=== PATIENT | male | born 1955 | race Caucasian/White ===

== ENCOUNTER 2019-03-14 00:37 | Inpatient (IN) ==
[2019-03-14] MEDS ORDERED: IOPAMIDOL 100 ML BOTTLE IV ONE (00:38)
[2019-03-14] MEDS ORDERED: HYDROmorphone 2 MG/ML VIAL IV SCH (01:00)
[2019-03-14] MEDS ORDERED: 0.9 % SODIUM CHLORIDE 1,000 ML IV ONE ×4 (01:00→09:17)
[2019-03-14] MEDS ORDERED: ONDANSETRON 4 MG/2 ML VIAL IV ONE (01:00)
--- NOTE | 2019-03-14 01:02 | Emergency Department Note ---
General Adult HPI - General Chief complaint: Chest Pain Stated complaint: chest pain Time Seen by Provider: 03/14/19 00:57 Source: patient Mode of arrival: ambulatory Limitations: no limitations - History of Present Illness HPI Narrative: This patient has been having significant left upper quadrant pain for the last several hours may be 2 to 3 hours. Does not really feel pain in his chest. He says that some mild discomfort coming on for 2 weeks. He says is often worse after eating. - Related Data Home Medications Medication Instructions Recorded Confirmed hydrocodone 5 mg-acetaminophen 325 See Rx Instructions PO Q6H PRN 06/08/18 03/14/19 mg tablet naproxen 250 mg tablet 250 mg PO .COMPLEX PRN tab 06/08/18 03/14/19 tiotropium bromide 18 mcg capsule 1 cap INHALATION QDAY 06/08/18 03/14/19 with inhalation device Previous Rx's Medication Instructions Recorded albuterol sulfate 90 mcg/actuation 2 puff INHALATION Q4H PRN #18 g 06/10/18 aerosol inhaler tiotropium bromide 18 mcg capsule 1 cap INHALATION QDAY #90 puff 06/30/18 with inhalation device albuterol sulfate 90 mcg/actuation 2 puff INHALATION Q4H PRN #54 g 12/14/18 aerosol inhaler fluticasone propionate-salmeterol 2 puff INHALATION BID #36 g 12/14/18 230 mcg-21 mcg/actuation HFA inhaler ipratropium-albuterol 0.5 mg-3 3 ml INHALATION Q6H PRN #360 ml 12/14/18 mg(2.5 mg base)/3 mL nebulization soln Allergies Allergy/AdvReac Type Severity Reaction Status Date / Time Varenicline Allergy Unknown "made him Verified 01/05/19 12:58 mean" Review of Systems All systems ED: reviewed and negative except as stated. Past Medical History - Past Medical History PMF Narrative: Medical History (Last Reviewed 01/05/19 @ 13:29 by Andre Bell MD) Tobacco dependence (Chronic) Dyspnea on exertion (Chronic) Asthmatic bronchitis , chronic (Chronic) Wrist fracture (Chronic) Shoulder dislocation (Chronic ~2009) Low vitamin B12 level (Chronic 02/05/14) Vitamin D deficiency (Chronic 02/05/14) Blood pressure elevated without history of HTN (Chronic 12/17/13) Sleep related hypoventilation in conditions classified elsewhere (Chronic 01/10/14) Heartburn (Chronic) Shortness of breath (Chronic) Cough (Chronic) Osteopenia (Chronic 12/07/13) Hyporeflexia (Chronic) Intention tremor (Chronic) Obesity (Chronic) Excessive drinking alcohol (Chronic) Daytime somnolence (Chronic) Fracture of thoracic vertebra, compression (Chronic 11/13/13) Constipation (Chronic) Low back pain (Chronic) Sleep paralysis (Chronic) Obstructive sleep apnea (Chronic 01/10/14) Snoring (Chronic) COPD (chronic obstructive pulmonary disease) (Chronic) Past Surgical History (Last Reviewed 01/05/19 @ 13:29 by Andre Bell MD) History of shoulder surgery (Chronic ~2010) S/P hernia repair (Chronic ~1996) Family History (Last Reviewed 01/05/19 @ 13:29 by Andre Bell MD) Father High blood pressure Snores Mother Snores - Social History smoking status: Current every day smoker Physical Exam Limitations: no limitations General appearance: alert Head: atraumatic Eye: Present: normal appearance ENT: Present: normal exam Neck: Present: normal inspection Chest: Present: normal inspection Respiratory: Present: normal lung sounds bilaterally Cardiovascular: Present: regular rate, normal rhythm, normal heart sounds Abdominal: Present: soft, distention, tenderness, guarding. Absent: rebound, rigidity Abdominal tenderness: Present: LUQ, moderate Neurological: Present: alert Psychiatric: Present: normal affect Skin: Present: warm, dry Course Vital Signs Temperature 98.2 F 03/14/19 00:41 Pulse Rate 90 03/14/19 00:41 Respiratory Rate 26 H 03/14/19 00:41 Blood Pressure 110/91 03/14/19 00:41 Pulse Oximetry (%) 96 03/14/19 00:41 Temperature 97.9 F 03/14/19 05:45 Pulse Rate 95 H 03/14/19 06:33 Respiratory Rate 23 H 03/14/19 06:33 Blood Pressure 85/58 03/14/19 06:33 Pulse Oximetry (%) 99 03/14/19 06:33 Medical Decision Making - [facility] Narrative Medical decision making narrative: CT scan showed a large left upper quadrant retroperitoneal hematoma near the spleen. It measured about 6 x 14 x 19 cm. His lipase was elevated in the 200 range. Alcohol was minimal. Patient does not take blood thinners and has no h istory of recent trauma to the left upper quadrant. I discussed this case with both Dr. Hendrix and Dr. Rubalcava. Dr. Hendrix said that this is a nonoperative type case but he would consult and requested Dr. Rubalcava to admit the patient. Dr. Rubalcava did accept the patient for admission at 3 AM. - Lab Data Lab results reviewed: Yes I reviewed the patient's lab results. Result diagrams: 03/14/19 01:05 03/14/19 01:05 Lab Results 03/14/19 03/14/19 03/14/19 Range/Units 01:05 01:05 01:05 WBC 14.3 H (4.5-11.0) K/mcL RBC 4.04 L (4.50-5.90) M/mcL Hgb 12.2 L (13.5-16.5) g/dL Hct 35.7 L (41.0-55.0) % POC Hct (41.0-55.0) % MCV 88.4 (80.0-100.0) fL MCH 30.2 (26.0-34.0) pg MCHC 34.2 (31.0-36.0) g/dL RDW 13.0 (11.5-14.5) % Plt Count 383 (140-440) K/mcL MPV 7.7 (7.4-10.4) fL Gran % 74.9 (38.0-78.0) % Lymph % (Auto) 15.6 (15.5-49.0) % Brule % (Auto) 6.9 (1.0-12.0) % Eos % (Auto) 2.3 (0.0-7.0) % Baso % (Auto) 0.3 (0.0-2.0) % Gran # 10.7 H (1.8-8.0) K/mcL Lymph # (Auto) 2.2 (1.5-4.8) K/mcL Brule # (Auto) 1.0 H (0.1-0.9) K/mcL Eos # (Auto) 0.3 (0.0-0.7) K/mcL Baso # (Auto) 0 (0.0-0.3) K/mcL PT (11.9-14.5) sec INR (0.9-1.1) POC Sodium (133-145) mmol/L Sodium 135 (133-145) mmol/L POC Potassium (3.3-5.1) mmol/L Potassium 3.9 (3.3-5.1) mmol/L POC Chloride (96-108) mmol/L Chloride 95 L (96-108) mmol/L Carbon Dioxide 25 (22-30) mmol/L POC Total CO2 (22-30) mmol/L Anion Gap 15.0 (8-16) POC BUN (8-23) mg/dl BUN 11 (8-23) mg/dl Creatinine 0.8 (0.7-1.2) mg/dl POC Creatinine (0.7-1.2) mg/dl GFR Calculation 96 Glucose 151 H (70-105) mg/dL POC Glucose (70-105) mg/dL Calcium 8.8 (8.6-10.4) mg/dl POC WB Ioniz Calcium (1.16-1.32) mmol/L Total Bilirubin 0.2 (0.0-1.0) mg/dL AST 17 (0-37) U/l ALT 18 (0-40) U/l Alkaline Phosphatase 53 (39-117) U/L Troponin T < 0.01 (0-0.03) ng/ml Total Protein 6.9 (5.9-8.4) gm/dL Albumin 3.8 (3.2-5.2) gm/dL Globulin 3.1 (2.2-3.7) gm/dL Albumin/Globulin Ratio 1.2 (1.0-2.3) Lipase 213 H (7-60) U/L Ethyl Alcohol (<0.010) gm/dl 03/14/19 03/14/19 03/14/19 Range/Units 01:05 01:05 01:30 WBC (4.5-11.0) K/mcL RBC (4.50-5.90) M/mcL Hgb (13.5-16.5) g/dL Hct (41.0-55.0) % POC Hct 30.0 L (41.0-55.0) % MCV (80.0-100.0) fL MCH (26.0-34.0) pg MCHC (31.0-36.0) g/dL RDW (11.5-14.5) % Plt Count (140-440) K/mcL MPV (7.4-10.4) fL Gran % (38.0-78.0) % Lymph % (Auto) (15.5-49.0) % Brule % (Auto) (1.0-12.0) % Eos % (Auto) (0.0-7.0) % Baso % (Auto) (0.0-2.0) % Gran # (1.8-8.0) K/mcL Lymph # (Auto) (1.5-4.8) K/mcL Brule # (Auto) (0.1-0.9) K/mcL Eos # (Auto) (0.0-0.7) K/mcL Baso # (Auto) (0.0-0.3) K/mcL PT 13.2 (11.9-14.5) sec INR 1.0 (0.9-1.1) POC Sodium 134 (133-145) mmol/L Sodium (133-145) mmol/L POC Potassium 3.6 (3.3-5.1) mmol/L Potassium (3.3-5.1) mmol/L POC Chloride 98 (96-108) mmol/L Chloride (96-108) mmol/L Carbon Dioxide (22-30) mmol/L POC Total CO2 27 (22-30) mmol/L Anion Gap (8-16) POC BUN 10 (8-23) mg/dl BUN (8-23) mg/dl Creatinine (0.7-1.2) mg/dl POC Creatinine 0.8 (0.7-1.2) mg/dl GFR Calculation Glucose (70-105) mg/dL POC Glucose 126 H (70-105) mg/dL Calcium (8.6-10.4) mg/dl POC WB Ioniz Calcium 1.07 L (1.16-1.32) mmol/L Total Bilirubin (0.0-1.0) mg/dL AST (0-37) U/l ALT (0-40) U/l Alkaline Phosphatase (39-117) U/L Troponin T (0-0.03) ng/ml Total Protein (5.9-8.4) gm/dL Albumin (3.2-5.2) gm/dL Globulin (2.2-3.7) gm/dL Albumin/Globulin Ratio (1.0-2.3) Lipase (7-60) U/L Ethyl Alcohol 0.013 H (<0.010) gm/dl - Radiology Data Radiology results reviewed: Yes I reviewed the patient's radiology results. Disposition Pt seen by ASSOCIATE DIRECTOR FINANCE/PA only: No Clinical Impression: Retroperitoneal hemorrhage, Pancreatitis Disposition: Xfer As Inpt ([facility]) Condition: Fair
[2019-03-14 01:34] LABS: Basophils # (Auto) 0 K/mcL (0.0-0.3); Basophils % (Auto) 0.3 % (0.0-2.0); Eosinophils # (Auto) 0.3 K/mcL (0.0-0.7); Eosinophils % (Auto) 2.3 % (0.0-7.0); Granulocytes % (Auto) 74.9 % (38.0-78.0); Hematocrit 35.7 % (41.0-55.0); Hemoglobin 12.2 g/dL (13.5-16.5); Lymphocytes # (Auto) 2.2 K/mcL (1.5-4.8); Lymphocytes % (Auto) 15.6 % (15.5-49.0); Mean Cell Volume 88.4 fL (80.0-100.0); Mean Corpuscular HGB Conc 34.2 g/dL (31.0-36.0); Mean Platelet Volume 7.7 fL (7.4-10.4); Monocytes % (Auto) 6.9 % (1.0-12.0); Platelet Count 383 K/mcL (140-440); RBC 4.04 M/mcL (4.50-5.90); WBC 14.3 K/mcL (4.5-11.0)
[2019-03-14 01:39] LABS: POC Blood Urea Nitrogen 10 mg/dl (8-23); POC CO2 27 mmol/L (22-30); POC Calcium, Ionized 1.07 mmol/L (1.16-1.32); POC Chloride 98 mmol/L (96-108); POC Creatinine 0.8 mg/dl (0.7-1.2); POC Glucose, Random 126 mg/dL (70-105); POC Potassium 3.6 mmol/L (3.3-5.1); POC Sodium 134 mmol/L (133-145)
[2019-03-14 01:57] LABS: Alcohol,Blood 0.013 gm/dl (<0.010)
[2019-03-14 02:03] LABS: ALT/SGPT 18 U/l (0-40); AST/SGOT 17 U/l (0-37); Albumin 3.8 gm/dL (3.2-5.2); Albumin/Globulin Ratio 1.2 (1.0-2.3); Alkaline Phosphatase 53 U/L (39-117); Bilirubin,Total 0.2 mg/dL (0.0-1.0); Blood Urea Nitrogen 11 mg/dl (8-23); Calcium 8.8 mg/dl (8.6-10.4); Carbon Dioxide 25 mmol/L (22-30); Chloride 95 mmol/L (96-108); Globulin 3.1 gm/dL (2.2-3.7); Glomerular Filtration Rate 96; Glucose 151 mg/dL (70-105)
[2019-03-14] MEDS ORDERED: HYDROmorphone 2 MG/ML VIAL IV ONE ×2 (03:07→04:05)
[2019-03-14 03:42] LABS: Prothrombin Time 13.2 sec (11.9-14.5)
--- NOTE | 2019-03-14 05:51 | XRay Report ---
INDICATION: Chest pain TECHNIQUE: AP chest x-ray,portable semiupright COMPARISON: Previous chest x-ray dated 08/26/2018 FINDINGS:Lungs are negative. No parenchymal infiltrate or mass. No focal pulmonary parenchymal abnormality. Heart size and vascularity are normal. Jaja and mediastinum are negative. No pleural fluid. IMPRESSION: 1. Negative AP chest x-ray 2. No interval change since 08/26/2018 Interpreted and Authenticated by: Ace Ferreira 03/14/19
[2019-03-14] MEDS ORDERED: NOREPINEPHRINE BITARTRATE 4 MG/4 ML VIAL IV ONE (06:06)
--- NOTE | 2019-03-14 06:16 | Internal Med History&Physical ---
Medical - H&P: [facility] Patient information: Note initiated : 03/14/19 at 6:16 am Service Date, if different from initiated Date: [] Patient: Armando Aoms a 63 y/o M admitted on 03/14/19 for chest pain. Chief Complaint: [] Chief complaint: Abdominal pain History of present illness: Mr. Amos is a 63 year old M with a known history of COPD managed by pulmonology Dr. Bell. Patient presents to the ER with progressive upper abdominal pain that started roughly 2 weeks prior to presentation that has gradually intensified. He denies abdominal trauma or nausea or emesis. He further denies hematemesis or bloody stool. He denies weight loss. He denies pain worsening with respiration however pain is made worse by eating. Initial work-up in the ER was consistent with retroperitoneal hemorrhage on CT. Surgery was consulted and recommended hospitalist service to admit for monitoring and observation. Patient initial hemoglobin was 12.4 with systolics around mid 90s.. Patient received crystalloids. Initial white count 14.3. INR 1 creatinine 0.8. Hospitalist service was subsequently consulted At the time of evaluation patient is slightly anxious. Systolics around low 90s. No tachycardia or diaphoresis. Patient able to answer most of the questions. He complains of abdominal discomfort with pain 6 out of 10 to 8 out of 10 epigastric area relating to the flank and back. He denies recent trauma, URI symptoms, prior history of similar episodes or hospitalization or peptic ulcer disease. He is mildly short of breath but consistent with his baseline COPD. Review of systems A 10 point review system was performed and is negative except was discussed above Medical - H&P: PMH Medical history: Tobacco dependence (Chronic) Dyspnea on exertion (Chronic) Asthmatic bronchitis , chronic (Chronic) Wrist fracture (Chronic) Shoulder dislocation (Chronic ~2009) with chip of bone Low vitamin B12 level (Chronic 02/05/14) Vitamin D deficiency (Chronic 02/05/14) Blood pressure elevated without history of HTN (Chronic 12/17/13) Sleep related hypoventilation in conditions classified elsewhere (Chronic 01/10/14) Heartburn (Chronic) Shortness of breath (Chronic) Cough (Chronic) Osteopenia (Chronic 12/07/13) Hyporeflexia (Chronic) Intention tremor (Chronic) Obesity (Chronic) Excessive drinking alcohol (Chronic) Daytime somnolence (Chronic) Fracture of thoracic vertebra, compression (Chronic 11/13/13) Constipation (Chronic) Low back pain (Chronic) Sleep paralysis (Chronic) Obstructive sleep apnea (Chronic 01/10/14) Snoring (Chronic) COPD (chronic obstructive pulmonary disease) (Chronic) Surgical History History of shoulder surgery (Chronic ~2010) S/P hernia repair (Chronic ~1996) Family History Father High blood pressure Snores Mother Snores Social History marital status: single occupational status: employed smoking status: Current every day smoker tobacco type: cigarettes per day: 15 pack-years: 40 alcohol intake frequency: 2+ drinks per day substance use type: does not use Medical - H&P: Meds Home Medications Medication Instructions Recorded Confirmed Type hydrocodone 5 mg-acetaminophen 325 See Rx Instructions PO Q6H PRN 06/08/18 03/14/19 History mg tablet naproxen 250 mg tablet 250 mg PO .COMPLEX PRN tab 06/08/18 03/14/19 History tiotropium bromide 18 mcg capsule 1 cap INHALATION QDAY 06/08/18 03/14/19 History with inhalation device albuterol sulfate 90 mcg/actuation 2 puff INHALATION Q4H PRN #18 g 06/10/18 03/14/19 Rx aerosol inhaler tiotropium bromide 18 mcg capsule 1 cap INHALATION QDAY #90 puff 06/30/18 03/14/19 Rx with inhalation device albuterol sulfate 90 mcg/actuation 2 puff INHALATION Q4H PRN #54 g 12/14/18 03/14/19 Rx aerosol inhaler fluticasone propionate-salmeterol 2 puff INHALATION BID #36 g 12/14/18 03/14/19 Rx 230 mcg-21 mcg/actuation HFA inhaler ipratropium-albuterol 0.5 mg-3 3 ml INHALATION Q6H PRN #360 ml 12/14/18 03/14/19 Rx mg(2.5 mg base)/3 mL nebulization soln Allergies Allergy/AdvReac Type Severity Reaction Status Date / Time Varenicline AdvReac Mild Agitated Verified 03/14/19 07:55 Medical - H&P: Exam - Constitutional Vitals: Temp Pulse Resp BP Pulse Ox 98.2 F 98 H 15 80/61 99 03/14/19 05:38 03/14/19 05:38 03/14/19 05:38 03/14/19 05:38 03/14/19 05:38 General appearance: moderate distress Exam: Alert oriented Head normocephalic Oral cavity dry Eye movement symmetrical No ear nose discharge Neck no lymphadenopathy S1-S2 regular rhythm Diminished breath sounds bases Abdomen distended, tender around the epigastric/left flank Lower extremity no cyanosis clubbing no joint swelling Skin no suspicious lesion Psych anxious but cooperative Neuro nonfocal Medical - H&P: Reslt - Labs CBC & Chem 7: 03/14/19 08:00 03/14/19 01:05 Labs: Short CBC 03/14/19 Range/Units 01:05 WBC 14.3 H (4.5-11.0) K/mcL Hgb 12.2 L (13.5-16.5) g/dL Hct 35.7 L (41.0-55.0) % Plt Count 383 (140-440) K/mcL BMP 03/14/19 01:05 Sodium 135 Potassium 3.9 Chloride 95 L Carbon Dioxide 25 BUN 11 Creatinine 0.8 Glucose 151 H Calcium 8.8 Cardiac Enzymes 03/14/19 Range/Units 01:05 Troponin T < 0.01 (0-0.03) ng/ml Liver Function 03/14/19 Range/Units 01:05 Total Bilirubin 0.2 (0.0-1.0) mg/dL AST 17 (0-37) U/l ALT 18 (0-40) U/l Alkaline Phosphatase 53 (39-117) U/L Albumin 3.8 (3.2-5.2) gm/dL Medical - H&P: A/P - Narrative A/P Narrative: * Acute retroperitoneal hemorrhage nontraumatic-surgery consulted. Continue close monitoring in ICU. Every 2 H&H and transfuse as indicated. Crystalloid support. Keep n.p.o. No evidence of colopathy. * History of COPD continue bronchodilators * abdominal pain continue Pain management as indicated. * History of JOHNNY * Tobacco dependence * Full code * Prophylaxis-hold in light of bleeding Plan * Inpatient ICU admit in light of intracranial hemorrhage * Surgery consult * crystalloid/pressors as indicated to keep map at goal * PRBC transfusion as indicated * 2 hourly hemoglobin check * Prior medical condition management on as above
[2019-03-14] MEDS ORDERED: LACTATED RINGERS 1,000 ML IV ONE (06:24)
[2019-03-14] MEDS ORDERED: LACTATED RINGERS 1,000 ML IV SCH ×2 (06:30)
--- NOTE | 2019-03-14 06:38 | Cat Scan Report ---
CLINICAL INFORMATION: Left upper quadrant pain TECHNIQUE: Axial postcontrast enhanced images through the abdomen and pelvis. Sagittal and coronal reformatted images COMPARISON: None. FINDINGS: Spleen and left upper quadrant are abnormal. There is a large retroperitoneal hematoma in the left upper quadrant as well as moderate hemoperitoneum. Spleen is abnormal with an appearance consistent with subcapsular hemorrhage. No focal intrasplenic, intraparenchymal hematoma. Patient does not have a history of trauma. Appearance is consistent with splenic rupture with a large subcapsular hematoma and retroperitoneal hematoma. There is no contrast extravasation. There is no pseudoaneurysm. Spleen appears otherwise negative without definite splenic enlargement. No focal intrasplenic mass. Spontaneous splenic rupture is an unusual occurrence but is described. Splenic and portal veins are opacified but appear small. Inferior vena cava is small. Hypotension is possible. Clinical correlation is necessary. Splenic artery is normal. There are no significant perisplenic or retroperitoneal varices. No evidence for cirrhosis. Lung bases are negative. No pleural fluid or pericardial fluid. Liver is negative. No focal intrahepatic abnormality. Liver contour is smooth. No evidence for cirrhosis. Gallbladder is present. No calcified gallstones. No dilated bile ducts. There is perihepatic fluid. LESTER values are approximately 35 consistent with hemorrhagic fluid. Negative pancreas. No pancreatic mass. No peripancreatic abnormality. No evidence for pancreatitis Negative adrenal glands. Kidneys are negative. No solid mass. No hydronephrosis. There is a benign right renal cyst. No hydroureter. No ureteral calculi. No bladder stones. Abdominal aorta is negative. This calcification but no abdominal aortic aneurysm. No acute lumbar compression fracture. No sacral or pelvic fracture. Examination was initially interpreted by [facility]. This report is discrepant as normal spleen was described. Patient's nurse in the intensive care unit, Dr. Verma, and Dr. Hendrix were all called with these results, 03/14/2019, 0630 IMPRESSION: 1. Acute retroperitoneal and subcapsular perisplenic hemorrhage. Associated hemoperitoneum 2. Findings are consistent with splenic rupture, possibly spontaneous. 3. Inferior vena cava, splenic vein, portal vein are small in caliber. Possible hypotension. 4. No intrasplenic abnormality. No splenomegaly. Interpreted and Authenticated by: Ace Ferreira 03/14/19
[2019-03-14 06:43] LABS: POC Blood Urea Nitrogen 15 mg/dl (8-23); POC CO2 26 mmol/L (22-30); POC Calcium, Ionized 1.08 mmol/L (1.16-1.32); POC Chloride 101 mmol/L (96-108); POC Creatinine 1.1 mg/dl (0.7-1.2); POC Glucose, Random 172 mg/dL (70-105); POC Potassium 5.9 mmol/L (3.3-5.1); POC Sodium 133 mmol/L (133-145)
[2019-03-14] MEDS ORDERED: 0.9 % SODIUM CHLORIDE 250 ML IV SCH ×4 (07:15→10:54)
[2019-03-14] MEDS ORDERED: PIPERACILLIN SODIUM/TAZOBACTAM 3.375 GM in DEXTROSE 5% IN WATER 50 ML IV ONE (07:43)
[2019-03-14] MEDS ORDERED: methylPREDNISolone SOD SUCC 40 MG/ML VIAL IV ONE (07:58)
[2019-03-14] MEDS ORDERED: methylPREDNISolone SOD SUCC 125 MG/2 ML VIAL IV ONE (08:01)
[2019-03-14 08:03] LABS: Basophils # (Auto) 0 K/mcL (0.0-0.3); Basophils % (Auto) 0.2 % (0.0-2.0); Eosinophils # (Auto) 0.1 K/mcL (0.0-0.7); Eosinophils % (Auto) 0.7 % (0.0-7.0); Granulocytes % (Auto) 82.4 % (38.0-78.0); Hematocrit 25.4 % (41.0-55.0); Hemoglobin 8.5 g/dL (13.5-16.5); Lymphocytes # (Auto) 1.9 K/mcL (1.5-4.8); Lymphocytes % (Auto) 12.9 % (15.5-49.0); Mean Cell Volume 89.9 fL (80.0-100.0); Mean Corpuscular HGB Conc 33.6 g/dL (31.0-36.0); Mean Platelet Volume 8.1 fL (7.4-10.4); Monocytes # (Auto) 0.5 K/mcL (0.1-0.9); Monocytes % (Auto) 3.8 % (1.0-12.0); Platelet Count 363 K/mcL (140-440); RBC 2.83 M/mcL (4.50-5.90); Red Cell Distribution Width 13.1 % (11.5-14.5); WBC 14.6 K/mcL (4.5-11.0)
[2019-03-14] MEDS ORDERED: methylPREDNISolone SOD SUCC 125 MG/2 ML VIAL ONE (08:03)
--- NOTE | 2019-03-14 08:08 | General Surg History&Physical ---
History of Present Illness Patient information: Note initiated : 03/14/19 at 8:05 am Service Date, if different from initiated Date: [] Patient: Armando Amos 63 y/o M admitted on 03/14/19 for chest pain. Chief Complaint: [] HPI: Mr. Amos is a 63 year old M admitted to ICU last evening for suspected retroperitoneal bleed according to reading on CT. The patient did started to deteriorate with drop in blood pressure. He was given IV fluids and blood and started on levo fed by Dr. Rubalcava. reread of the C3 by our radiologist shows a major perisplenic hematoma with some intraperitoneal blood down the right gutter into the pelvis and some over the liver compatible with splenic rupture. Patient has no history of infection or cancer minute type. He is not on any blood thinner medications. He is stable now and has received 3 units of blood. He is counseled for emergency laparotomy. Past History Past medical history: Chronic obstructive lung disease Obstructive sleep apnea Alcoholism with alcohol excess Past social history: Excessive daily alcohol use Daily tobacco use Medications and Allergies Home Medications Medication Instructions Recorded Confirmed Type hydrocodone 5 mg-acetaminophen 325 See Rx Instructions PO Q6H PRN 06/08/18 03/14/19 History mg tablet naproxen 250 mg tablet 250 mg PO .COMPLEX PRN tab 06/08/18 03/14/19 History tiotropium bromide 18 mcg capsule 1 cap INHALATION QDAY 06/08/18 03/14/19 History with inhalation device albuterol sulfate 90 mcg/actuation 2 puff INHALATION Q4H PRN #18 g 06/10/18 03/14/19 Rx aerosol inhaler tiotropium bromide 18 mcg capsule 1 cap INHALATION QDAY #90 puff 06/30/18 03/14/19 Rx with inhalation device albuterol sulfate 90 mcg/actuation 2 puff INHALATION Q4H PRN #54 g 12/14/18 03/14/19 Rx aerosol inhaler fluticasone propionate-salmeterol 2 puff INHALATION BID #36 g 12/14/18 03/14/19 Rx 230 mcg-21 mcg/actuation HFA inhaler ipratropium-albuterol 0.5 mg-3 3 ml INHALATION Q6H PRN #360 ml 12/14/18 03/14/19 Rx mg(2.5 mg base)/3 mL nebulization soln Allergies Allergy/AdvReac Type Severity Reaction Status Date / Time Varenicline AdvReac Mild Agitated Verified 03/14/19 07:55 Exam Temp Pulse Resp BP Pulse Ox 97.9 F 95 H 23 H 85/58 99 03/14/19 05:45 03/14/19 06:33 03/14/19 06:33 03/14/19 06:33 03/14/19 06:33 - General physical appearance well developed, well nourished, no distress, moderate distress, moderate pain, obese - Eyes PERRL, normal ocular movement - ENT normal pinna, normal nares, normal mucosa, no hearing loss, no congestion - Head Head exam IM: Present: atraumatic, normocephalic - Neck no masses, no bruits, trachea midline, no lymphadenopathy, no venous distension - Cardiovascular Cardiovascular exam IM: Present: normal rate and rhythm, RRR, +S1, +S2, tachycardia. Absent: JVD - Respiratory normal expansion, normal respiratory effort, clear to percussion, clear to auscultation - Abdomen Abdomen: Present: soft, tender (distended abdomen with tenderness in the entire right upper quadrant; active bowel sounds), bowel sounds Hernia: Present: none - Genitourinary Present: normal penis with no external lesions - Integumentary Present: no rash, no growths, no abnormal pigmentation - Neurologic Present: normal coordination, normal sensation - Musculoskeletal Present: normal gait, normal posture - Psychiatric Present: oriented to time, oriented to person, oriented to place, speech is normal, memory intact Assessment and Plan (1) Nontraumatic splenic rupture Patient is counseled for emergency laparotomy with splenectomy. He is clinically stable at this time after 3 units of packed red cells. Status: Acute (2) COPD (chronic obstructive pulmonary disease) Patient is informed that he may need to be ventilated postoperatively since I do not know the severity of his lung disease. Status: Chronic Qualifiers: COPD type: unspecified COPD Qualified Code(s): J44.9 - Chronic obstructive pulmonary disease, unspecified (3) Obstructive sleep apnea Status: Chronic
[2019-03-14] MEDS ORDERED: HEPARIN/NS 500 ML IV ONE (08:09)
[2019-03-14] MEDS ORDERED: HEPARIN/NS 500 ML IV SCH ×2 (08:15→10:54)
[2019-03-14] MEDS ORDERED: METOCLOPRAMIDE 10 MG/2 ML VIAL IV ONE (08:17)
[2019-03-14] MEDS ORDERED: METOCLOPRAMIDE 10 MG/2 ML VIAL ONE (08:19)
[2019-03-14] MEDS ORDERED: LIDOCAINE HCL/PF 100 MG/5 ML SYRINGE IV ONE (08:40)
[2019-03-14] MEDS ORDERED: KETAMINE 100 MG/ML ML IV ONE (08:40)
[2019-03-14] MEDS ORDERED: fentaNYL 250 MCG/5 ML VIAL IV ONE (08:40)
[2019-03-14] MEDS ORDERED: MAGNESIUM SULFATE 2 GM/50 ML BAG IV ONE (08:40)
[2019-03-14] MEDS ORDERED: ePHEDrine 50 MG/ML AMPUL IV ONE (08:40)
[2019-03-14] MEDS ORDERED: PROPOFOL 200 MG/20 ML VIAL IV ONE (08:40)
[2019-03-14] MEDS ORDERED: SODIUM CHLORIDE IV ONE (08:40)
[2019-03-14] MEDS ORDERED: MIDAZOLAM 5 MG/5 ML VIAL IV ONE (08:40)
[2019-03-14] MEDS ORDERED: DEXAMETHASONE 10 MG/ML VIAL IV ONE (08:40)
[2019-03-14] MEDS ORDERED: ROCURONIUM 10 MG/ML ML IV ONE (08:40)
[2019-03-14] MEDS ORDERED: CALCIUM CHLORIDE 1,000 MG/10 ML SYRINGE IV ONE (08:40)
[2019-03-14] MEDS ORDERED: PHENYLEPHRINE 10 MG/ML VIAL IV ONE (08:40)
[2019-03-14] MEDS ORDERED: KCL IV ONE (08:40)
[2019-03-14] MEDS ORDERED: NOREPINEPHRINE BITARTRATE 16 MG in 0.9 % SODIUM CHLORIDE 234 ML IV SCH ×2 (09:15→09:49)
[2019-03-14] MEDS ORDERED: 0.9 % SODIUM CHLORIDE 10 ML SYRINGE IV PRN ×2 (09:37→10:54)
[2019-03-14 09:58] LABS: POC Blood Urea Nitrogen 13 mg/dl (8-23); POC CO2 23 mmol/L (22-30); POC Calcium, Ionized 1.13 mmol/L (1.16-1.32); POC Chloride 106 mmol/L (96-108); POC Creatinine 0.7 mg/dl (0.7-1.2); POC Glucose, Random 151 mg/dL (70-105); POC Potassium 5.6 mmol/L (3.3-5.1); POC Sodium 135 mmol/L (133-145)
--- NOTE | 2019-03-14 10:08 | Brief Operative Note ---
Date of procedure: 03/14/19 Pre-op diagnosis: spontaneous splenic rupture Post-op diagnosis: other (spontaneous splenic rupture with hemoperitoneum) Procedure: EXPLORATORY LAPAROTOMY WITH SPLENECTOMY Grafts/Implants: No (#10 [place] DRAIN X 1) Anesthesia: GETA Findings: MAJOR RUPTURE WITH SEPARATION OF CAPSULE AND FREE MASSIVE HEMOPERITONEUM Complications: none Surgeon: Jessica Hendrix Specimens Removed/Pathology: other (SPLEEN) Condition: stable Disposition: ICU
[2019-03-14] MEDS ORDERED: PROMETHAZINE 25 MG/ML VIAL IV PRN ×2 (10:20→10:54)
[2019-03-14] MEDS ORDERED: LORazepam 2 MG/ML VIAL IV PRN (10:20)
[2019-03-14] MEDS ORDERED: HYDROmorphone 2 MG/ML VIAL IV PRN (10:20)
[2019-03-14] MEDS ORDERED: 0.9 % SODIUM CHLORIDE 1,000 ML IV SCH ×2 (10:30→10:54)
[2019-03-14] MEDS ORDERED: ACETAMINOPHEN 1,000 MG in PREMIX 1 BAG IV SCH (10:30)
[2019-03-14] MEDS ORDERED: PIPERACILLIN SODIUM/TAZOBACTAM 3.375 GM in DEXTROSE 5% IN WATER 50 ML IV SCH (11:00)
--- NOTE | 2019-03-14 11:00 | XRay Report ---
INDICATION: Central venous catheter placement TECHNIQUE: AP chest x-ray,portable supine COMPARISON: Previous, preoperative evaluation dated 03/14/2019 FINDINGS:Endotracheal tube tip 5 cm above the janeth. There is a right-sided central venous catheter with its tip in appropriate position for superior vena cava. No thorax identified on this AP, supine radiograph. There is an esophagogastric tube with its tip in the stomach. There are multiple skin conor in the upper abdomen. There is a surgical drain in the left upper quadrant Lungs are negative. No parenchymal infiltrate or mass. No focal abnormality. Heart size and vascularity are within normal limits. This report was called to the operating room. IMPRESSION: 1. Right central venous catheter in the superior vena cava. Esophagogastric tube and endotracheal tube as above 2. No focal pulmonary parenchymal infiltrate or mass. Heart size and vascularity are normal Interpreted and Authenticated by: Ace Ferreira 03/14/19
[2019-03-14] MEDS: PIPERACILLIN SODIUM/TAZOBACTAM 3.375 GM in DEXTROSE 5% IN WATER 50 ML IV SCH ×2 (11:15→19:15)
[2019-03-14] MEDS: 0.9 % SODIUM CHLORIDE 1,000 ML IV SCH (11:15)
--- NOTE | 2019-03-14 11:31 | Procedure Note ---
Procedures - Arterial Line Date of Procedure: 03/14/19 Time out performed: Yes Size (Gauge): 20 Technique used: guide wire technique Post-Procedure: dry sterile dressing placed, easily flushed, waveform correlation Patient tolerated procedure: well, no complications Complications: none Site: right, radial Additional comments: Right radial arterial catheter placed in ICU pre-operatively. - Central Line Placement Right IJ Consent obtained: verbal consent Date of Procedure: 03/14/19 Time out performed: Yes Patient placed on monitor/pulse ox: Yes MD prep: mask, sterile gown, sterile gloves, cap Central line prep: 2% Chlorhexidine scrub, large sterile drapes applied, proper hand hygiene Ultrasound used for placement: Yes Central line lumen inserted: quad, 16 cm Post procedure: sutured in place, good blood return, all ports aspirated, flushed, capped, sterile dressing applied Post procedure x-ray: tip of catheter in good position Patient tolerated procedure: well Complications: none Additional comments: Right IJ large bore multi-access catheter placed with typical sterile technique after induction of anesthesia and airway securement. After surgical procedure, quad lumen central venous catheter placed with guidewire technique and MAC catheter discontinued.
[2019-03-14] MEDS ORDERED: METOCLOPRAMIDE 10 MG/2 ML VIAL IV SCH (12:00)
[2019-03-14] MEDS: MIDAZOLAM PF 50 MG in 0.9 % SODIUM CHLORIDE 90 ML IV SCH (12:09)
[2019-03-14] MEDS: fentaNYL 2,500 MCG in 0.9 % SODIUM CHLORIDE 200 ML IV SCH (12:10)
[2019-03-14] MEDS: METOCLOPRAMIDE 10 MG/2 ML VIAL IV SCH ×2 (12:26→19:15)
[2019-03-14] MEDS: ACETAMINOPHEN 1,000 MG/100 ML BOTTLE IV SCH ×3 (12:26→22:33)
[2019-03-14 13:25] LABS: POC Blood Urea Nitrogen 15 mg/dl (8-23); POC CO2 27 mmol/L (22-30); POC Calcium, Ionized 1.05 mmol/L (1.16-1.32); POC Chloride 103 mmol/L (96-108); POC Creatinine 0.9 mg/dl (0.7-1.2); POC Glucose, Random 133 mg/dL (70-105); POC Sodium 135 mmol/L (133-145)
[2019-03-14] MEDS ORDERED: 0.9 % SODIUM CHLORIDE 500 ML IV ONE (13:38)
[2019-03-14] MEDS ORDERED: FUROSEMIDE 20 MG/2 ML VIAL IV ONE (13:38)
[2019-03-14] MEDS: NOREPINEPHRINE BITARTRATE 16 MG in 0.9 % SODIUM CHLORIDE 234 ML IV SCH (13:40)
--- NOTE | 2019-03-14 14:22 | Internal Med Progress Note ---
Medical - PN: Subj Patient information: Note initiated : 03/14/19 at 2:16 pm Service Date, if different from initiated Date: [] Patient: Armando Amos a 63 y/o M admitted on 03/14/19 for chest pain. Chief Complaint: [] Pertinent ROS: Mr. Amos is a 63 year old M with a known history of COPD managed by pulmonology Dr. Bell. Patient presents to the ER with progressive upper abdominal pain that started roughly 2 weeks prior to presentation that has gradually intensified. He denies abdominal trauma or nausea or emesis. He further denies hematemesis or bloody stool. He denies weight loss. He denies pain worsening with respiration however pain is made worse by eating. Initial work-up in the ER was consistent with retroperitoneal hemorrhage on CT. Surgery was consulted and recommended hospitalist service to admit for monitoring and observation. Patient initial hemoglobin was 12.4 with systolics around mid 90s.. Patient received crystalloids. Initial white count 14.3. INR 1 creatinine 0.8. Hospitalist service was subsequently consulted At the time of evaluation patient is slightly anxious. Systolics around low 90s. No tachycardia or diaphoresis. Patient able to answer most of the questions. He complains of abdominal discomfort with pain 6 out of 10 to 8 out of 10 epigastric area relating to the flank and back. He denies recent trauma, URI symptoms, prior history of similar episodes or hospitalization or peptic ulcer disease. He is mildly short of breath but consistent with his baseline COPD. 03/14 6.30- Responded to nurse call early this morning with dropping systolics. Hematocrit down to 24 from 35. Systolics down to mid 70s. Start aggressive crystalloid resuscitation/massive transfusion protocol with 4 units PRBC/vasopressors. Surgery consulted for emergent surgical intervention. 03/14-2 PM Patient now postop expiratory restart me. Status post 6 units PRBC transfusion. Currently on mechanical ventilation. On pressors to maintain map at goal. ICU sedation for mechanical ventilation on fentanyl/Versed. Potassium at 6. Initiate hyperkalemia protocol. Continue mechanical ventilation per protocol. Continue diuresis/crystalloids - Constitutional Vitals: Vital Signs Temp Pulse Resp BP Pulse Ox 96.1 F L 79 16 105/77 100 03/14/19 13:39 03/14/19 13:39 03/14/19 13:39 03/14/19 13:39 03/14/19 13:39 Period Temp Pulse Resp BP Sys/Best Pulse Ox Last 24 Hr 94.3 F-98.2 F 73-109 9-38 67-157/40-129 84-100 Intake and Output 03/14/19 03/14/19 03/14/19 05:59 13:59 21:59 Intake Total 1999 1868 Output Total 1080 Balance 1999 789 Weight 210 lb Intake & Output: Intake & Output 03/14/19 03/14/19 03/14/19 05:59 13:59 21:59 Intake Total 1999 1868 Output Total 1080 Balance 1999 789 Weight 210 lb Intake: IV 1999 1868 Sodium Chloride 0.9% 1,000 ml @ 1999 1000 Wide Open IV BOLUS ONE Rx#: [id number] Sodium Chloride 0.9% 250 ml @ 19 20 mls/hr IV .[id number] [facility] Rx#: [id number] Lactated Ringers 1,000 ml @ 150 800 mls/hr IV .[id number] [facility] Rx#: [id number] Zosyn 3.375 gm In Dextrose 5% 50 in Water 50 ml @ 100 mls/hr IV ONCE ONE Rx#:[id number] Output: Drainage 30 Left Lower MONIKA Drain 30 Urine Catheter Amount 300 Estimated Blood Loss 750 Other: Urine Appearance Clear Urine Color Dark Yellow Exam: On mechanical ventilation 40% FiO2 PEEP 5 Jessica is draining clear urine Postoperative dressing abdomen A-line in place Medical - PN: Obj Da - Labs CBC & Chem 7: 03/14/19 08:00 03/14/19 01:05 Labs: Abnormal Lab Results 03/14/19 03/14/19 03/14/19 13:06 09:53 08:00 WBC 14.6 H RBC 2.83 L Hgb 8.5 L Hct 25.4 L POC Hct 37.0 L 27.0 L Gran % 82.4 H Lymph % (Auto) 12.9 L Gran # 12.0 H [place] # (Auto) POC Potassium 6.0 H* 5.6 H Chloride Glucose POC Glucose 133 H 151 H POC WB Ioniz Calcium 1.05 L 1.13 L Lipase Ethyl Alcohol 03/14/19 03/14/19 03/14/19 06:25 01:30 01:05 WBC RBC Hgb Hct POC Hct 24.0 L 30.0 L Gran % Lymph % (Auto) Gran # [place] # (Auto) POC Potassium 5.9 H* Chloride Glucose POC Glucose 172 H 126 H POC WB Ioniz Calcium 1.08 L 1.07 L Lipase Ethyl Alcohol 0.013 H 03/14/19 03/14/19 01:05 01:05 WBC 14.3 H RBC 4.04 L Hgb 12.2 L Hct 35.7 L POC Hct Gran % Lymph % (Auto) Gran # 10.7 H [place] # (Auto) 1.0 H POC Potassium Chloride 95 L Glucose 151 H POC Glucose POC WB Ioniz Calcium Lipase 213 H Ethyl Alcohol Meds: Medications Hydromorphone HCl (Dilaudid) 1 mg IV Q2HP PRN PRN Reason: PAIN LEVEL > 6 Acetaminophen (Ofirmev) 1,000 mg in 100 mls @ 200 mls/hr IV Q6H [facility] Stop: 03/15/19 10:20 Last Admin: 03/14/19 12:26 Dose: 200 mls/hr Documented by: Heparin Sodium/Sodium Chloride (Heparin/Ns) 500 mls @ 0 mls/hr IV .Q0M JENNY; Protocol Norepinephrine Bitartrate 16 (mg/ Sodium Chloride) 250 mls @ 9.375 mls/hr IV Q24H JNENY; Protocol Sodium Chloride (Sodium Chloride 0.9%) 250 mls @ 20 mls/hr IV .[id number] [facility] Stop: 03/14/19 19:44 Last Admin: 03/14/19 12:13 Dose: Not Given Documented by: Piperacillin Sod/Tazobactam (Sod 3.375 gm/ Dextrose) 50 mls @ 100 mls/hr IV Q6H [facility]; Protocol Last Admin: 03/14/19 11:15 Dose: 100 mls/hr Documented by: Sodium Chloride (Sodium Chloride 0.9%) 1,000 mls @ 75 mls/hr IV .[id number] [facility] Last Admin: 03/14/19 11:15 Dose: 75 mls/hr Documented by: Midazolam HCl 50 mg/ Sodium (Chloride) 100 mls @ 3.81 mls/hr IV Q24H [facility]; Protocol Last Admin: 03/14/19 12:09 Dose: 0.02 mg/kg/hr, 3.81 mls/hr Documented by: Fentanyl 2,500 mcg/ Sodium (Chloride) 250 mls @ 2.5 mls/hr IV Q24H JENNY; Protocol Last Admin: 03/14/19 12:10 Dose: 25 mcg/hr, 2.5 mls/hr Documented by: Lorazepam (Ativan) 1 mg IV Q6HP PRN PRN Reason: ANXIETY/SEDATION Metoclopramide HCl (Reglan) 10 mg IV Q6 JENNY Last Admin: 03/14/19 12:26 Dose: 10 mg Documented by: Promethazine HCl (Phenergan) 12.5 mg IV Q4HP PRN PRN Reason: Nausea And Vomiting Sodium Chloride (Saline Flush) 10 ml IV UD PRN PRN Reason: Bleeding Sodium Chloride (Saline Flush) 10 ml IV Q12 JENNY Sodium Chloride (Saline Flush) 10 ml IV Q8 JENNY Medical - PN: A/P - Time Spent With Patient Total time spent is greater than 50% in coordination of care (as documented) at patient's floor/unit and/or counseling patient: Greater than 35 minutes (Critical care time) (1) Nontraumatic splenic rupture Status: Acute Assessment and plan: * Acute intra-abdominal/intraperitoneal hemorrhage secondary to splenic rupture. Status post expiratory laparotomy. patient now immediately postop * Hemorrhagic shock with acute blast loss anemia status post 6 unit blood transfusion/2-hour hemoglobin checks/crystalloids/vasopressor support to aria ntain map at goal * Mechanical ventilation for airway protection and for hypoxic respiratory failure-continue ICU sedation on fentanyl/Versed. Continue mechanical ventilation per protocol. * Hyperkalemia secondary to massive hemolysis- Continue crystalloid/diuretics nephrology consult. Avoid Kayexalate in light of abdominal surgery and postoperative ileus. * Hemorrhagic shock-initiate massive transfusion protocol with 4 units PRBC/crystalloids/vasopressors to keep map at goal * Full code * Prophylaxis SCDs Plan * Continue crystalloid/diuresis * Monitor renal function * Shock management per protocol on vasopressors/crystalloids * mechanical ventilation per protocol * Postop care per surgery * Nephrology consult * Remains critically ill Additional critical transplant in excess of 55 minutes Current Visit: Yes Procedures - Arterial Line Size (Gauge): 20
[2019-03-14] MEDS ORDERED: SODIUM POLYSTYRENE SULFONATE 15 GM/60 ML SUSPENSION PR ONE (14:34)
--- NOTE | 2019-03-14 14:44 | Nephrology Consult Note ---
History of Present Illness - Reason for Consult Patient information: Note initiated : 03/14/19 at 2:41 pm Patient: Armando Amos 63 y/o M admitted on 03/14/19 for chest pain. Consult date: 03/14/19 hyperkalemia Requesting physician: Domenic Verma - Chief Complaint Hyperkalemia - History of Present Illness Armando Amos is a 63-year-old male with chronic obstructive pulmonary disease presented to ED for progressive upper abdominal pain for about 2 weeks. Work-up was consistent with retroperitoneal hemorrhage on CT. Surgery was consulted. The patient was admitted. This morning, the patient had acute hypotension and anemia requiring 4 units PRBC and vasopressors. The patient had emergency exploratory laparotomy which showed major splenic rupture with separation of capsule and free massive hemoperitoneum and required with splenectomy. Postop labs were significant for hyperkalemia. He continues to have urine output. Review of Systems ROS unobtainable: due to endotracheal tube Past History Past medical history: Medical History (Last Reviewed 01/05/19 @ 13:29 by Andre Bell MD) Tobacco dependence (Chronic) Dyspnea on exertion (Chronic) Asthmatic bronchitis , chronic (Chronic) Wrist fracture (Chronic) Shoulder dislocation (Chronic ~2009) Low vitamin B12 level (Chronic 02/05/14) Vitamin D deficiency (Chronic 02/05/14) Blood pressure elevated without history of HTN (Chronic 12/17/13) Sleep related hypoventilation in conditions classified elsewhere (Chronic 01/10/14) Heartburn (Chronic) Shortness of breath (Chronic) Cough (Chronic) Osteopenia (Chronic 12/07/13) Hyporeflexia (Chronic) Intention tremor (Chronic) Obesity (Chronic) Excessive drinking alcohol (Chronic) Daytime somnolence (Chronic) Fracture of thoracic vertebra, compression (Chronic 11/13/13) Constipation (Chronic) Low back pain (Chronic) Sleep paralysis (Chronic) Obstructive sleep apnea (Chronic 01/10/14) Snoring (Chronic) COPD (chronic obstructive pulmonary disease) (Chronic) Past surgical history: Past Surgical History (Last Reviewed 01/05/19 @ 13:29 by Andre Bell MD) History of shoulder surgery (Chronic ~2010) S/P hernia repair (Chronic ~1996) Past family history: Family History (Last Reviewed 01/05/19 @ 13:29 by Andre Bell MD) Father High blood pressure Snores Mother Snores Past social history: Daily alcohol and tobacco use Medications and Allergies Home Medications Medication Instructions Recorded Confirmed Type hydrocodone 5 mg-acetaminophen 325 See Rx Instructions PO Q6H PRN 06/08/18 03/14/19 History mg tablet naproxen 250 mg tablet 250 mg PO .COMPLEX PRN tab 06/08/18 03/14/19 History tiotropium bromide 18 mcg capsule 1 cap INHALATION QDAY 06/08/18 03/14/19 History with inhalation device albuterol sulfate 90 mcg/actuation 2 puff INHALATION Q4H PRN #18 g 06/10/18 03/14/19 Rx aerosol inhaler tiotropium bromide 18 mcg capsule 1 cap INHALATION QDAY #90 puff 06/30/18 03/14/19 Rx with inhalation device albuterol sulfate 90 mcg/actuation 2 puff INHALATION Q4H PRN #54 g 12/14/18 03/14/19 Rx aerosol inhaler fluticasone propionate-salmeterol 2 puff INHALATION BID #36 g 12/14/18 03/14/19 Rx 230 mcg-21 mcg/actuation HFA inhaler ipratropium-albuterol 0.5 mg-3 3 ml INHALATION Q6H PRN #360 ml 12/14/18 03/14/19 Rx mg(2.5 mg base)/3 mL nebulization soln Allergies Allergy/AdvReac Type Severity Reaction Status Date / Time Varenicline AdvReac Mild Agitated Verified 03/14/19 07:55 Exam - Vital Signs Vital signs: Temp Pulse Resp BP Pulse Ox 96.8 F L 79 16 108/73 96 03/14/19 14:15 03/14/19 14:15 03/14/19 14:33 03/14/19 14:01 03/14/19 14:33 - General Appearance General appearance: sedated on ventilator EENT: mucous membranes moist Neck: no JVD Respiratory: clear Cardiology: no edema Integumentary: warm and dry Musculoskeletal: no deformities Results - Lab Results 03/14/19 08:00 03/14/19 01:05 Most recent lab results Calcium 8.8 mg/dl (8.6-10.4) 03/14/19 01:05 Assessment and Plan (1) Hyperkalemia Armando Amos is a 63-year-old male with chronic obstructive pulmonary disease presented to ED for progressive upper abdominal pain for about 2 weeks. Work-up was consistent with retroperitoneal hemorrhage on CT. Surgery was consulted. The patient was admitted. This morning, the patient had acute hypotension and anemia requiring 4 units PRBC and vasopressors. The patient had emergency exploratory laparotomy which showed major splenic rupture with separation of capsule and free massive hemoperitoneum and required with splenectomy. Postop labs were significant for hyperkalemia. He continues to have urine output. Acute postop hyperkalemia associated with intraabdominal hemorrhage and transfusions, suspected acute kidney injury, nonoliguric at this point. Recommendations: Medical management with IV fluids and Furosemide in progress. Agree with Kayexalate retention enema recommended by surgery. Acute hemodialysis if above measures fail. Status: Acute Priority: High
[2019-03-14] MEDS: LORazepam 2 MG/ML VIAL IV PRN (15:15)
[2019-03-14] MEDS: 0.9 % SODIUM CHLORIDE 10 ML SYRINGE IV SCH ×3 (15:37→21:30)
[2019-03-14 17:00] LABS: POC Blood Urea Nitrogen 14 mg/dl (8-23); POC CO2 24 mmol/L (22-30); POC Calcium, Ionized 1.04 mmol/L (1.16-1.32); POC Chloride 105 mmol/L (96-108); POC Creatinine 0.8 mg/dl (0.7-1.2); POC Glucose, Random 138 mg/dL (70-105); POC Potassium 5.2 mmol/L (3.3-5.1); POC Sodium 136 mmol/L (133-145)
[2019-03-14] MEDS: INSULIN LISPRO 1 UNIT/0.01 ML UNIT SQ SCH (19:21)
[2019-03-14] MEDS ORDERED: DEXTROSE 31 GM ORAL.SUSP PO PRN (19:47)
[2019-03-14] MEDS ORDERED: DEXTROSE 50% 50 ML VIAL IV PRN (19:47)
[2019-03-14] MEDS ORDERED: 0.9 % SODIUM CHLORIDE 10 ML SYRINGE IV SCH (21:00)
[2019-03-14 21:06] LABS: Appearance,Urine CLEAR; Bilirubin,Urine NEG (NEG); Color,Urine YELLOW; Culture Indicated,Urine NO; Glucose,Urine (UA) NEGATIVE (NEG); Ketones,Urine 5/TR mg/dL (NEG); Leukocyte Esterase,Urine NEG /uL (NEG); Nitrate,Urine NEG (NEG); Protein,Urine NEG (NEG); Specific Gravity,Urine 1.036 (1.000-1.035); Urine Blood NEG mg/dL (<0.03); Urobilinogen,Urine NEG (NEG)
[2019-03-14 21:48] LABS: Hematocrit 36.1 % (41.0-55.0); Hemoglobin 12.3 g/dL (13.5-16.5)
[2019-03-14] MEDS: CHLORHEXIDINE GLUCONATE 1 ML ORAL.SOL SWABMOUTH SCH (22:21)
[2019-03-14] MEDS: FAMOTIDINE/PF 20 MG/2 ML VIAL IV SCH (22:26)
[2019-03-14] MEDS ORDERED: FAMOTIDINE/PF 20 MG/2 ML VIAL IV ONE (22:27)
[2019-03-15] MEDS: METOCLOPRAMIDE 10 MG/2 ML VIAL IV SCH ×4 (00:54→17:35)
[2019-03-15] MEDS: INSULIN LISPRO 1 UNIT/0.01 ML UNIT SQ SCH ×4 (00:54→17:37)
[2019-03-15] MEDS: PIPERACILLIN SODIUM/TAZOBACTAM 3.375 GM in DEXTROSE 5% IN WATER 50 ML IV SCH ×4 (00:54→17:35)
[2019-03-15] MEDS: 0.9 % SODIUM CHLORIDE 1,000 ML IV SCH ×3 (01:30→20:20)
[2019-03-15 04:48] LABS: Basophils # (Auto) 0 K/mcL (0.0-0.3); Basophils % (Auto) 0.1 % (0.0-2.0); Eosinophils # (Auto) 0 K/mcL (0.0-0.7); Eosinophils % (Auto) 0 % (0.0-7.0); Granulocytes % (Auto) 79.4 % (38.0-78.0); Hematocrit 32.7 % (41.0-55.0); Hemoglobin 11.1 g/dL (13.5-16.5); Lymphocytes # (Auto) 1.4 K/mcL (1.5-4.8); Lymphocytes % (Auto) 9.8 % (15.5-49.0); Mean Cell Volume 89.1 fL (80.0-100.0); Mean Platelet Volume 8.1 fL (7.4-10.4); Monocytes # (Auto) 1.5 K/mcL (0.1-0.9); Monocytes % (Auto) 10.7 % (1.0-12.0); Platelet Count 245 K/mcL (140-440); RBC 3.67 M/mcL (4.50-5.90); Red Cell Distribution Width 14.8 % (11.5-14.5); WBC 14.2 K/mcL (4.5-11.0)
[2019-03-15] MEDS: ACETAMINOPHEN 1,000 MG/100 ML BOTTLE IV SCH (04:58)
[2019-03-15] MEDS: HYDROmorphone 2 MG/ML VIAL IV PRN ×2 (05:15→16:57)
[2019-03-15 05:21] LABS: ALT/SGPT 22 U/l (0-40); AST/SGOT 21 U/l (0-37); Albumin 2.7 gm/dL (3.2-5.2); Albumin/Globulin Ratio 1.2 (1.0-2.3); Alkaline Phosphatase 36 U/L (39-117); Bilirubin,Direct < 0.2 mg/dL (0.0-0.3); Bilirubin,Total 0.4 mg/dL (0.0-1.0); Blood Urea Nitrogen 15 mg/dl (8-23); Calcium 7.5 mg/dl (8.6-10.4); Carbon Dioxide 24 mmol/L (22-30); Chloride 106 mmol/L (96-108); Globulin 2.2 gm/dL (2.2-3.7); Glomerular Filtration Rate 96; Glucose 131 mg/dL (70-105); Lactate Dehydrogenase 153 U/L (94-250); Phosphorous 3.7 mg/dL (2.7-4.5); Triglycerides 118 mg/dl (<150); Uric Acid 4.6 mg/dL (2.5-8.0)
[2019-03-15] MEDS: 0.9 % SODIUM CHLORIDE 10 ML SYRINGE IV SCH ×6 (06:09→21:58)
--- NOTE | 2019-03-15 06:13 | Nephrology Progress Note ---
Subjective Patient information: Note initiated : 03/15/19 at 6:11 am Patient: Armando Amos 63 y/o M admitted on 03/14/19 for chest pain. Chief Complaint: Sedated on mechanical ventilator Pertinent ROS: Unavailable due to mechanical ventilator Objective - Vital Signs Vital signs: Vital Signs Temp Pulse Resp Resp Resp BP BP 03/15/19 03:01 99.0 F 80 17 117/81 03/15/19 03:00 99.0 F 81 18 20 03/15/19 02:01 99.1 F H 87 18 03/15/19 02:00 99.1 F H 89 18 123/83 03/15/19 01:01 99.2 F H 81 19 03/15/19 01:00 99.2 F H 82 15 19 117/78 03/15/19 00:34 03/15/19 00:02 99.4 F H 84 0 L 03/15/19 00:01 99.4 F H 87 18 111/83 03/15/19 00:00 99.4 F H 85 03/14/19 23:18 99.4 F H 03/14/19 23:10 18 03/14/19 23:02 99.4 F H 84 17 03/14/19 23:01 99.4 F H 87 18 122/75 03/14/19 23:00 99.4 F H 85 18 03/14/19 22:45 99.4 F H 88 19 03/14/19 22:33 99.3 F H 03/14/19 22:30 99.3 F H 91 H 19 03/14/19 22:15 99.3 F H 94 H 19 03/14/19 22:02 99.3 F H 88 19 03/14/19 22:01 99.3 F H 87 19 118/75 03/14/19 22:00 99.3 F H 86 19 03/14/19 21:45 99.2 F H 83 17 03/14/19 21:30 99.2 F H 85 18 03/14/19 21:15 99.1 F H 82 17 03/14/19 21:09 18 03/14/19 21:01 99.1 F H 86 18 118/80 03/14/19 21:00 99.1 F H 83 19 03/14/19 20:45 99.0 F 85 19 03/14/19 20:30 99.0 F 81 18 03/14/19 20:15 99.0 F 83 17 03/14/19 20:01 98.9 F 87 19 124/81 03/14/19 20:00 98.9 F 81 19 03/14/19 19:45 98.9 F 86 18 03/14/19 19:44 18 03/14/19 19:30 98.9 F 86 18 03/14/19 19:26 18 03/14/19 19:15 98.8 F 87 17 03/14/19 19:01 98.7 F 88 18 133/98 03/14/19 19:00 98.7 F 88 18 03/14/19 18:45 98.7 F 86 19 03/14/19 18:30 98.7 F 86 19 03/14/19 18:15 98.6 F 86 19 03/14/19 18:02 98.6 F 87 19 03/14/19 18:01 98.6 F 87 20 115/83 03/14/19 18:00 98.6 F 87 19 03/14/19 17:45 98.5 F 87 18 03/14/19 17:30 98.5 F 87 18 03/14/19 17:15 98.5 F 90 18 03/14/19 17:02 98.4 F 89 16 03/14/19 17:01 98.4 F 89 16 17 112/88 03/14/19 17:00 98.4 F 92 H 17 03/14/19 16:45 98.4 F 91 H 16 03/14/19 16:30 98.3 F 91 H 16 03/14/19 16:15 98.1 F 92 H 13 03/14/19 16:01 97.9 F 95 H 16 123/91 03/14/19 16:00 97.9 F 92 H 18 126/79 03/14/19 15:45 97.6 F 90 16 03/14/19 15:30 98.0 F 84 16 127/76 03/14/19 15:15 97.9 F 98 H 18 03/14/19 15:01 97.7 F 84 16 118/86 03/14/19 15:00 97.7 F 84 16 106/64 03/14/19 14:45 97.4 F 80 16 109/66 03/14/19 14:33 16 03/14/19 14:32 97.2 F 80 16 97/70 03/14/19 14:30 97.2 F 79 16 88/55 03/14/19 14:27 97.1 F 79 16 95/76 03/14/19 14:20 03/14/19 14:15 96.8 F L 79 16 99/58 03/14/19 14:01 96.4 F L 73 16 108/73 03/14/19 14:00 96.4 F L 73 16 100/57 03/14/19 13:55 96.3 F L 74 16 99/75 03/14/19 13:45 96.2 F L 77 16 91/57 03/14/19 13:40 96.1 F L 78 16 03/14/19 13:39 96.1 F L 79 16 105/77 03/14/19 13:30 96.0 F L 77 16 100/61 03/14/19 13:15 95.7 F L 77 16 108/66 03/14/19 13:00 95.3 F L 77 16 111/68 03/14/19 12:48 16 03/14/19 12:45 95.1 F L 78 15 122/72 03/14/19 12:30 94.8 F L 80 15 121/74 03/14/19 12:15 94.3 F L 80 15 120/74 03/14/19 12:00 77 15 119/72 03/14/19 11:45 119/65 03/14/19 11:30 114/67 03/14/19 11:15 109/65 03/14/19 11:00 74 14 15 111/60 03/14/19 10:59 73 12 03/14/19 08:31 96 H 17 154/129 03/14/19 08:16 97 H 15 157/84 03/14/19 08:11 90 10 L 122/80 03/14/19 08:10 03/14/19 08:04 91 H 15 03/14/19 08:03 97.3 F 95 H 18 128/100 03/14/19 08:00 94 H 19 03/14/19 07:47 101 H 22 85/74 03/14/19 07:41 97 H 18 120/83 03/14/19 07:30 101 H 17 87/62 03/14/19 07:26 109 H 17 89/69 03/14/19 07:18 103 H 23 H 67/40 03/14/19 07:01 106 H 13 93/68 03/14/19 07:00 108 H 16 03/14/19 06:46 97 H 22 94/82 03/14/19 06:34 95 H 23 H 03/14/19 06:33 95 H 23 H 85/58 03/14/19 06:17 103 H 38 H 103/71 03/14/19 06:15 105 H 28 H 83/73 Pulse Ox Pulse Ox Pulse Ox 03/15/19 03:01 96 03/15/19 03:00 95 95 03/15/19 02:01 95 03/15/19 02:00 95 03/15/19 01:01 95 03/15/19 01:00 95 95 03/15/19 00:34 95 03/15/19 00:02 96 03/15/19 00:01 96 03/15/19 00:00 96 03/14/19 23:18 03/14/19 23:10 96 03/14/19 23:02 96 03/14/19 23:01 96 03/14/19 23:00 95 03/14/19 22:45 95 03/14/19 22:33 03/14/19 22:30 93 03/14/19 22:15 93 03/14/19 22:02 94 03/14/19 22:01 95 03/14/19 22:00 95 03/14/19 21:45 96 03/14/19 21:30 96 03/14/19 21:15 95 03/14/19 21:09 98 03/14/19 21:01 96 03/14/19 21:00 96 03/14/19 20:45 95 03/14/19 20:30 95 03/14/19 20:15 95 03/14/19 20:01 95 03/14/19 20:00 95 03/14/19 19:45 95 03/14/19 19:44 95 95 03/14/19 19:30 95 03/14/19 19:26 95 03/14/19 19:15 96 03/14/19 19:01 97 03/14/19 19:00 97 03/14/19 18:45 97 03/14/19 18:30 97 03/14/19 18:15 97 03/14/19 18:02 97 03/14/19 18:01 98 03/14/19 18:00 98 03/14/19 17:45 97 03/14/19 17:30 96 03/14/19 17:15 95 03/14/19 17:02 96 03/14/19 17:01 95 95 03/14/19 17:00 95 03/14/19 16:45 95 03/14/19 16:30 95 03/14/19 16:15 95 03/14/19 16:01 95 03/14/19 16:00 95 03/14/19 15:45 94 03/14/19 15:30 100 03/14/19 15:15 90 03/14/19 15:01 95 03/14/19 15:00 95 03/14/19 14:45 96 03/14/19 14:33 96 03/14/19 14:32 100 03/14/19 14:30 100 03/14/19 14:27 99 03/14/19 14:20 100 03/14/19 14:15 100 03/14/19 14:01 100 03/14/19 14:00 100 03/14/19 13:55 100 03/14/19 13:45 100 03/14/19 13:40 100 03/14/19 13:39 100 03/14/19 13:30 100 03/14/19 13:15 100 03/14/19 13:00 100 03/14/19 12:48 100 03/14/19 12:45 100 03/14/19 12:30 100 03/14/19 12:15 100 03/14/19 12:00 100 03/14/19 11:45 03/14/19 11:30 03/14/19 11:15 03/14/19 11:00 100 100 03/14/19 10:59 100 03/14/19 08:31 99 03/14/19 08:16 96 03/14/19 08:11 100 03/14/19 08:10 97 03/14/19 08:04 99 03/14/19 08:03 96 03/14/19 08:00 93 03/14/19 07:47 100 03/14/19 07:41 97 03/14/19 07:30 97 03/14/19 07:26 89 L 03/14/19 07:18 100 03/14/19 07:01 97 03/14/19 07:00 96 03/14/19 06:46 91 03/14/19 06:34 99 03/14/19 06:33 99 03/14/19 06:17 91 03/14/19 06:15 90 Intake and Output 03/14/19 03/15/19 03/15/19 21:59 05:59 13:59 Intake Total 1863 1250 Output Total 1370 400 Balance 493 850 Intake: IV 1863 1250 Sodium Chloride 0.9% 1,000 ml @ 1000 1000 75 mls/hr IV .[id number] [facility] Rx#: [id number] Sodium Chloride 0.9% 500 ml @ 500 Wide Open IV BOLUS ONE Rx#: [id number] Levophed 16 mg In Sodium 52 Chloride 0.9% 234 ml @ 10 MCG/ MIN 9.375 mls/hr IV Q24H [facility] Rx #:[id number] Zosyn 3.375 gm In Dextrose 5% 100 50 in Water 50 ml @ 100 mls/hr IV Q6H [facility] Rx#:[id number] fentaNYL 2,500 MCG In Sodium 11 Chloride 0.9% 200 ml @ 25 MCG/ HR 2.5 mls/hr IV Q24H [facility] Rx#: [id number] Tube Feeding 0 Output: Gastric Drainage 30 Right Nare NG/OG 30 Drainage 180 Left Abdomen MONIKA Drain 90 Left Lower [place]IK[place] Drain 90 Urine Catheter Amount 1160 400 Other: Urine Appearance Clear Clear Uretheral (Jessica) Clear Clear Urine Color Dark Yellow Dark Yellow Uretheral (Jessica) Dark Yellow Dark Yellow Urine Odor Normal Normal Uretheral (Jessica) Normal Weight 217 lb 12.8 oz Intake & Output: Intake & Output 03/14/19 03/15/19 03/15/19 21:59 05:59 13:59 Intake Total 1863 1250 Output Total 1370 400 Balance 493 850 Weight 217 lb 12.8 oz Intake: IV 1863 1250 Sodium Chloride 0.9% 1,000 ml @ 1000 1000 75 mls/hr IV .[id number] [facility]EN[facility] Rx#: [id number] Sodium Chloride 0.9% 500 ml @ 500 Wide Open IV [facility] ONE Rx#: [id number] Levophed 16 mg In Sodium 52 Chloride 0.9% 234 ml @ 10 MCG/ MIN 9.375 mls/hr IV Q24H [facility] Rx #:[id number] Zosyn 3.375 gm In Dextrose 5% 100 50 in Water 50 ml @ 100 mls/hr IV Q6H [facility] Rx#:[id number] fentaNYL 2,500 MCG In Sodium 11 Chloride 0.9% 200 ml @ 25 MCG/ HR 2.5 mls/hr IV Q24H [facility] Rx#: [id number] Tube Feeding 0 Output: Gastric Drainage 30 Right Nare NG/OG 30 Drainage 180 Left Abdomen MONIKA Drain 90 Left Lower [place] Drain 90 Urine Catheter Amount 1160 400 Other: Urine Appearance Clear Clear Uretheral (Jessica) Clear Clear Urine Color Dark Yellow Dark Yellow Uretheral (Jessica) Dark Yellow Dark Yellow Urine Odor Normal Normal Uretheral (Jessica) Normal - General Appearance General appearance: sedated on ventilator EENT: mucous membranes moist Respiratory: clear Cardiology: no edema Integumentary: warm and dry - Lab 03/15/19 04:00 03/15/19 04:00 Most recent lab results Calcium 7.5 mg/dl (8.6-10.4) L 03/15/19 04:00 Phosphorus 3.7 mg/dL (2.7-4.5) 03/15/19 04:00 Magnesium 2.3 mg/dL (1.6-2.5) 03/15/19 04:00 Assessment and Plan (1) Hyperkalemia Armando Amos is a 63-year-old male with chronic obstructive pulmonary disease presented to ED for progressive upper abdominal pain for about 2 weeks. Work-up was consistent with retroperitoneal hemorrhage on CT. Surgery was consulted. The patient was admitted. This morning, the patient had acute hypotension and anemia requiring 4 units PRBC and vasopressors. The patient had emergency exploratory laparotomy which showed major splenic rupture with separation of capsule and free massive hemoperitoneum and required with splenectomy. Postop labs were significant for hyperkalemia. He continues to have urine output. Acute postop hyperkalemia associated with intraabdominal hemorrhage and transfusions, suspected acute kidney injury, resolved. Nephrology will sign off. Status: Resolved Priority: High
--- NOTE | 2019-03-15 06:47 | XRay Report ---
INDICATION: Postsurgical follow-up. Patient is on ventilator. TECHNIQUE: AP chest x-ray,portable semiupright COMPARISON: Previous examination dated 03/14/2019 FINDINGS:No change in position of right central venous catheter, endotracheal tube, esophagogastric tube. No acute or focal pulmonary parenchymal infiltrate. No parenchymal mass. Heart size and vascularity are within normal limits. No pulmonary edema or pulmonary congestion IMPRESSION: Negative AP chest x-ray. No acute abnormality Interpreted and Authenticated by: Ace Ferreira 03/15/19
[2019-03-15] MEDS ORDERED: FUROSEMIDE 20 MG/2 ML VIAL IV ONE ×3 (08:00→17:38)
[2019-03-15] MEDS ORDERED: 0.9 % SODIUM CHLORIDE 250 ML IV SCH (08:15)
[2019-03-15] MEDS: FAMOTIDINE/PF 20 MG/2 ML VIAL IV SCH ×2 (09:08→21:56)
[2019-03-15] MEDS: MIDAZOLAM PF 50 MG in 0.9 % SODIUM CHLORIDE 90 ML IV SCH ×2 (09:08→11:47)
[2019-03-15] MEDS: CHLORHEXIDINE GLUCONATE 1 ML ORAL.SOL SWABMOUTH SCH ×2 (09:08→21:56)
[2019-03-15] MEDS: IPRATROPIUM/ALBUTEROL 3 ML AMPUL.NEB NEB PRN ×2 (11:30→19:53)
--- NOTE | 2019-03-15 11:40 | Surgical Pathology Report ---
HISTOLOGY SPECIMEN MICROSCOPIC DIAGNOSIS SPLEEN, SPLENECTOMY: -- DISRUPTED SPLEEN WITH PERISPLENIC HEMORRHAGE AND BLOOD CLOT, CONSISTENT WITH RUPTURE. (DMT:faizan) PROCEDURAL IMPRESSION Ruptured spleen. GROSS DESCRIPTION Received in formalin labeled spleen, is a 102 gram, 10.7 x 7.8 x 2.1 cm spleen. It is purple-galeano with red-brown attached blood clot. At one edge there is a 1.8 cm possibly disrupted area. Cut surfaces show purple parenchyma. [employer] sections are submitted - two cassettes. (SCB:faizan) Electronically Signed by: Sukhi Acuna M.D.
[2019-03-15] MEDS: fentaNYL 2,500 MCG in 0.9 % SODIUM CHLORIDE 200 ML IV SCH (11:47)
[2019-03-15] MEDS: methylPREDNISolone SOD SUCC 125 MG/2 ML VIAL IV SCH ×2 (12:27→21:57)
--- NOTE | 2019-03-15 12:45 | General Surgery Progress Note ---
Subjective Patient reports: other (patient remains ventilated and sedated) Narrative: Note initiated : 03/15/19 at 12:42 pm Service Date, if different from initiated Date: [] Patient: Armando Amos 63 y/o M admitted on 03/14/19 for chest pain. Chief Complaint: [] Objective Temp Pulse Resp BP Pulse Ox 99.0 F 76 16 134/86 95 03/15/19 08:01 03/15/19 11:35 03/15/19 11:35 03/15/19 08:01 03/15/19 11:00 - Additional Data Intake & Output - Last 24 hours: Intake & Output 03/13/19 03/14/19 03/15/19 03/16/19 05:59 05:59 05:59 05:59 Intake Total 1999 6263 440 Output Total 3580 590 Balance 1984 2759 -150 Weight 210 lb 217 lb 12.8 oz - General physical appearance no distress, no pain, other (patient is ventilated and sedated) - Eyes PERRL, normal ocular movement - ENT normal pinna, normal nares, normal mucosa, no hearing loss, no congestion - Neck no masses, no bruits, trachea midline, no lymphadenopathy, no venous distension - Respiratory normal expansion, other (good clear breath sounds bilaterally) - Cardiovascular Cardiovascular exam: Present: normal rate and rhythm, RRR, +S1, +S2. Absent: JVD, tachycardia - Abdomen tender (incision looks good; good active bowel sounds; moderate amount of bloody drainage) - Integumentary no rash, no growths, no abnormal pigmentation - Labs 03/15/19 04:00 03/15/19 04:00 Diabetes panel 03/15/19 Range/Units 04:00 Sodium 139 (133-145) mmol/L Potassium 4.3 (3.3-5.1) mmol/L Chloride 106 (96-108) mmol/L Carbon Dioxide 24 (22-30) mmol/L BUN 15 (8-23) mg/dl Creatinine 0.8 (0.7-1.2) mg/dl Glucose 131 H (70-105) mg/dL Calcium 7.5 L (8.6-10.4) mg/dl AST 21 (0-37) U/l ALT 22 (0-40) U/l Alkaline Phosphatase 36 L (39-117) U/L Total Protein 4.9 L (5.9-8.4) gm/dL Albumin 2.7 L (3.2-5.2) gm/dL Triglycerides 118 (<150) mg/dl Calcium panel 03/15/19 Range/Units 04:00 Calcium 7.5 L (8.6-10.4) mg/dl Phosphorus 3.7 (2.7-4.5) mg/dL Albumin 2.7 L (3.2-5.2) gm/dL Pituitary panel 03/15/19 Range/Units 04:00 Sodium 139 (133-145) mmol/L Potassium 4.3 (3.3-5.1) mmol/L Chloride 106 (96-108) mmol/L Carbon Dioxide 24 (22-30) mmol/L BUN 15 (8-23) mg/dl Creatinine 0.8 (0.7-1.2) mg/dl Glucose 131 H (70-105) mg/dL Calcium 7.5 L (8.6-10.4) mg/dl Adrenal panel 03/15/19 Range/Units 04:00 Sodium 139 (133-145) mmol/L Potassium 4.3 (3.3-5.1) mmol/L Chloride 106 (96-108) mmol/L Carbon Dioxide 24 (22-30) mmol/L BUN 15 (8-23) mg/dl Creatinine 0.8 (0.7-1.2) mg/dl Glucose 131 H (70-105) mg/dL Calcium 7.5 L (8.6-10.4) mg/dl Total Bilirubin 0.4 (0.0-1.0) mg/dL AST 21 (0-37) U/l ALT 22 (0-40) U/l Alkaline Phosphatase 36 L (39-117) U/L Total Protein 4.9 L (5.9-8.4) gm/dL Albumin 2.7 L (3.2-5.2) gm/dL Assessment and Plan (1) Nontraumatic splenic rupture Status: Acute Assessment and plan: Patient remains clinically stable. Hemoglobin is stable No evidence of ongoing bleeding Current Visit: Yes (2) COPD (chronic obstructive pulmonary disease) Status: Chronic Current Visit: No (3) Obstructive sleep apnea Status: Chronic Current Visit: No - Time Spent With Patient Total time spent is greater than 50% in coordination of care (as documented) at patient's floor/unit and/or counseling patient:
--- NOTE | 2019-03-15 15:02 | Internal Med Progress Note ---
Medical - PN: Subj Patient information: Note initiated : 03/15/19 at 3:02 pm Service Date, if different from initiated Date: [] Patient: Armando Amos a 63 y/o M admitted on 03/14/19 for chest pain. Chief Complaint: [] Interval history: Mr. Amos is a 63 year old M with a known history of COPD managed by pulmonology Dr. Bell. Patient presents to the ER with progressive upper abdominal pain that started roughly 2 weeks prior to presentation that has gradually intensified. He denies abdominal trauma or nausea or emesis. He further denies hematemesis or bloody stool. He denies weight loss. He denies pain worsening with respiration however pain is made worse by eating. Initial work-up in the ER was consistent with retroperitoneal hemorrhage on CT. Surgery was consulted and recommended hospitalist service to admit for monitoring and observation. Patient initial hemoglobin was 12.4 with systolics around mid 90s.. Patient received crystalloids. Initial white count 14.3. INR 1 creatinine 0.8. Hospitalist service was subsequently consulted At the time of evaluation patient is slightly anxious. Systolics around low 90s. No tachycardia or diaphoresis. Patient able to answer most of the questio ns. He complains of abdominal discomfort with pain 6 out of 10 to 8 out of 10 epigastric area relating to the flank and back. He denies recent trauma, URI symptoms, prior history of similar episodes or hospitalization or peptic ulcer disease. He is mildly short of breath but consistent with his baseline COPD. 03/14 6.30 AM- Responded to nurse call early this morning with dropping systolics. Hematocrit down to 24 from 35. Systolics down to mid 70s. Start aggressive crystalloid resuscitation/massive transfusion protocol with 4 units PRBC/vasopressors. Surgery consulted for emergent surgical intervention. 03/14-2 PM Patient now postop expiratory restart me. Status post 6 units PRBC transfusion. Currently on mechanical ventilation. On pressors to maintain map at goal. ICU sedation for mechanical ventilation on fentanyl/Versed. Potassium at 6. Initiate hyperkalemia protocol. Continue mechanical ventilation per protocol. Continue diuresis/crystalloids 03/15-patient doing well. On mechanical ventilation with ICU sedation on Versed/fentanyl. MONIKA drain output 90 cc last shift. Urine output greater than 30 cc an hour. Map at goal. Off pressors. Anticipate extubation in 24 hours. No overnight events, fever. White count 14,000. Hemoglobin stable around 11.1. Potassium trended down from 6-4.3. Eyes no even. Will start diuresing later in the evening in anticipation of extubation. Remains in ileus. Family at bedside. Discussed plan of care with family and patient. - Constitutional Vitals: Vital Signs Temp Pulse Resp BP Pulse Ox 98.4 F 76 16 108/70 95 03/15/19 14:00 03/15/19 14:00 03/15/19 14:20 03/15/19 13:01 03/15/19 14:20 Period Temp Pulse Resp BP Sys/Best Pulse Ox Last 24 Hr 97.6 F-99.4 F 76-98 0-20 96-149/65-98 90-100 Intake and Output 03/15/19 03/15/19 03/15/19 05:59 13:59 21:59 Intake Total 1250 963 Output Total 480 590 Balance 770 373 Weight 217 lb 12.8 oz Patient Weight 03/16/19 05:59 Weight 217 lb 12.8 oz Intake & Output: Intake & Output 03/15/19 03/15/19 03/15/19 05:59 13:59 21:59 Intake Total 1250 963 Output Total 480 590 Balance 770 373 Weight 217 lb 12.8 oz Intake: IV 1250 963 Sodium Chloride 0.9% 1,000 ml @ 1000 473 75 mls/hr IV .[id number] JENNY Rx#: [id number] Sodium Chloride 0.9% 250 ml @ 231 20 mls/hr IV .[id number] JENNY Rx#: [id number] Versed 50 mg In Sodium Chloride 84 0.9% 90 ml @ 0.02 MG/KG/HR 3. 81 mls/hr IV Q24H JENNY Rx#: [id number] Zosyn 3.375 gm In Dextrose 5% 50 100 in Water 50 ml @ 100 mls/hr IV Q6H JENNY Rx#:[id number] fentaNYL 2,500 MCG In Sodium 75 Chloride 0.9% 200 ml @ 25 MCG/ HR 2.5 mls/hr IV Q24H JENNY Rx#: [id number] Tube Feeding 0 Output: Gastric Drainage 0 Right Nare NG/OG 0 Drainage 90 Left Abdomen MONIKA Drain 90 Urine Catheter Amount 480 500 Other: Urine Appearance Clear Clear Uretheral (Jessica) Clear Urine Color Dark Yellow Pale Uretheral (Jessica) Dark Yellow Urine Odor Normal Normal Stool Size Small Stool Color Brown Stool Consistency Loose # of times incontinent of 1 Bowels General appearance: no acute distress Exam: Critically ill on mechanical ventilation Jessica is draining clear urine A line in place No telemetry events Nondistended abdomen MONIKA drain 80 cc in 8 hours Medical - PN: Obj Da - Labs CBC & Chem 7: 03/15/19 04:00 03/15/19 04:00 Labs: Abnormal Lab Results 03/15/19 03/15/19 03/14/19 04:00 04:00 21:02 WBC 14.2 H RBC 3.67 L Hgb 11.1 L 12.3 L Hct 32.7 L 36.1 L POC Hct RDW 14.8 H Gran % 79.4 H Lymph % (Auto) 9.8 L Gran # 11.3 H Lymph # (Auto) 1.4 L [place] # (Auto) 1.5 H POC Potassium Chloride Glucose 131 H POC Glucose Calcium 7.5 L POC WB Ioniz Calcium Alkaline Phosphatase 36 L Total Protein 4.9 L Albumin 2.7 L Lipase Ur Specific [place] Urine Ketones Ethyl Alcohol 03/14/19 03/14/19 03/14/19 19:54 16:42 13:06 WBC RBC Hgb Hct POC Hct 38.0 L 37.0 L RDW Gran % Lymph % (Auto) Gran # Lymph # (Auto) [place] # (Auto) POC Potassium 5.2 H 6.0 H* Chloride Glucose POC Glucose 138 H 133 H Calcium POC WB Ioniz Calcium 1.04 L 1.05 L Alkaline Phosphatase Total Protein Albumin Lipase Ur Specific [place] 1.036 H Urine Ketones 5/tr A Ethyl Alcohol 03/14/19 03/14/19 03/14/19 09:53 08:00 06:25 WBC 14.6 H RBC 2.83 L Hgb 8.5 L Hct 25.4 L POC Hct 27.0 L 24.0 L RDW Gran % 82.4 H Lymph % (Auto) 12.9 L Gran # 12.0 H Lymph # (Auto) [place] # (Auto) POC Potassium 5.6 H 5.9 H* Chloride Glucose POC Glucose 151 H 172 H Calcium POC WB Ioniz Calcium 1.13 L 1.08 L Alkaline Phosphatase Total Protein Albumin Lipase Ur Specific [place] Urine Ketones Ethyl Alcohol 03/14/19 03/14/19 03/14/19 01:30 01:05 01:05 WBC RBC Hgb Hct POC Hct 30.0 L RDW Gran % Lymph % (Auto) Gran # Lymph # (Auto) [place] # (Auto) POC Potassium Chloride 95 L Glucose 151 H POC Glucose 126 H Calcium POC WB Ioniz Calcium 1.07 L Alkaline Phosphatase Total Protein Albumin Lipase 213 H Ur Specific [place] Urine Ketones Ethyl Alcohol 0.013 H 03/14/19 01:05 WBC 14.3 H RBC 4.04 L Hgb 12.2 L Hct 35.7 L POC Hct RDW Gran % Lymph % (Auto) Gran # 10.7 H Lymph # (Auto) [place] # (Auto) 1.0 H POC Potassium Chloride Glucose POC Glucose Calcium POC WB Ioniz Calcium Alkaline Phosphatase Total Protein Albumin Lipase Ur Specific [place] Urine Ketones Ethyl Alcohol Meds: Medications Albuterol/Ipratropium (Duoneb) 3 ml NEB Q4HP PRN PRN Reason: Shortness Of Breath Last Admin: 03/15/19 11:30 Dose: 3 ml Documented by: Budesonide (Pulmicort) 0.5 mg NEB Q12 [facility] Chlorhexidine Gluconate (Peridex) 15 ml SWABMOUTH BID [facility] Last Admin: 03/15/19 09:08 Dose: 15 ml Documented by: Dextrose (Dextrose 50%) 0 ml IV UD PRN PRN Reason: Hypoglycemia Diagnostic Test (Pha) (Accu-Chek) 1 each FS Q6 [facility] Last Admin: 03/15/19 12:23 Dose: 1 each Documented by: Famotidine (Pepcid) 20 mg IV Q12 [facility] Last Admin: 03/15/19 09:08 Dose: 20 mg Documented by: Glucose (Insta-Glucose) 15 gm PO PRN PRN PRN Reason: Hypoglycemia Hydromorphone HCl (Dilaudid) 1 mg IV Q2HP PRN PRN Reason: PAIN LEVEL > 6 Heparin Sodium/Sodium Chloride (Heparin/Ns) 500 mls @ 0 mls/hr IV .Q0M [facility]; Protocol Norepinephrine Bitartrate 16 (mg/ Sodium Chloride) 250 mls @ 9.375 mls/hr IV Q24H [facility]; Protocol Last Titration: 03/14/19 15:30 Dose: 5 mcg/min, 4.688 mls/hr Documented by: Piperacillin Sod/Tazobactam (Sod 3.375 gm/ Dextrose) 50 mls @ 100 mls/hr IV Q6H JENNY; Protocol Last Infusion: 03/15/19 13:27 Dose: Infused Documented by: Midazolam HCl 50 mg/ Sodium (Chloride) 100 mls @ 3.81 mls/hr IV Q24H JENNY; Protocol Last Admin: 03/15/19 11:47 Dose: Not Given Documented by: Fentanyl 2,500 mcg/ Sodium (Chloride) 250 mls @ 2.5 mls/hr IV Q24H JENNY; Protocol Last Admin: 03/15/19 11:47 Dose: Not Given Documented by: Sodium Chloride (Sodium Chloride 0.9%) 1,000 mls @ 20 mls/hr IV .Q24H JENNY Last Admin: 03/15/19 09:09 Dose: Not Given Documented by: Sodium Chloride (Sodium Chloride 0.9%) 250 mls @ 20 mls/hr IV .[id number] JENNY Last Admin: 03/15/19 09:09 Dose: 20 mls/hr Documented by: Insulin Human Lispro (Humalog) 0 unit SQ Q6 JENNY; Protocol Last Admin: 03/15/19 12:26 Dose: Not Given Documented by: Lorazepam (Ativan) 1 mg IV Q6HP PRN PRN Reason: ANXIETY/SEDATION Last Admin: 03/14/19 15:15 Dose: 1 mg Documented by: Methylprednisolone Sodium Succinate (Solu-Medrol) 62.5 mg IV Q12 JENNY Last Admin: 03/15/19 12:27 Dose: 62.5 mg Documented by: Metoclopramide HCl (Reglan) 10 mg IV Q6 JENNY Last Admin: 03/15/19 12:27 Dose: 10 mg Documented by: Nicotine (Nicoderm) 21 mg TOPICAL DAILY@1000 JENNY Promethazine HCl (Phenergan) 12.5 mg IV Q4HP PRN PRN Reason: Nausea And Vomiting Sodium Chloride (Saline Flush) 10 ml IV UD PRN PRN Reason: Bleeding Sodium Chloride (Saline Flush) 10 ml IV Q12 JENNY Last Admin: 03/15/19 09:11 Dose: 10 ml Documented by: Sodium Chloride (Saline Flush) 10 ml IV Q8 JENNY Last Admin: 03/15/19 06:09 Dose: 10 ml Documented by: Medical - PN: A/P - Time Spent With Patient Total time spent is greater than 50% in coordination of care (as documented) at patient's floor/unit and/or counseling patient: Greater than 35 minutes (Critical care time) (1) Nontraumatic splenic rupture Status: Acute Assessment and plan: * Acute intra-abdominal/intraperitoneal hemorrhage secondary to splenic rupture. Status post expiratory laparotomy. Postop day 1. Managed per surgery recommendations. Drain output 80 to 90 cc over last 8 hours. * Hemorrhagic shock with acute blood loss anemia status post 6 unit blood transfusion. Hemoglobin stable at 11. Off pressors. Stable hemodynamics. * Mechanical ventilation for airway protection / hypoxic respiratory failure- continue ICU sedation on fentanyl/Versed. Anticipate extubation in 24 hours. Continue per protocol. * Hyperkalemia secondary to massive hemolysis-down from 6-4.3 with diuresis * History of COPD continue bronchodilators/IV steroids * Full code * Prophylaxis SCDs Plan * Continue gentle diuresis * Sedation holiday a.m. * Repeat chest imaging in a.m. * mechanical ventilation per protocol, anticipate extubation in 24 hours * Postop care per surgery * Critically ill Current Visit: Yes Procedures - Arterial Line Size (Gauge): 20
[2019-03-15] MEDS: NICOTINE 21 MG PATCH TOPICAL SCH (15:35)
[2019-03-15] MEDS: NOREPINEPHRINE BITARTRATE 16 MG in 0.9 % SODIUM CHLORIDE 234 ML IV SCH (15:44)
[2019-03-15 18:07] LABS: POC Blood Urea Nitrogen 16 mg/dl (8-23); POC CO2 28 mmol/L (22-30); POC Calcium, Ionized 1.04 mmol/L (1.16-1.32); POC Chloride 104 mmol/L (96-108); POC Creatinine 0.9 mg/dl (0.7-1.2); POC Glucose, Random 106 mg/dL (70-105); POC Potassium 4.2 mmol/L (3.3-5.1); POC Sodium 139 mmol/L (133-145)
[2019-03-15] MEDS ORDERED: 0.9 % SODIUM CHLORIDE 1,000 ML IV ONE (18:25)
[2019-03-15] MEDS ORDERED: NALOXONE HCL 0.4 MG/ML VIAL IV ONE (18:32)
[2019-03-15] MEDS ORDERED: NALOXONE HCL 0.4 MG/ML VIAL ONE (18:32)
[2019-03-15 18:37] LABS: POC Blood Urea Nitrogen 15 mg/dl (8-23); POC CO2 26 mmol/L (22-30); POC Calcium, Ionized 0.97 mmol/L (1.16-1.32); POC Chloride 105 mmol/L (96-108); POC Creatinine 0.8 mg/dl (0.7-1.2); POC Glucose, Random 120 mg/dL (70-105); POC Potassium 4.1 mmol/L (3.3-5.1); POC Sodium 139 mmol/L (133-145)
[2019-03-15] MEDS: BUDESONIDE 0.5 MG/2 ML AMPUL.NEB NEB SCH (19:53)
[2019-03-15] MEDS: DEXMEDETOMIDINE 400 MCG/100 ML BAG IV SCH (20:13)
[2019-03-15] MEDS: 0.9 % SODIUM CHLORIDE 250 ML IV SCH (20:20)
[2019-03-15 22:14] LABS: Basophils # (Auto) 0 K/mcL (0.0-0.3); Basophils % (Auto) 0.2 % (0.0-2.0); Eosinophils # (Auto) 0 K/mcL (0.0-0.7); Eosinophils % (Auto) 0.3 % (0.0-7.0); Granulocytes % (Auto) 86.1 % (38.0-78.0); Hematocrit 29.6 % (41.0-55.0); Hemoglobin 10.2 g/dL (13.5-16.5); Lymphocytes # (Auto) 0.9 K/mcL (1.5-4.8); Lymphocytes % (Auto) 6.2 % (15.5-49.0); Mean Cell Volume 86.6 fL (80.0-100.0); Mean Corpuscular HGB Conc 34.4 g/dL (31.0-36.0); Mean Platelet Volume 8.1 fL (7.4-10.4); Monocytes # (Auto) 1.1 K/mcL (0.1-0.9); Monocytes % (Auto) 7.2 % (1.0-12.0); Platelet Count 261 K/mcL (140-440); RBC 3.43 M/mcL (4.50-5.90); Red Cell Distribution Width 13.4 % (11.5-14.5); WBC 14.6 K/mcL (4.5-11.0)
[2019-03-16] MEDS: METOCLOPRAMIDE 10 MG/2 ML VIAL IV SCH ×5 (00:31→23:28)
[2019-03-16] MEDS: INSULIN LISPRO 1 UNIT/0.01 ML UNIT SQ SCH ×3 (00:32→13:52)
[2019-03-16] MEDS: PIPERACILLIN SODIUM/TAZOBACTAM 3.375 GM in DEXTROSE 5% IN WATER 50 ML IV SCH ×5 (00:32→23:27)
[2019-03-16] MEDS: HYDROmorphone 2 MG/ML VIAL IV PRN ×2 (02:29→05:06)
[2019-03-16] MEDS: fentaNYL 2,500 MCG in 0.9 % SODIUM CHLORIDE 200 ML IV SCH (03:14)
[2019-03-16] MEDS ORDERED: FUROSEMIDE 20 MG/2 ML VIAL IV ONE ×3 (03:37→09:08)
[2019-03-16] MEDS: LORazepam 2 MG/ML VIAL IV PRN (04:56)
[2019-03-16 05:31] LABS: Basophils # (Auto) 0 K/mcL (0.0-0.3); Basophils % (Auto) 0 % (0.0-2.0); Eosinophils # (Auto) 0 K/mcL (0.0-0.7); Eosinophils % (Auto) 0 % (0.0-7.0); Granulocytes % (Auto) 90.3 % (38.0-78.0); Hematocrit 30.8 % (41.0-55.0); Hemoglobin 10.6 g/dL (13.5-16.5); Lymphocytes # (Auto) 0.8 K/mcL (1.5-4.8); Lymphocytes % (Auto) 5.5 % (15.5-49.0); Mean Cell Volume 89.3 fL (80.0-100.0); Mean Corpuscular HGB Conc 34.4 g/dL (31.0-36.0); Mean Platelet Volume 7.8 fL (7.4-10.4); Monocytes # (Auto) 0.6 K/mcL (0.1-0.9); Monocytes % (Auto) 4.2 % (1.0-12.0); Platelet Count 270 K/mcL (140-440); RBC 3.45 M/mcL (4.50-5.90); Red Cell Distribution Width 14.7 % (11.5-14.5); WBC 14.6 K/mcL (4.5-11.0)
[2019-03-16] MEDS: 0.9 % SODIUM CHLORIDE 10 ML SYRINGE IV SCH ×5 (05:38→21:23)
[2019-03-16 05:41] LABS: ALT/SGPT 18 U/l (0-40); AST/SGOT 17 U/l (0-37); Albumin 2.8 gm/dL (3.2-5.2); Albumin/Globulin Ratio 1.2 (1.0-2.3); Alkaline Phosphatase 38 U/L (39-117); Bilirubin,Direct < 0.2 mg/dL (0.0-0.3); Bilirubin,Total 0.3 mg/dL (0.0-1.0); Blood Urea Nitrogen 15 mg/dl (8-23); Calcium 7.7 mg/dl (8.6-10.4); Carbon Dioxide 27 mmol/L (22-30); Chloride 103 mmol/L (96-108); Globulin 2.4 gm/dL (2.2-3.7); Glomerular Filtration Rate 109; Glucose 137 mg/dL (70-105); Lactate Dehydrogenase 173 U/L (94-250); Triglycerides 131 mg/dl (<150); Uric Acid 4.1 mg/dL (2.5-8.0)
[2019-03-16] MEDS: IPRATROPIUM/ALBUTEROL 3 ML AMPUL.NEB NEB PRN ×3 (06:53→18:42)
[2019-03-16] MEDS: BUDESONIDE 0.5 MG/2 ML AMPUL.NEB NEB SCH ×3 (06:54→23:32)
--- NOTE | 2019-03-16 07:07 | XRay Report ---
INDICATION: Postsurgical follow-up. Status post splenectomy TECHNIQUE: AP chest x-ray,portable semiupright COMPARISON: Previous examinations dated 03/15/2019, 03/14/2019, 03/14/2019 FINDINGS:No change in position of endotracheal tube or right central venous catheter. There is an esophagogastric tube in the stomach No acute pulmonary parenchymal infiltrate. Lungs are negative. Heart size and vascularity are normal. Jaja and mediastinum are negative. IMPRESSION: 1. Endotracheal tube, right central venous catheter, esophagogastric tube are unchanged 2. No acute abnormality Interpreted and Authenticated by: Ace Ferreira 03/16/19
[2019-03-16] MEDS: CHLORHEXIDINE GLUCONATE 1 ML ORAL.SOL SWABMOUTH SCH ×2 (08:53→21:22)
[2019-03-16] MEDS: 0.9 % SODIUM CHLORIDE 250 ML IV SCH (08:55)
[2019-03-16] MEDS: 0.9 % SODIUM CHLORIDE 1,000 ML IV SCH (08:56)
[2019-03-16] MEDS: FAMOTIDINE/PF 20 MG/2 ML VIAL IV SCH ×2 (09:14→21:22)
[2019-03-16] MEDS: methylPREDNISolone SOD SUCC 125 MG/2 ML VIAL IV SCH (09:14)
[2019-03-16] MEDS ORDERED: NOREPINEPHRINE BITARTRATE 16 MG in 0.9 % SODIUM CHLORIDE 234 ML IV PRN (09:15)
[2019-03-16] MEDS: NICOTINE 21 MG PATCH TOPICAL SCH (11:02)
--- NOTE | 2019-03-16 11:10 | Internal Med Progress Note ---
Medical - PN: Subj Patient information: Note initiated : 03/16/19 at 11:07 am Service Date, if different from initiated Date: [] Patient: Armando Amos a 63 y/o M admitted on 03/14/19 for chest pain. Chief Complaint: [] Interval history: Mr. Amos is a 63 year old M with a known history of COPD managed by pulmonology Dr. Bell. Patient presents to the ER with progressive upper abdominal pain that started roughly 2 weeks prior to presentation that has gradually intensified. He denies abdominal trauma or nausea or emesis. He further denies hematemesis or bloody stool. He denies weight loss. He denies pain worsening with respiration however pain is made worse by eating. Initial work-up in the ER was consistent with retroperitoneal hemorrhage on CT. Surgery was consulted and recommended hospitalist service to admit for monitoring and observation. Patient initial hemoglobin was 12.4 with systolics around mid 90s.. Patient received crystalloids. Initial white count 14.3. INR 1 creatinine 0.8. Hospitalist service was subsequently consulted At the time of evaluation patient is slightly anxious. Systolics around low 90s. No tachycardia or diaphoresis. Patient able to answer most of the questi ons. He complains of abdominal discomfort with pain 6 out of 10 to 8 out of 10 epigastric area relating to the flank and back. He denies recent trauma, URI symptoms, prior history of similar episodes or hospitalization or peptic ulcer disease. He is mildly short of breath but consistent with his baseline COPD. 03/14 6.30 AM- Responded to nurse call early this morning with dropping systolics. Hematocrit down to 24 from 35. Systolics down to mid 70s. Start aggressive crystalloid resuscitation/massive transfusion protocol with 4 units PRBC/vasopressors. Surgery consulted for emergent surgical intervention. 03/14-2 PM Patient now postop expiratory restart me. Status post 6 units PRBC transfusion. Currently on mechanical ventilation. On pressors to maintain map at goal. ICU sedation for mechanical ventilation on fentanyl/Versed. Potassium at 6. Initiate hyperkalemia protocol. Continue mechanical ventilation per protocol. Continue diuresis/crystalloids 03/15-patient doing well. On mechanical ventilation with ICU sedation on Versed/fentanyl. MONIKA drain output 90 cc last shift. Urine output greater than 30 cc an hour. Map at goal. Off pressors. Anticipate extubation in 24 hours. No overnight events, fever. White count 14,000. Hemoglobin stable around 11.1. Potassium trended down from 6-4.3. Eyes no even. Will start diuresing later in the evening in anticipation of extubation. Remains in ileus. Family at bedside. Discussed plan of care with family and patient. 03/16-patient doing well. Off sedations. Respond to verbal commands. Rapid shallow breathing index 22. Blood gas favorable on 25% FiO2. Good urine output. Status post 1 unit PRBC transfusion last night. No overnight fever chills. MONIKA drain no clear output. Nontender nondistended abdomen. ventilator liberation today. Discussed with surgery option of nutrition in light of 48 hours of nutrition support. Replace electrolytes as indicated. De-escalate antibiotics if approved by surgery. Continue diuresis to improve lung compliance/third spacing lymphedema - Constitutional Vitals: Vital Signs Temp Pulse Resp BP Pulse Ox 99.5 F H 75 16 126/83 100 03/16/19 10:01 03/16/19 10:01 03/16/19 10:01 03/16/19 10:01 03/16/19 10:01 Period Temp Pulse Resp BP Sys/Best Pulse Ox Last 24 Hr 98.4 F-100.0 F 59-91 11-26 96-134/62-84 93-100 Intake and Output 03/15/19 03/16/19 03/16/19 21:59 05:59 13:59 Intake Total 2079 166 Output Total 425 1552 1030 Balance 1654 -1386 -1030 Weight 220 lb 3.2 oz Intake & Output: Intake & Output 03/15/19 03/16/19 03/16/19 21:59 05:59 13:59 Intake Total 2079 166 Output Total 425 1552 1030 Balance 1654 -1386 -1030 Weight 220 lb 3.2 oz Intake: IV 1738 166 Sodium Chloride 0.9% 1,000 ml @ 1214 Wide Open IV BOLUS ONE Rx#: [id number] Sodium Chloride 0.9% 250 ml @ 226 20 mls/hr IV .[id number] [facility] Rx#: [id number] PRECEDEX 400 MCG/100 ML 46 DEXTROSE 400 mcg In 100 ml @ 0. 2 MCG/KG/HR 4.94 mls/hr IV . [id number] JENNY Rx#:[id number] Levophed 16 mg In Sodium 130 Chloride 0.9% 234 ml @ 10 MCG/ MIN 9.375 mls/hr IV Q24H [facility] Rx #:[id number] Zosyn 3.375 gm In Dextrose 5% 50 100 in Water 50 ml @ 100 mls/hr IV Q6H [facility] Rx#:[id number] fentaNYL 2,500 MCG In Sodium 118 20 Chloride 0.9% 200 ml @ 25 MCG/ HR 2.5 mls/hr IV Q24H [facility] Rx#: [id number] Blood Product 341 Output: Drainage 7 Left Abdomen MONIKA Drain 7 Urine Catheter Amount 267 420 2996 Void Amount 1050 Other: Urine Appearance Clear Clear Clear Uretheral (Jessica) Clear Clear Urine Color Pale Pale Pale Uretheral (Jessica) Pale Pale Bright Yellow Dark Yellow Urine Odor Normal Normal Normal # Bowel Movements 1 General appearance: no acute distress Exam: On mechanical ventilation Jessica draining clear urine No telemetry events MONIKA drain minimal output Bowel sounds sluggish Diminished breath sounds bases Alert and respond to commands Medical - PN: Obj Da - Labs CBC & Chem 7: 03/16/19 04:20 03/16/19 04:20 Labs: Abnormal Lab Results 03/16/19 03/16/19 03/15/19 04:20 04:20 21:35 WBC 14.6 H 14.6 H RBC 3.45 L 3.43 L Hgb 10.6 L 10.2 L Hct 30.8 L 29.6 L POC Hct RDW 14.7 H Gran % 90.3 H 86.1 H Lymph % (Auto) 5.5 L 6.2 L Gran # 13.2 H 12.6 H Lymph # (Auto) 0.8 L 0.9 L [place] # (Auto) 1.1 H POC Potassium Chloride Creatinine 0.6 L Glucose 137 H POC Glucose Calcium 7.7 L POC WB Ioniz Calcium Phosphorus 2.0 L Alkaline Phosphatase 38 L Total Protein 5.2 L Albumin 2.8 L Lipase Ur Specific [place] Urine Ketones Ethyl Alcohol 03/15/19 03/15/19 03/15/19 18:29 17:54 04:00 WBC RBC Hgb Hct POC Hct 26.0 L 24.0 L RDW Gran % Lymph % (Auto) Gran # Lymph # (Auto) [place] # (Auto) POC Potassium Chloride Creatinine Glucose 131 H POC Glucose 120 H 106 H Calcium 7.5 L POC WB Ioniz Calcium 0.97 L 1.04 L Phosphorus Alkaline Phosphatase 36 L Total Protein 4.9 L Albumin 2.7 L Lipase Ur Specific [place] Urine Ketones Ethyl Alcohol 03/15/19 03/14/19 03/14/19 04:00 21:02 19:54 WBC 14.2 H RBC 3.67 L Hgb 11.1 L 12.3 L Hct 32.7 L 36.1 L POC Hct RDW 14.8 H Gran % 79.4 H Lymph % (Auto) 9.8 L Gran # 11.3 H Lymph # (Auto) 1.4 L [place] # (Auto) 1.5 H POC Potassium Chloride Creatinine Glucose POC Glucose Calcium POC WB Ioniz Calcium Phosphorus Alkaline Phosphatase Total Protein Albumin Lipase Ur Specific [place] 1.036 H Urine Ketones 5/tr A Ethyl Alcohol 03/14/19 03/14/19 03/14/19 16:42 13:06 09:53 WBC RBC Hgb Hct POC Hct 38.0 L 37.0 L 27.0 L RDW Gran % Lymph % (Auto) Gran # Lymph # (Auto) [place] # (Auto) POC Potassium 5.2 H 6.0 H* 5.6 H Chloride Creatinine Glucose POC Glucose 138 H 133 H 151 H Calcium POC WB Ioniz Calcium 1.04 L 1.05 L 1.13 L Phosphorus Alkaline Phosphatase Total Protein Albumin Lipase Ur Specific [place] Urine Ketones Ethyl Alcohol 03/14/19 03/14/19 03/14/19 08:00 06:25 01:30 WBC 14.6 H RBC 2.83 L Hgb 8.5 L Hct 25.4 L POC Hct 24.0 L 30.0 L RDW Gran % 82.4 H Lymph % (Auto) 12.9 L Gran # 12.0 H Lymph # (Auto) [place] # (Auto) POC Potassium 5.9 H* Chloride Creatinine Glucose POC Glucose 172 H 126 H Calcium POC WB Ioniz Calcium 1.08 L 1.07 L Phosphorus Alkaline Phosphatase Total Protein Albumin Lipase Ur Specific [place] Urine Ketones Ethyl Alcohol 03/14/19 03/14/19 03/14/19 01:05 01:05 01:05 WBC 14.3 H RBC 4.04 L Hgb 12.2 L Hct 35.7 L POC Hct RDW Gran % Lymph % (Auto) Gran # 10.7 H Lymph # (Auto) [place] # (Auto) 1.0 H POC Potassium Chloride 95 L Creatinine Glucose 151 H POC Glucose Calcium POC WB Ioniz Calcium Phosphorus Alkaline Phosphatase Total Protein Albumin Lipase 213 H Ur Specific [place] Urine Ketones Ethyl Alcohol 0.013 H Meds: Medications Albuterol/Ipratropium (Duoneb) 3 ml NEB Q4HP PRN PRN Reason: Shortness Of Breath Last Admin: 03/16/19 06:53 Dose: 3 ml Documented by: Budesonide (Pulmicort) 0.5 mg NEB Q12 JENNY Last Admin: 03/16/19 06:54 Dose: 0.5 mg Documented by: Chlorhexidine Gluconate (Peridex) 15 ml SWABMOUTH BID JENNY Last Admin: 03/16/19 08:53 Dose: 15 ml Documented by: Dextrose (Dextrose 50%) 0 ml IV UD PRN PRN Reason: Hypoglycemia Diagnostic Test (Pha) (Accu-Chek) 1 each FS Q6 JENNY Last Admin: 03/16/19 05:49 Dose: 1 each Documented by: Famotidine (Pepcid) 20 mg IV Q12 JENNY Last Admin: 03/16/19 09:14 Dose: 20 mg Documented by: Glucose (Insta-Glucose) 15 gm PO PRN PRN PRN Reason: Hypoglycemia Hydromorphone HCl (Dilaudid) 1 mg IV Q2HP PRN PRN Reason: PAIN LEVEL > 6 Last Admin: 03/16/19 05:06 Dose: 1 mg Documented by: Heparin Sodium/Sodium Chloride (Heparin/Ns) 500 mls @ 0 mls/hr IV .Q0M JENNY; Protocol Piperacillin Sod/Tazobactam (Sod 3.375 gm/ Dextrose) 50 mls @ 100 mls/hr IV Q6H [facility]; Protocol Last Infusion: 03/16/19 05:54 Dose: Infused Documented by: Sodium Chloride (Sodium Chloride 0.9%) 1,000 mls @ 20 mls/hr IV .Q24H [facility] Last Admin: 03/16/19 08:56 Dose: Not Given Documented by: Dexmedetomidine HCl (Precedex 400 Mcg/100 Ml Dextrose) 400 mcg in 100 mls @ 4.94 mls/hr IV .[id number] JENNY; Protocol Last Titration: 03/16/19 05:00 Dose: 0 mcg/kg/hr, 0 mls/hr Documented by: Sodium Chloride (Sodium Chloride 0.9%) 250 mls @ 20 mls/hr IV .[id number] [facility] Last Admin: 03/16/19 08:55 Dose: Not Given Documented by: Norepinephrine Bitartrate 16 (mg/ Sodium Chloride) 250 mls @ 9.375 mls/hr IV Q24HP PRN; Protocol PRN Reason: Hypotension Insulin Human Lispro (Humalog) 0 unit SQ Q6 [facility]ENNY; Protocol Last Admin: 03/16/19 05:50 Dose: 1 unit Documented by: Lorazepam (Ativan) 1 mg IV Q6HP PRN PRN Reason: ANXIETY/SEDATION Last Admin: 03/16/19 04:56 Dose: 1 mg Documented by: Methylprednisolone Sodium Succinate (Solu-Medrol) 62.5 mg IV Q12 [facility] Last Admin: 03/16/19 09:14 Dose: 62.5 mg Documented by: Metoclopramide HCl (Reglan) 10 mg IV Q6 [facility] Last Admin: 03/16/19 05:38 Dose: 10 mg Documented by: Nicotine (Nicoderm) 21 mg TOPICAL DAILY@1000 [facility] Last Admin: 03/16/19 11:02 Dose: 21 mg Documented by: Promethazine HCl (Phenergan) 12.5 mg IV Q4HP PRN PRN Reason: Nausea And Vomiting Sodium Chloride (Saline Flush) 10 ml IV UD PRN PRN Reason: Bleeding Sodium Chloride (Saline Flush) 10 ml IV Q12 [facility] Last Admin: 03/16/19 09:34 Dose: 10 ml Documented by: Sodium Chloride (Saline Flush) 10 ml IV Q8 [facility] Last Admin: 03/16/19 05:38 Dose: 10 ml Documented by: Medical - PN: A/P - Time Spent With Patient Total time spent is greater than 50% in coordination of care (as documented) at patient's floor/unit and/or counseling patient: Greater than 35 minutes (Critical care time) (1) Nontraumatic splenic rupture Status: Acute Assessment and plan: * Mechanical ventilation for airway protection / hypoxic respiratory failure- sedation holiday this morning. R SBI 22. ABG favorable currently on 30% FiO2/PEEP 5. Anticipate vent liberation today. * Acute intra-abdominal/intraperitoneal hemorrhage secondary to splenic rupture. Status post ex lap. Postop day 2. Managed per surgery * Hemorrhagic shock with ABLA status post 7 unit PRBC transfusion. Hemoglobin stable at 11. Off pressors. * Hyperkalemia secondary to massive hemolysis-resolved * Leukocytosis at 14,000. Likely secondary to intra-abdominal bleed/surgical stress/steroids. DC IV steroids * History of COPD continue bronchodilators/budesonide * Full code * Prophylaxis SCDs Plan * Continue gentle diuresis * Extubate to high flow oxygen/continue pulmonary toilet/bronchodilators * Discontinue IV steroids * Consider enteral nutrition if persistent ileus * Postop care per surgery * Improved prognosis Current Visit: Yes Procedures - Arterial Line Size (Gauge): 20
--- NOTE | 2019-03-16 11:33 | Operative Note ---
DATE OF OPERATION: 03/14/2019 PREOPERATIVE DIAGNOSIS: Spontaneous splenic rupture. POSTOPERATIVE DIAGNOSIS: Spontaneous splenic rupture with massive hemoperitoneum. PROCEDURE: Exploratory laparotomy with splenectomy. SURGEON: Jessica Hendrix M.D. FINDINGS: Major rupture of the spleen with separation of the capsule and free massive hemoperitoneum. DESCRIPTION OF PROCEDURE: The patient was confirmed to have massive splenic rupture with massive amount of bleeding around the spleen over the liver and both gutters in the pelvis. He was clinically unstable initially and was stabilized in the ICU after which he was taken to the operative suite. General anesthesia was induced. His abdomen was prepped and draped in a sterile field. A hockey-stick type left subcostal incision was made. Muscles were divided with electrocautery and the peritoneum was entered. There was an escape of a large volume of old dark blood upon entering the peritoneal cavity. The massive clot in the left upper quadrant was rapidly removed using laparotomy sponges and suction. Once this was done, the capsule of the spleen was seen and this was removed since it was totally from the spleen. The spleen was then identified. It was grasped with my left hand and compressed. Once this was done, we allowed anesthesia to stabilize the blood pressure and then proceeded with the operation. Irrigation in the left upper quadrant was carried out. A retractor was placed. With the spleen firmly grasped in the hand, sequentially took down the splenocolic ligament and clamped it. The short gastrics were sequentially dissected and clamped using right angle clamps. The splenic artery and vein were sequentially clamped with Oliva clamps and divided. The superior short gastrics were sequentially clamped and divided. The spleen was passed off. The vessels were all then tied individually using doubled 2-0 silk suture. Copious irrigation was carried out. Suction and irrigation was carried out over the left and the right lobe of the liver and along the right gutter. The pelvis was suctioned as well as the left gutter. The end of the pancreas was identified. It was very hard, but was not damaged. It was not explored. The patient has a history of alcohol disease. Multiple sponges were placed in the operative field to make sure there was no bleeding from the vessels. More irrigation was carried out. A #10 Bradly drain was placed in the splenic bed and brought out through a lateral incision. The cavity in that area was then covered with two large containers of Arlette hemostatic powder. Sponge, needle, instrument and blade counts were verified as correct x2. The fascia and muscle were closed in two layers using running 0 Prolene. Subcutaneous tissue was closed with running 2-0 Monocryl. Skin was closed with conor. The drain was secured with 2-0 nylon. The patient was stable. He was left intubated and sedated and transferred to the ICU for postanesthetic monitoring. He tolerated the procedure well. LCS:jeanine Job ID: [id number] Doc ID: [id number] Jessica Hendrix M.D.
--- NOTE | 2019-03-16 11:52 | General Surgery Progress Note ---
Subjective Patient reports: feels better, still having pain, pain is less, flatus, bowel movement, afebrile Narrative: Note initiated : 03/16/19 at 11:50 am Service Date, if different from initiated Date: [] Patient: Armando Amos 63 y/o M admitted on 03/14/19 for chest pain. Chief Complaint: [patient is doing remarkably well. He has progressed throughout the night and was successfully extubated earlier today. He is maintaining good oxygenation on 3 L O2. He is bright and alert and answers questions appropriately. I discussed this operation with. His family is here and I've answered all questions. White blood count 14.6, hemoglobin 10.6, hematocrit 30.8, potassium 4, BUN 15, creatinine 0.6, phosphorus 2.] Objective Temp Pulse Resp BP Pulse Ox 99.5 F H 78 17 126/83 96 03/16/19 10:01 03/16/19 11:26 03/16/19 11:26 03/16/19 10:01 03/16/19 11:26 - Additional Data Intake & Output - Last 24 hours: Intake & Output 03/14/19 03/15/19 03/16/19 03/17/19 05:59 05:59 05:59 05:59 Intake Total 1999 7808 3208 Output Total 15 3570 2567 1030 Balance 1984 2719 641 -1030 Weight 210 lb 217 lb 12.8 oz 220 lb 3.2 oz - General physical appearance well developed, well nourished, no distress - Eyes PERRL, normal ocular movement - ENT normal pinna, normal nares, normal mucosa, no hearing loss, no congestion - Neck no masses, no bruits, trachea midline, no lymphadenopathy, no venous distension - Respiratory normal expansion, normal respiratory effort, clear to auscultation (waking L) - Cardiovascular Cardiovascular exam: Present: normal rate and rhythm, RRR, +S1, +S2. Absent: JVD, tachycardia - Abdomen non tender, bowel sounds (patient has excellent bowel sounds), surgical scars ( MONIKA drainage is serous), masses (none) - Integumentary no rash, no growths, no abnormal pigmentation - Neurologic normal coordination, normal sensation - Psychiatric oriented to time, oriented to person, oriented to place, speech is normal, memor y intact - Labs 03/16/19 04:20 03/16/19 04:20 Diabetes panel 03/16/19 Range/Units 04:20 Sodium 140 (133-145) mmol/L Potassium 4.0 (3.3-5.1) mmol/L Chloride 103 (96-108) mmol/L Carbon Dioxide 27 (22-30) mmol/L BUN 15 (8-23) mg/dl Creatinine 0.6 L (0.7-1.2) mg/dl Glucose 137 H (70-105) mg/dL Calcium 7.7 L (8.6-10.4) mg/dl AST 17 (0-37) U/l ALT 18 (0-40) U/l Alkaline Phosphatase 38 L (39-117) U/L Total Protein 5.2 L (5.9-8.4) gm/dL Albumin 2.8 L (3.2-5.2) gm/dL Triglycerides 131 (<150) mg/dl Calcium panel 03/16/19 Range/Units 04:20 Calcium 7.7 L (8.6-10.4) mg/dl Phosphorus 2.0 L (2.7-4.5) mg/dL Albumin 2.8 L (3.2-5.2) gm/dL Pituitary panel 03/16/19 Range/Units 04:20 Sodium 140 (133-145) mmol/L Potassium 4.0 (3.3-5.1) mmol/L Chloride 103 (96-108) mmol/L Carbon Dioxide 27 (22-30) mmol/L BUN 15 (8-23) mg/dl Creatinine 0.6 L (0.7-1.2) mg/dl Glucose 137 H (70-105) mg/dL Calcium 7.7 L (8.6-10.4) mg/dl Adrenal panel 03/16/19 Range/Units 04:20 Sodium 140 (133-145) mmol/L Potassium 4.0 (3.3-5.1) mmol/L Chloride 103 (96-108) mmol/L Carbon Dioxide 27 (22-30) mmol/L BUN 15 (8-23) mg/dl Creatinine 0.6 L (0.7-1.2) mg/dl Glucose 137 H (70-105) mg/dL Calcium 7.7 L (8.6-10.4) mg/dl Total Bilirubin 0.3 (0.0-1.0) mg/dL AST 17 (0-37) U/l ALT 18 (0-40) U/l Alkaline Phosphatase 38 L (39-117) U/L Total Protein 5.2 L (5.9-8.4) gm/dL Albumin 2.8 L (3.2-5.2) gm/dL Assessment and Plan (1) Nontraumatic splenic rupture Status: Acute Assessment and plan: Patient remains clinically stable. Hemoglobin is stable No evidence of ongoing bleeding Discontinue nasogastric tube Start clear liquids Current Visit: Yes (2) COPD (chronic obstructive pulmonary disease) Status: Chronic Assessment and plan: Start inhalers as per home schedule Current Visit: No (3) Obstructive sleep apnea Status: Chronic Current Visit: No - Time Spent With Patient Total time spent is greater than 50% in coordination of care (as documented) at patient's floor/unit and/or counseling patient:
[2019-03-16] MEDS: DEXMEDETOMIDINE 400 MCG/100 ML BAG IV SCH (14:27)
[2019-03-16] MEDS: ACETAMINOPHEN 1,000 MG/100 ML BOTTLE IV PRN ×2 (15:44→23:41)
[2019-03-17] MEDS: IPRATROPIUM/ALBUTEROL 3 ML AMPUL.NEB NEB PRN ×3 (02:17→17:19)
[2019-03-17] MEDS: METOCLOPRAMIDE 10 MG/2 ML VIAL IV SCH ×3 (05:32→20:50)
[2019-03-17] MEDS: PIPERACILLIN SODIUM/TAZOBACTAM 3.375 GM in DEXTROSE 5% IN WATER 50 ML IV SCH ×3 (05:33→20:51)
[2019-03-17] MEDS: 0.9 % SODIUM CHLORIDE 10 ML SYRINGE IV SCH ×3 (05:33→12:53)
[2019-03-17 05:52] LABS: Basophils # (Auto) 0 K/mcL (0.0-0.3); Basophils % (Auto) 0.1 % (0.0-2.0); Eosinophils # (Auto) 0 K/mcL (0.0-0.7); Eosinophils % (Auto) 0 % (0.0-7.0); Hematocrit 28.4 % (41.0-55.0); Hemoglobin 9.5 g/dL (13.5-16.5); Lymphocytes # (Auto) 2.2 K/mcL (1.5-4.8); Lymphocytes % (Auto) 13.1 % (15.5-49.0); Mean Cell Volume 90.1 fL (80.0-100.0); Mean Corpuscular HGB Conc 33.5 g/dL (31.0-36.0); Mean Platelet Volume 7.4 fL (7.4-10.4); Monocytes # (Auto) 2.1 K/mcL (0.1-0.9); Monocytes % (Auto) 12.8 % (1.0-12.0); Platelet Count 319 K/mcL (140-440); RBC 3.16 M/mcL (4.50-5.90); Red Cell Distribution Width 14.2 % (11.5-14.5); WBC 16.4 K/mcL (4.5-11.0)
[2019-03-17 06:09] LABS: ALT/SGPT 16 U/l (0-40); AST/SGOT 15 U/l (0-37); Albumin 2.9 gm/dL (3.2-5.2); Albumin/Globulin Ratio 1.3 (1.0-2.3); Alkaline Phosphatase 34 U/L (39-117); Bilirubin,Direct < 0.2 mg/dL (0.0-0.3); Bilirubin,Total 0.3 mg/dL (0.0-1.0); Blood Urea Nitrogen 14 mg/dl (8-23); Calcium 7.9 mg/dl (8.6-10.4); Carbon Dioxide 32 mmol/L (22-30); Chloride 102 mmol/L (96-108); Globulin 2.2 gm/dL (2.2-3.7); Glomerular Filtration Rate 117; Glucose 95 mg/dL (70-105); Lactate Dehydrogenase 161 U/L (94-250); Phosphorous 1.9 mg/dL (2.7-4.5); Triglycerides 117 mg/dl (<150); Uric Acid 3.4 mg/dL (2.5-8.0)
--- NOTE | 2019-03-17 06:30 | XRay Report ---
INDICATION: Postsurgical follow-up. Status post extubation TECHNIQUE: AP chest x-ray,portable semiupright COMPARISON: Previous examination dated 03/16/2019 FINDINGS:Endotracheal tube has been removed. Right central venous catheter is unchanged. Esophagogastric tube is not present. Lungs are negative. No parenchymal infiltrate or mass. Heart size and vascularity are normal. Jaja and mediastinum are negative. IMPRESSION: 1. Status post extubation 2. No acute or focal abnormality Interpreted and Authenticated by: Ace Ferreira 03/17/19
[2019-03-17] MEDS: FAMOTIDINE/PF 20 MG/2 ML VIAL IV SCH (07:05)
[2019-03-17] MEDS: ACETAMINOPHEN 1,000 MG/100 ML BOTTLE IV PRN (07:05)
[2019-03-17] MEDS: HYDROmorphone 2 MG/ML VIAL IV PRN ×4 (07:16→21:33)
[2019-03-17] MEDS: NICOTINE 21 MG PATCH TOPICAL SCH (08:23)
[2019-03-17] MEDS ORDERED: POTASSIUM PHOSPHATE 40 MEQ in DEXTROSE 5% IN WATER 500 ML IV ONE (08:52)
[2019-03-17] MEDS ORDERED: BISACODYL 10 MG SUPP.RECT PR PRN ×2 (09:24→14:43)
[2019-03-17] MEDS: BUDESONIDE 0.5 MG/2 ML AMPUL.NEB NEB SCH ×3 (09:29→21:41)
--- NOTE | 2019-03-17 09:49 | Internal Med Progress Note ---
Medical - PN: Subj Patient information: Note initiated : 03/17/19 at 9:45 am Service Date, if different from initiated Date: [] Patient: Armando Amos a 63 y/o M admitted on 03/14/19 for chest pain. Chief Complaint: [] Interval history: Mr. Amos is a 63 year old M with a known history of COPD managed by pulmonology Dr. Bell. Patient presents to the ER with progressive upper abdominal pain that started roughly 2 weeks prior to presentation that has gradually intensified. He denies abdominal trauma or nausea or emesis. He further denies hematemesis or bloody stool. He denies weight loss. He denies pain worsening with respiration however pain is made worse by eating. Initial work-up in the ER was consistent with retroperitoneal hemorrhage on CT. Surgery was consulted and recommended hospitalist service to admit for monitoring and observation. Patient initial hemoglobin was 12.4 with systolics around mid 90s.. Patient received crystalloids. Initial white count 14.3. INR 1 creatinine 0.8. Hospitalist service was subsequently consulted At the time of evaluation patient is slightly anxious. Systolics around low 90s. No tachycardia or diaphoresis. Patient able to answer most of the questio ns. He complains of abdominal discomfort with pain 6 out of 10 to 8 out of 10 epigastric area relating to the flank and back. He denies recent trauma, URI symptoms, prior history of similar episodes or hospitalization or peptic ulcer disease. He is mildly short of breath but consistent with his baseline COPD. 03/14 6.30 AM- Responded to nurse call early this morning with dropping systolics. Hematocrit down to 24 from 35. Systolics down to mid 70s. Start aggressive crystalloid resuscitation/massive transfusion protocol with 4 units PRBC/vasopressors. Surgery consulted for emergent surgical intervention. 03/14-2 PM Patient now postop expiratory restart me. Status post 6 units PRBC transfusion. Currently on mechanical ventilation. On pressors to maintain map at goal. ICU sedation for mechanical ventilation on fentanyl/Versed. Potassium at 6. Initiate hyperkalemia protocol. Continue mechanical ventilation per protocol. Continue diuresis/crystalloids 03/15-patient doing well. On mechanical ventilation with ICU sedation on Versed/fentanyl. MONIKA drain output 90 cc last shift. Urine output greater than 30 cc an hour. Map at goal. Off pressors. Anticipate extubation in 24 hours. No overnight events, fever. White count 14,000. Hemoglobin stable around 11.1. Potassium trended down from 6-4.3. Eyes no even. Will start diuresing later in the evening in anticipation of extubation. Remains in ileus. Family at bedside. Discussed plan of care with family and patient. 03/16-patient doing well. Off sedations. Respond to verbal commands. Rapid shallow breathing index 22. Blood gas favorable on 25% FiO2. Good urine output. Status post 1 unit PRBC transfusion last night. No overnight fever chills. MONIKA drain no clear output. Nontender nondistended abdomen. ventilator liberation today. Discussed with surgery option of nutrition in light of 48 hours of nutrition support. Replace electrolytes as indicated. De-escalate antibiotics if approved by surgery. Continue diuresis to improve lung compliance/third spacing lymphedema 03/17-patient doing well overnight. Now on room air. Complains of dull discomfort/distention. X-ray abdomen pending. Chest x-ray this morning unremarkable. White count 16.4. Potassium 3.4/phosphorus 1.9/hemoglobin 9.5. No overnight fever. T-max99.5. Family at bedside. No concerns expressed to nursing staff. - Constitutional Vitals: Vital Signs Temp Pulse Resp BP Pulse Ox 97.9 F 58 L 22 148/96 95 03/17/19 08:01 03/17/19 06:01 03/17/19 09:01 03/17/19 09:01 03/17/19 09:30 Period Temp Pulse Resp BP Sys/Best Pulse Ox Last 24 Hr 97.6 F-99.5 F 55-109 12-25 111-157/60-101 91-100 Intake and Output 03/16/19 03/17/19 03/17/19 21:59 05:59 13:59 Intake Total 1488 150 150 Output Total 405 385 Balance 1083 -235 150 Weight 216 lb 4.8 oz Intake & Output: Intake & Output 03/16/19 03/17/19 03/17/19 21:59 05:59 13:59 Intake Total 1488 150 150 Output Total 405 385 Balance 1083 -235 150 Weight 216 lb 4.8 oz Intake: IV 688 150 150 Sodium Chloride 0.9% 1,000 ml @ 240 20 mls/hr IV .Q24H [facility] Rx#: [id number] Sodium Chloride 0.9% 250 ml @ 248 20 mls/hr IV .[id number] [facility] Rx#: [id number] PRECEDEX 400 MCG/100 ML 0 DEXTROSE 400 mcg In 100 ml @ 0. 2 MCG/KG/HR 4.94 mls/hr IV . [id number] [facility] Rx#:[id number] Zosyn 3.375 gm In Dextrose 5% 100 50 50 in Water 50 ml @ 100 mls/hr IV Q6H [facility] Rx#:[id number] Oral 800 Output: Drainage 5 10 Left Abdomen MONIKA Drain 5 10 Urine Catheter Amount 50 Void Amount 350 375 Other: Urine Appearance Clear Clear Urine Color Bright Yellow Bright Yellow General appearance: no acute distress Exam: No telemetry events Distended abdomen Nonlabored breathing Slightly uncomfortable Lymphedema improved Medical - PN: Obj Da - Labs CBC & Chem 7: 03/17/19 03:40 03/17/19 03:40 Labs: Abnormal Lab Results 03/17/19 03/17/19 03/16/19 03:40 03:40 04:20 WBC 16.4 H RBC 3.16 L Hgb 9.5 L Hct 28.4 L POC Hct RDW Gran % Lymph % (Auto) 13.1 L [place] % (Auto) 12.8 H Gran # 12.2 H Lymph # (Auto) [place] # (Auto) 2.1 H POC Potassium Carbon Dioxide 32 H Creatinine 0.5 L 0.6 L Glucose 137 H POC Glucose Calcium 7.9 L 7.7 L POC WB Ioniz Calcium Phosphorus 1.9 L 2.0 L Alkaline Phosphatase 34 L 38 L Total Protein 5.1 L 5.2 L Albumin 2.9 L 2.8 L Ur Specific [place] Urine Ketones 03/16/19 03/15/19 03/15/19 04:20 21:35 18:29 WBC 14.6 H 14.6 H RBC 3.45 L 3.43 L Hgb 10.6 L 10.2 L Hct 30.8 L 29.6 L POC Hct 26.0 L RDW 14.7 H Gran % 90.3 H 86.1 H Lymph % (Auto) 5.5 L 6.2 L [place] % (Auto) Gran # 13.2 H 12.6 H Lymph # (Auto) 0.8 L 0.9 L [place] # (Auto) 1.1 H POC Potassium Carbon Dioxide Creatinine Glucose POC Glucose 120 H Calcium POC WB Ioniz Calcium 0.97 L Phosphorus Alkaline Phosphatase Total Protein Albumin Ur Specific [place] Urine Ketones 03/15/19 03/15/19 03/15/19 17:54 04:00 04:00 WBC 14.2 H RBC 3.67 L Hgb 11.1 L Hct 32.7 L POC Hct 24.0 L RDW 14.8 H Gran % 79.4 H Lymph % (Auto) 9.8 L [place] % (Auto) Gran # 11.3 H Lymph # (Auto) 1.4 L [place] # (Auto) 1.5 H POC Potassium Carbon Dioxide Creatinine Glucose 131 H POC Glucose 106 H Calcium 7.5 L POC WB Ioniz Calcium 1.04 L Phosphorus Alkaline Phosphatase 36 L Total Protein 4.9 L Albumin 2.7 L Ur Specific [place] Urine Ketones 03/14/19 03/14/19 03/14/19 21:02 19:54 16:42 WBC RBC Hgb 12.3 L Hct 36.1 L POC Hct 38.0 L RDW Gran % Lymph % (Auto) [place] % (Auto) Gran # Lymph # (Auto) [place] # (Auto) POC Potassium 5.2 H Carbon Dioxide Creatinine Glucose POC Glucose 138 H Calcium POC WB Ioniz Calcium 1.04 L Phosphorus Alkaline Phosphatase Total Protein Albumin Ur Specific [place] 1.036 H Urine Ketones 5/tr A 03/14/19 03/14/19 13:06 09:53 WBC RBC Hgb Hct POC Hct 37.0 L 27.0 L RDW Gran % Lymph % (Auto) [place] % (Auto) Gran # Lymph # (Auto) [place] # (Auto) POC Potassium 6.0 H* 5.6 H Carbon Dioxide Creatinine Glucose POC Glucose 133 H 151 H Calcium POC WB Ioniz Calcium 1.05 L 1.13 L Phosphorus Alkaline Phosphatase Total Protein Albumin Ur Specific [place] Urine Ketones Meds: Medications Albuterol/Ipratropium (Duoneb) 3 ml NEB Q4HP PRN PRN Reason: Shortness Of Breath Last Admin: 03/17/19 09:29 Dose: 3 ml Documented by: Bisacodyl (Dulcolax) 10 mg [place] DAILYP PRN PRN Reason: Constipation Budesonide (Pulmicort) 0.5 mg NEB Q12 [facility] Last Admin: 03/17/19 09:29 Dose: 0.5 mg Documented by: Dextrose (Dextrose 50%) 0 ml IV UD PRN PRN Reason: Hypoglycemia Famotidine (Pepcid) 20 mg IV Q12 [facility] Last Admin: 03/17/19 07:05 Dose: 20 mg Documented by: Glucose (Insta-Glucose) 15 gm PO PRN PRN PRN Reason: Hypoglycemia Hydromorphone HCl (Dilaudid) 1 mg IV Q2HP PRN PRN Reason: PAIN LEVEL > 6 Last Admin: 03/17/19 07:16 Dose: 1 mg Documented by: Heparin Sodium/Sodium Chloride (Heparin/Ns) 500 mls @ 0 mls/hr IV .Q0M [facility]; Protocol Piperacillin Sod/Tazobactam (Sod 3.375 gm/ Dextrose) 50 mls @ 100 mls/hr IV Q6H [facility]; Protocol Last Infusion: 03/17/19 06:05 Dose: Infused Documented by: Norepinephrine Bitartrate 16 (mg/ Sodium Chloride) 250 mls @ 9.375 mls/hr IV Q24HP PRN; Protocol PRN Reason: Hypotension Acetaminophen (Ofirmev) 1,000 mg in 100 mls @ 200 mls/hr IV Q6HP PRN; Protocol PRN Reason: PAIN/FEVER > 101 Last Infusion: 03/17/19 07:35 Dose: Infused Documented by: Potassium Phosphate 40 meq/ (Dextrose) 509.0909 mls @ 127.273 mls/hr IV ONCE ONE Stop: 03/17/19 12:51 Lorazepam (Ativan) 1 mg IV Q6HP PRN PRN Reason: ANXIETY/SEDATION Last Admin: 03/16/19 04:56 Dose: 1 mg Documented by: Metoclopramide HCl (Reglan) 10 mg IV Q6 [facility] Last Admin: 03/17/19 05:32 Dose: 10 mg Documented by: Nicotine (Nicoderm) 21 mg TOPICAL DAILY@1000 [facility] Last Admin: 03/17/19 08:23 Dose: 21 mg Documented by: Promethazine HCl (Phenergan) 12.5 mg IV Q4HP PRN PRN Reason: Nausea And Vomiting Sodium Chloride (Saline Flush) 10 ml IV UD PRN PRN Reason: Bleeding Sodium Chloride (Saline Flush) 10 ml IV Q12 [facility] Last Admin: 03/17/19 07:06 Dose: 10 ml Documented by: Sodium Chloride (Saline Flush) 10 ml IV Q8 [facility] Last Admin: 03/17/19 05:33 Dose: 10 ml Documented by: Medical - PN: A/P - Time Spent With Patient Total time spent is greater than 50% in coordination of care (as documented) at patient's floor/unit and/or counseling patient: 25 - 35 minutes (1) Nontraumatic splenic rupture Status: Acute Assessment and plan: * Splenic rupture with intraperitoneal hemorrhage status post surgery postop day 3 managed per surgery. Doing well * Postoperative ileus improving. Abdominal imaging today. * Mechanical ventilation for airway protection -ventilator liberated 03/13 3 AM. * Low phosphorus and potassium continue IV replacement * Acute blood loss anemia with hemorrhagic shock -status post 7 unit PRBC transfusion. Hemoglobin stable at 11. Off pressors. * Hyperkalemia secondary to massive hemolysis-resolved * Leukocytosis at 16.5. Likely secondary to intra-abdominal bleed/surgical stress/steroids. Off IV steroids * History of COPD continue bronchodilators/budesonide * Full code * Prophylaxis SCDs Plan * Abdominal imaging * Postop care per surgery * Potassium and phosphorus replacement Current Visit: Yes Procedures - Arterial Line Size (Gauge): 20
--- NOTE | 2019-03-17 10:22 | XRay Report ---
CLINICAL INFORMATION: Status post splenectomy. Abdominal pain and constipation TECHNIQUE: AP supine abdomen COMPARISON: Previous, preoperative CT scan dated 03/14/2019 FINDINGS: There is a surgical drain in the left upper quadrant. There are skin conor and a horizontal left upper quadrant abdominal incision. Bowel gas pattern is unremarkable. No evidence for significant constipation. No distended gas-filled small bowel. No evidence for mechanical small bowel obstruction. No pneumatosis. No biliary or portal venous gas. IMPRESSION: 1. Postoperative changes as above. Left upper quadrant surgical drain 2. Negative bowel gas pattern. No acute abnormality Interpreted and Authenticated by: Ace Ferreira 03/17/19
[2019-03-17] MEDS ORDERED: MAGNESIUM HYDROXIDE 30 ML ORAL.SUSP PO SCH (13:30)
[2019-03-17] MEDS ORDERED: DEXTROSE 50% 50 ML VIAL IV PRN (14:43)
[2019-03-17] MEDS ORDERED: PROMETHAZINE 25 MG/ML VIAL IV PRN (14:43)
--- NOTE | 2019-03-17 14:52 | General Surgery Progress Note ---
Subjective Patient reports: feels better, pain is less, tolerating liquids well, flatus, bowel movement, afebrile Narrative: Note initiated : 03/17/19 at 2:49 pm Service Date, if different from initiated Date: [] Patient: Armando Amos 63 y/o M admitted on 03/14/19 for chest pain. Chief Complaint: [Patient is doing well except for incisional pain. His respirations are stable at this time. Ventilation is adequate. He has complained of poor bowel movements but he is passing flatus. He denies nausea vomiting.] Objective Temp Pulse Resp BP Pulse Ox 97.9 F 58 L 19 138/88 95 03/17/19 08:01 03/17/19 06:01 03/17/19 14:01 03/17/19 14:01 03/17/19 14:01 - Additional Data Intake & Output - Last 24 hours: Intake & Output 03/15/19 03/16/19 03/17/19 03/18/19 05:59 05:59 05:59 05:59 Intake Total 6289 3208 1638 200 Output Total 3570 2567 2440 Balance 2719 641 -802 200 Weight 217 lb 12.8 oz 220 lb 3.2 oz 216 lb 4.8 oz 216 lb 4.8 oz - General physical appearance well developed, well nourished, moderate pain, obese - Eyes PERRL, normal ocular movement - ENT normal pinna, normal nares, normal mucosa, no hearing loss, no congestion - Neck no masses, no bruits, trachea midline, no lymphadenopathy, no venous distension - Respiratory normal expansion, normal respiratory effort, clear to auscultation - Cardiovascular Cardiovascular exam: Present: normal rate and rhythm, RRR, +S1, +S2. Absent: JVD, tachycardia - Abdomen tender (moderate incisional tenderness), surgical scars (incision looks good; MONIKA drainage is serous) - Integumentary no rash, no growths, no abnormal pigmentation - Neurologic normal coordination, normal sensation - Musculoskeletal normal gait, normal posture - Psychiatric oriented to time, oriented to person, oriented to place, speech is normal, memory intact - Labs 03/17/19 03:40 03/17/19 03:40 Diabetes panel 03/17/19 Range/Units 03:40 Sodium 142 (133-145) mmol/L Potassium 3.4 (3.3-5.1) mmol/L Chloride 102 (96-108) mmol/L Carbon Dioxide 32 H (22-30) mmol/L BUN 14 (8-23) mg/dl Creatinine 0.5 L (0.7-1.2) mg/dl Glucose 95 (70-105) mg/dL Calcium 7.9 L (8.6-10.4) mg/dl AST 15 (0-37) U/l ALT 16 (0-40) U/l Alkaline Phosphatase 34 L (39-117) U/L Total Protein 5.1 L (5.9-8.4) gm/dL Albumin 2.9 L (3.2-5.2) gm/dL Triglycerides 117 (<150) mg/dl Calcium panel 03/17/19 Range/Units 03:40 Calcium 7.9 L (8.6-10.4) mg/dl Phosphorus 1.9 L (2.7-4.5) mg/dL Albumin 2.9 L (3.2-5.2) gm/dL Pituitary panel 03/17/19 Range/Units 03:40 Sodium 142 (133-145) mmol/L Potassium 3.4 (3.3-5.1) mmol/L Chloride 102 (96-108) mmol/L Carbon Dioxide 32 H (22-30) mmol/L BUN 14 (8-23) mg/dl Creatinine 0.5 L (0.7-1.2) mg/dl Glucose 95 (70-105) mg/dL Calcium 7.9 L (8.6-10.4) mg/dl Adrenal panel 03/17/19 Range/Units 03:40 Sodium 142 (133-145) mmol/L Potassium 3.4 (3.3-5.1) mmol/L Chloride 102 (96-108) mmol/L Carbon Dioxide 32 H (22-30) mmol/L BUN 14 (8-23) mg/dl Creatinine 0.5 L (0.7-1.2) mg/dl Glucose 95 (70-105) mg/dL Calcium 7.9 L (8.6-10.4) mg/dl Total Bilirubin 0.3 (0.0-1.0) mg/dL AST 15 (0-37) U/l ALT 16 (0-40) U/l Alkaline Phosphatase 34 L (39-117) U/L Total Protein 5.1 L (5.9-8.4) gm/dL Albumin 2.9 L (3.2-5.2) gm/dL Assessment and Plan (1) Nontraumatic splenic rupture Status: Acute Assessment and plan: Patient remains clinically stable. Hemoglobin is stable No evidence of ongoing bleeding Start clear liquids Current Visit: Yes (2) COPD (chronic obstructive pulmonary disease) Status: Chronic Assessment and plan: Start inhalers as per home schedule Current Visit: No (3) Obstructive sleep apnea Status: Chronic Current Visit: No - Time Spent With Patient Total time spent is greater than 50% in coordination of care (as documented) at patient's floor/unit and/or counseling patient:
[2019-03-17] MEDS: MAGNESIUM HYDROXIDE 30 ML ORAL.SUSP PO SCH ×2 (20:50→23:30)
[2019-03-17] MEDS ORDERED: MAGNESIUM HYDROXIDE 30 ML ORAL.SUSP ONE (23:36)
[2019-03-18] MEDS: PIPERACILLIN SODIUM/TAZOBACTAM 3.375 GM in DEXTROSE 5% IN WATER 50 ML IV SCH ×5 (01:15→23:13)
[2019-03-18] MEDS: HYDROmorphone 2 MG/ML VIAL IV PRN ×5 (01:20→23:14)
[2019-03-18] MEDS: METOCLOPRAMIDE 10 MG/2 ML VIAL IV SCH ×5 (01:39→23:16)
[2019-03-18] MEDS: IPRATROPIUM/ALBUTEROL 3 ML AMPUL.NEB NEB PRN ×4 (01:42→14:14)
[2019-03-18 05:24] LABS: Hematocrit 29.6 % (41.0-55.0); Hemoglobin 9.9 g/dL (13.5-16.5); Mean Cell Volume 89.9 fL (80.0-100.0); Mean Corpuscular HGB Conc 33.4 g/dL (31.0-36.0); Mean Platelet Volume 7.2 fL (7.4-10.4); Platelet Count 380 K/mcL (140-440); RBC 3.29 M/mcL (4.50-5.90); WBC 16.1 K/mcL (4.5-11.0)
--- NOTE | 2019-03-18 05:24 | Internal Med Progress Note ---
Medical - PN: Subj Patient information: Note initiated : 03/18/19 at 5:20 am Service Date, if different from initiated Date: [] Patient: Armando Amos a 63 y/o M admitted on 03/14/19 for chest pain. Chief Complaint: [] Interval history: Mr. Amos is a 63 year old M with a known history of COPD managed by pulmonology Dr. Bell. Patient presents to the ER with progressive upper abdominal pain that started roughly 2 weeks prior to presentation that has gradually intensified. He denies abdominal trauma or nausea or emesis. He further denies hematemesis or bloody stool. He denies weight loss. He denies pain worsening with respiration however pain is made worse by eating. Initial work-up in the ER was consistent with retroperitoneal hemorrhage on CT. Surgery was consulted and recommended hospitalist service to admit for monitoring and observation. Patient initial hemoglobin was 12.4 with systolics around mid 90s.. Patient received crystalloids. Initial white count 14.3. INR 1 creatinine 0.8. Hospitalist service was subsequently consulted At the time of evaluation patient is slightly anxious. Systolics around low 90s. No tachycardia or diaphoresis. Patient able to answer most of the questio ns. He complains of abdominal discomfort with pain 6 out of 10 to 8 out of 10 epigastric area relating to the flank and back. He denies recent trauma, URI symptoms, prior history of similar episodes or hospitalization or peptic ulcer disease. He is mildly short of breath but consistent with his baseline COPD. 03/14 6.30 AM- Responded to nurse call early this morning with dropping systolics. Hematocrit down to 24 from 35. Systolics down to mid 70s. Start aggressive crystalloid resuscitation/massive transfusion protocol with 4 units PRBC/vasopressors. Surgery consulted for emergent surgical intervention. 03/14-2 PM Patient now postop expiratory restart me. Status post 6 units PRBC transfusion. Currently on mechanical ventilation. On pressors to maintain map at goal. ICU sedation for mechanical ventilation on fentanyl/Versed. Potassium at 6. Initiate hyperkalemia protocol. Continue mechanical ventilation per protocol. Continue diuresis/crystalloids 03/15-patient doing well. On mechanical ventilation with ICU sedation on Versed/fentanyl. MONIKA drain output 90 cc last shift. Urine output greater than 30 cc an hour. Map at goal. Off pressors. Anticipate extubation in 24 hours. No overnight events, fever. White count 14,000. Hemoglobin stable around 11.1. Potassium trended down from 6-4.3. Eyes no even. Will start diuresing later in the evening in anticipation of extubation. Remains in ileus. Family at bedside. Discussed plan of care with family and patient. 03/16-patient doing well. Off sedations. Respond to verbal commands. Rapid shallow breathing index 22. Blood gas favorable on 25% FiO2. Good urine output. Status post 1 unit PRBC transfusion last night. No overnight fever chills. MONIKA drain no clear output. Nontender nondistended abdomen. ventilator liberation today. Discussed with surgery option of nutrition in light of 48 hours of nutrition support. Replace electrolytes as indicated. De-escalate antibiotics if approved by surgery. Continue diuresis to improve lung compliance/third spacing lymphedema 03/17-patient doing well overnight. Now on room air. Complains of dull discomfort/distention. X-ray abdomen pending. Chest x-ray this morning unremarkable. White count 16.4. Potassium 3.4/phosphorus 1.9/hemoglobin 9.5. No overnight fever. T-max99.5. Family at bedside. No concerns expressed to nursing staff. 03/18-patient feeling about her better. Had 2 BMs yesterday. No overnight fever chills or abdominal pain. Denies abdominal distention. No nausea. No concerns per staff. Tolerating diet and advancing as per surgery. Anticipate discharge in the next 24 to 48 hours. Continue bronchodilators - Constitutional Vitals: Vital Signs Temp Pulse Resp BP Pulse Ox 97.4 F 56 L 16 135/88 96 03/18/19 03:53 03/18/19 03:53 03/18/19 03:53 03/18/19 03:53 03/18/19 03:53 Period Temp Pulse Resp BP Sys/Best Pulse Ox Last 24 Hr 97.4 F-97.9 F 56-69 12-22 131-149/82-96 95-100 Intake and Output 03/17/19 03/17/19 03/18/19 13:59 21:59 05:59 Intake Total 709.0909 890 50 Output Total 700 30 Balance 709.0909 190 20 Weight 216 lb 4.8 oz 215 lb Patient Weight 03/18/19 05:59 Weight 215 lb Intake & Output: Intake & Output 03/17/19 03/17/19 03/18/19 13:59 21:59 05:59 Intake Total 709.0909 890 50 Output Total 700 30 Balance 709.0909 190 20 Weight 216 lb 4.8 oz 215 lb Intake: IV 709.0909 50 50 Zosyn 3.375 gm In Dextrose 5% 100 50 50 in Water 50 ml @ 100 mls/hr IV Q6H [facility] Rx#:[id number] Potassium Phosphate 40 Meq In 509.0909 Dextrose 5% in Water 500 ml @ 127.273 mls/hr IV ONCE ONE Rx#: [id number] Oral 840 Output: Drainage 50 30 Left Abdomen MONIKA Drain 50 30 Void Amount 650 Other: Meal Dinner Percent of Meal Consumed 100% Feeding Ability Independent Urine Appearance Clear Clear Urine Color Bright Yellow Bright Yellow Bright Yellow Urine Odor Normal Strong Stool Size Small Moderate Stool Color Brown Dey Stool Consistency Loose Soft Loose # Voids 1 2 General appearance: no acute distress Exam: Alert oriented Nonlabored breathing No anxiety Nondistended abdomen MONIKA drain minimal output Medical - PN: Obj Da - Labs CBC & Chem 7: 03/17/19 03:40 03/17/19 03:40 Labs: Abnormal Lab Results 03/17/19 03/17/19 03/16/19 03:40 03:40 04:20 WBC 16.4 H RBC 3.16 L Hgb 9.5 L Hct 28.4 L POC Hct RDW Gran % Lymph % (Auto) 13.1 L [place] % (Auto) 12.8 H Gran # 12.2 H Lymph # (Auto) [place] # (Auto) 2.1 H Carbon Dioxide 32 H Creatinine 0.5 L 0.6 L Glucose 137 H POC Glucose Calcium 7.9 L 7.7 L POC WB Ioniz Calcium Phosphorus 1.9 L 2.0 L Alkaline Phosphatase 34 L 38 L Total Protein 5.1 L 5.2 L Albumin 2.9 L 2.8 L 03/16/19 03/15/19 03/15/19 04:20 21:35 18:29 WBC 14.6 H 14.6 H RBC 3.45 L 3.43 L Hgb 10.6 L 10.2 L Hct 30.8 L 29.6 L POC Hct 26.0 L RDW 14.7 H Gran % 90.3 H 86.1 H Lymph % (Auto) 5.5 L 6.2 L [place] % (Auto) Gran # 13.2 H 12.6 H Lymph # (Auto) 0.8 L 0.9 L [place] # (Auto) 1.1 H Carbon Dioxide Creatinine Glucose POC Glucose 120 H Calcium POC WB Ioniz Calcium 0.97 L Phosphorus Alkaline Phosphatase Total Protein Albumin 03/15/19 03/15/19 17:54 04:00 WBC RBC Hgb Hct POC Hct 24.0 L RDW Gran % Lymph % (Auto) [place] % (Auto) Gran # Lymph # (Auto) [place] # (Auto) Carbon Dioxide Creatinine Glucose 131 H POC Glucose 106 H Calcium 7.5 L POC WB Ioniz Calcium 1.04 L Phosphorus Alkaline Phosphatase 36 L Total Protein 4.9 L Albumin 2.7 L Meds: Medications Albuterol/Ipratropium (Duoneb) 3 ml NEB Q4HP PRN PRN Reason: Shortness Of Breath Last Admin: 03/18/19 01:42 Dose: 3 ml Documented by: Bisacodyl (Dulcolax) 10 mg [place] DAILYP PRN PRN Reason: Constipation Budesonide (Pulmicort) 0.5 mg NEB Q12 [facility] Last Admin: 03/17/19 21:41 Dose: Not Given Documented by: Dextrose (Dextrose 50%) 0 ml IV UD PRN PRN Reason: Hypoglycemia Hydromorphone HCl (Dilaudid) 0.25 mg IV Q4-6HP PRN PRN Reason: PAIN LEVEL > 6 Last Admin: 03/18/19 01:20 Dose: 0.25 mg Documented by: Acetaminophen (Ofirmev) 1,000 mg in 100 mls @ 200 mls/hr IV Q6HP PRN; Protocol PRN Reason: PAIN/FEVER > 101 Piperacillin Sod/Tazobactam (Sod 3.375 gm/ Dextrose) 50 mls @ 100 mls/hr IV Q6H [facility]; Protocol Last Infusion: 03/18/19 02:03 Dose: Infused Documented by: Metoclopramide HCl (Reglan) 10 mg IV Q6 [facility] Last Admin: 03/18/19 01:39 Dose: 10 mg Documented by: Nicotine (Nicoderm) 21 mg TOPICAL DAILY@1000 [facility] Promethazine HCl (Phenergan) 12.5 mg IV Q4HP PRN PRN Reason: Nausea And Vomiting Medical - PN: A/P - Time Spent With Patient Total time spent is greater than 50% in coordination of care (as documented) at patient's floor/unit and/or counseling patient: 15 - 24 minutes (1) Nontraumatic splenic rupture Status: Acute Assessment and plan: * Splenic rupture with intraperitoneal hemorrhage status post surgery postop day 4 managed per surgery. Doing well * Postoperative ileus resolved. On diet advancement per surgery * Mechanical ventilation for airway protection -ventilator liberated 03/16 AM. * Low phosphorus and potassium -resolved with replacement * Acute blood loss anemia with hemorrhagic shock -status post 7 unit PRBC transfusion. Hemoglobin stable * Hyperkalemia secondary to massive hemolysis-resolved * Leukocytosis -Improving. Secondary to steroids and stress due to intra- abdominal bleed and surgery * History of COPD continue bronchodilators/budesonide * Full code * Prophylaxis SCDs Plan * Continue bronchodilators * Postop care /diet advancement per surgery * PT OT * Anticipate SNF transfer Current Visit: Yes Procedures - Arterial Line Size (Gauge): 20
[2019-03-18 06:06] LABS: ALT/SGPT 15 U/l (0-40); AST/SGOT 11 U/l (0-37); Albumin/Globulin Ratio 1.5 (1.0-2.3); Alkaline Phosphatase 36 U/L (39-117); Bilirubin,Direct < 0.2 mg/dL (0.0-0.3); Bilirubin,Total 0.3 mg/dL (0.0-1.0); Blood Urea Nitrogen 9 mg/dl (8-23); Calcium 7.9 mg/dl (8.6-10.4); Carbon Dioxide 36 mmol/L (22-30); Chloride 100 mmol/L (96-108); Glomerular Filtration Rate 109; Glucose 90 mg/dL (70-105); Lactate Dehydrogenase 166 U/L (94-250); Phosphorous 2.6 mg/dL (2.7-4.5); Triglycerides 155 mg/dl (<150); Uric Acid 2.9 mg/dL (2.5-8.0)
[2019-03-18] MEDS: ACETAMINOPHEN 1,000 MG/100 ML BOTTLE IV PRN ×2 (06:31→16:29)
[2019-03-18 06:37] LABS: Eosinophils % (Manual) 1 % (0-7); Lymphocytes % 25 % (15-49); Monocytes % (Manual) 6 % (1-12); Platelet Estimate NORMAL (NORMAL); RBC Morphology NORMAL (NORMAL); Segmented Neutrophils % 68 % (38-78)
--- NOTE | 2019-03-18 06:43 | XRay Report ---
INDICATION: Postsurgical follow-up. Chest pain. Status post splenectomy TECHNIQUE: AP chest x-ray,portable semiupright COMPARISON: Previous chest x-rays dated 03/17/2019, 03/16/2019, 03/15/2019 FINDINGS:No change in right central venous catheter position. Mild linear density at the right cardiophrenic angle consistent with atelectasis. Lungs are otherwise negative. No parenchymal consolidation. Heart size and vascularity are normal. No pulmonary edema or pulmonary congestion IMPRESSION: 1. Mild right basilar atelectasis 2. Otherwise negative AP chest x-ray Interpreted and Authenticated by: Ace Ferreira 03/18/19
[2019-03-18] MEDS: BUDESONIDE 0.5 MG/2 ML AMPUL.NEB NEB SCH (07:15)
--- NOTE | 2019-03-18 09:55 | Internal Med Progress Note ---
Medical - PN: Subj Patient information: Note initiated : 03/18/19 at 9:53 am Service Date, if different from initiated Date: [] Patient: Armando Amos a 63 y/o M admitted on 03/14/19 for chest pain. Chief Complaint: [] Interval history: Mr. Amos is a 63 year old M with a known history of COPD managed by pulmonology Dr. Bell. Patient presents to the ER with progressive upper abdominal pain that started roughly 2 weeks prior to presentation that has gradually intensified. He denies abdominal trauma or nausea or emesis. He further denies hematemesis or bloody stool. He denies weight loss. He denies pain worsening with respiration however pain is made worse by eating. Initial work-up in the ER was consistent with retroperitoneal hemorrhage on CT. Surgery was consulted and recommended hospitalist service to admit for monitoring and observation. Patient initial hemoglobin was 12.4 with systolics around mid 90s.. Patient received crystalloids. Initial white count 14.3. INR 1 creatinine 0.8. Hospitalist service was subsequently consulted At the time of evaluation patient is slightly anxious. Systolics around low 90s. No tachycardia or diaphoresis. Patient able to answer most of the questio ns. He complains of abdominal discomfort with pain 6 out of 10 to 8 out of 10 epigastric area relating to the flank and back. He denies recent trauma, URI symptoms, prior history of similar episodes or hospitalization or peptic ulcer disease. He is mildly short of breath but consistent with his baseline COPD. 03/14 6.30 AM- Responded to nurse call early this morning with dropping systolics. Hematocrit down to 24 from 35. Systolics down to mid 70s. Start aggressive crystalloid resuscitation/massive transfusion protocol with 4 units PRBC/vasopressors. Surgery consulted for emergent surgical intervention. 03/14-2 PM Patient now postop expiratory restart me. Status post 6 units PRBC transfusion. Currently on mechanical ventilation. On pressors to maintain map at goal. ICU sedation for mechanical ventilation on fentanyl/Versed. Potassium at 6. Initiate hyperkalemia protocol. Continue mechanical ventilation per protocol. Continue diuresis/crystalloids 03/15-patient doing well. On mechanical ventilation with ICU sedation on Versed/fentanyl. MONIKA drain output 90 cc last shift. Urine output greater than 30 cc an hour. Map at goal. Off pressors. Anticipate extubation in 24 hours. No overnight events, fever. White count 14,000. Hemoglobin stable around 11.1. Potassium trended down from 6-4.3. Eyes no even. Will start diuresing later in the evening in anticipation of extubation. Remains in ileus. Family at bedside. Discussed plan of care with family and patient. 03/16-patient doing well. Off sedations. Respond to verbal commands. Rapid shallow breathing index 22. Blood gas favorable on 25% FiO2. Good urine output. Status post 1 unit PRBC transfusion last night. No overnight fever chills. MONIKA drain no clear output. Nontender nondistended abdomen. ventilator liberation today. Discussed with surgery option of nutrition in light of 48 hours of nutrition support. Replace electrolytes as indicated. De-escalate antibiotics if approved by surgery. Continue diuresis to improve lung compliance/third spacing lymphedema 03/17-patient doing well overnight. Now on room air. Complains of dull discomfort/distention. X-ray abdomen pending. Chest x-ray this morning unremarkable. White count 16.4. Potassium 3.4/phosphorus 1.9/hemoglobin 9.5. No overnight fever. T-max99.5. Family at bedside. No concerns expressed to nursing staff. 03/18-patient feeling about her better. Had 2 BMs yesterday. No overnight fever chills or abdominal pain. Denies abdominal distention. No nausea. No concerns per staff. Tolerating diet and advancing as per surgery. Anticipate discharge in the next 24 to 48 hours. Continue bronchodilators - Constitutional Vitals: Vital Signs Temp Pulse Resp BP Pulse Ox 97.3 F 58 L 16 150/93 95 03/18/19 07:56 03/18/19 07:56 03/18/19 07:56 03/18/19 07:56 03/18/19 07:56 Period Temp Pulse Resp BP Sys/Best Pulse Ox Last 24 Hr 97.3 F-97.7 F 56-69 14- 132-150/82-93 92-99 Intake and Output 03/17/19 03/18/19 03/18/19 21:59 05:59 13:59 Intake Total 890 50 100 Output Total 700 30 Balance 190 20 100 Weight 97.522 kg Intake & Output: Intake & Output 03/17/19 03/18/19 03/18/19 21:59 05:59 13:59 Intake Total 890 50 100 Output Total 700 30 Balance 190 20 100 Weight 97.522 kg Intake: IV 50 50 100 Zosyn 3.375 gm In Dextrose 5% 50 50 in Water 50 ml @ 100 mls/hr IV Q6H [facility] Rx#:[id number] Oral 840 Output: Drainage 50 30 Left Abdomen MONIKA Drain 50 30 Void Amount 650 Other: Meal Dinner Percent of Meal Consumed 100% Feeding Ability Independent Urine Appearance Clear Urine Color Bright Yellow Bright Yellow Urine Odor Strong Stool Size Small Moderate Stool Color Brown Dey Stool Consistency Loose Soft Loose # Voids 1 2 Exam: General: Alert, Awake, No acute Distress Eyes/N/T: EOMI, Head/Neck: neck supple, CV: RRR, No murmurs, Pulm: Clear b/l, no wheezing/rhonchi/rales Abd: soft, nontender, +BS x4, MONIKA drain in place Ext: no clubbing/cyanosis/edema Neuro: Alert, no focal deficits, moves all extremities, Skin: warm/dry Medical - PN: Obj Da - Labs CBC & Chem 7: 03/18/19 04:33 03/18/19 04:33 Labs: Abnormal Lab Results 03/18/19 03/18/19 03/17/19 04:33 04:33 03:40 WBC 16.1 H RBC 3.29 L Hgb 9.9 L Hct 29.6 L POC Hct RDW MPV 7.2 L Gran % Lymph % (Auto) [place] % (Auto) Gran # Lymph # (Auto) [place] # (Auto) Carbon Dioxide 36 H 32 H Anion Gap 5.0 L Creatinine 0.6 L 0.5 L Glucose POC Glucose Calcium 7.9 L 7.9 L POC WB Ioniz Calcium Phosphorus 2.6 L 1.9 L Alkaline Phosphatase 36 L 34 L Total Protein 5.0 L 5.1 L Albumin 3.0 L 2.9 L Globulin 2.0 L Triglycerides 155 H 03/17/19 03/16/19 03/16/19 03:40 04:20 04:20 WBC 16.4 H 14.6 H RBC 3.16 L 3.45 L Hgb 9.5 L 10.6 L Hct 28.4 L 30.8 L POC Hct RDW 14.7 H MPV Gran % 90.3 H Lymph % (Auto) 13.1 L 5.5 L [place] % (Auto) 12.8 H Gran # 12.2 H 13.2 H Lymph # (Auto) 0.8 L [place] # (Auto) 2.1 H Carbon Dioxide Anion Gap Creatinine 0.6 L Glucose 137 H POC Glucose Calcium 7.7 L POC WB Ioniz Calcium Phosphorus 2.0 L Alkaline Phosphatase 38 L Total Protein 5.2 L Albumin 2.8 L Globulin Triglycerides 03/15/19 03/15/19 03/15/19 21:35 18:29 17:54 WBC 14.6 H RBC 3.43 L Hgb 10.2 L Hct 29.6 L POC Hct 26.0 L 24.0 L RDW MPV Gran % 86.1 H Lymph % (Auto) 6.2 L [place] % (Auto) Gran # 12.6 H Lymph # (Auto) 0.9 L [place] # (Auto) 1.1 H Carbon Dioxide Anion Gap Creatinine Glucose POC Glucose 120 H 106 H Calcium POC WB Ioniz Calcium 0.97 L 1.04 L Phosphorus Alkaline Phosphatase Total Protein Albumin Globulin Triglycerides Meds: Medications Albuterol/Ipratropium (Duoneb) 3 ml NEB Q4HP PRN PRN Reason: Shortness Of Breath Last Admin: 03/18/19 07:15 Dose: 3 ml Documented by: Bisacodyl (Dulcolax) 10 mg SC DAILYP PRN PRN Reason: Constipation Budesonide (Pulmicort) 0.5 mg NEB Q12 JENNY Last Admin: 03/18/19 07:15 Dose: 0.5 mg Documented by: Dextrose (Dextrose 50%) 0 ml IV UD PRN PRN Reason: Hypoglycemia Hydromorphone HCl (Dilaudid) 0.25 mg IV Q4-6HP PRN PRN Reason: PAIN LEVEL > 6 Last Admin: 03/18/19 06:31 Dose: 0.25 mg Documented by: Acetaminophen (Ofirmev) 1,000 mg in 100 mls @ 200 mls/hr IV Q6HP PRN; Protocol PRN Reason: PAIN/FEVER > 101 Last Infusion: 03/18/19 07:22 Dose: Infused Documented by: Piperacillin Sod/Tazobactam (Sod 3.375 gm/ Dextrose) 50 mls @ 100 mls/hr IV Q6H JENNY; Protocol Last Admin: 03/18/19 06:00 Dose: 100 mls/hr Documented by: Metoclopramide HCl (Reglan) 10 mg IV Q6 JENNY Last Admin: 03/18/19 05:59 Dose: 10 mg Documented by: Nicotine (Nicoderm) 21 mg TOPICAL DAILY@1000 JENNY Promethazine HCl (Phenergan) 12.5 mg IV Q4HP PRN PRN Reason: Nausea And Vomiting Medical - PN: A/P - Time Spent With Patient Total time spent is greater than 50% in coordination of care (as documented) at patient's floor/unit and/or counseling patient: - Narrative A/P Narrative: A: *Splenic rupture, nontraumatic w/intraperitoneal hemorrhage: 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 -stable *Hyperkalemia: 2/2 massive hemolysis, resolved *Postoperative ileus: resolved *Mechanical ventilation for airway protection -ventilator liberated 03/16 AM. *Low phosphorus/potassium: resolved *Leukocytosis: 2/2 splenectomy/steroids/stress due to intra-abdominal bleed and surgery -platelets still wnl *COPD ( ): Plan: -Postop care /diet advancement per surgery -continue home bronchodilators/budesonide -PT OT -Anticipate SNF transfer -post-splenectomy vaccines for encapsulated organisms per PCP -ppx: SCD full code Procedures - Arterial Line Size (Gauge): 20
[2019-03-18] MEDS: NICOTINE 21 MG PATCH TOPICAL SCH (10:53)
--- NOTE | 2019-03-18 12:13 | General Surgery Progress Note ---
Subjective Patient reports: feels better, pain is less, tolerating a regular diet, flatus, bowel movement, shortness of breath, afebrile Narrative: Note initiated : 03/18/19 at 12:08 pm Service Date, if different from initiated Date: [] Patient: Armando Amos 63 y/o M admitted on 03/14/19 for chest pain. Chief Complaint: [patient states that he feels better but he still has significant shortness of breath. He is been ambulating with therapy but states that he feels winded. He has significant dyspnea and some wheezing. His abdominal pain is improved. MONIKA drainage is serous.white blood count 16 point, hemoglobin 9.9, hematocrit 29.6.] Objective Temp Pulse Resp BP Pulse Ox 97.3 F 58 L 16 150/93 95 03/18/19 07:56 03/18/19 07:56 03/18/19 07:56 03/18/19 07:56 03/18/19 07:56 - Additional Data Intake & Output - Last 24 hours: Intake & Output 03/16/19 03/17/19 03/18/19 03/19/19 05:59 05:59 05:59 05:59 Intake Total 3208 1638 1649.0909 100 Output Total 2567 2440 730 Balance 641 -109 131.3540 100 Weight 220 lb 3.2 oz 216 lb 4.8 oz 215 lb - General physical appearance moderate distress, moderate pain - Eyes PERRL, normal ocular movement - ENT normal pinna, normal nares, normal mucosa, no hearing loss, no congestion - Neck no masses, no bruits, trachea midline, no lymphadenopathy, no venous distension - Respiratory other (decreased breath sounds bilaterally with scattered wheezes in both lung mercer) - Cardiovascular Cardiovascular exam: Present: normal rate and rhythm, RRR, +S1, +S2. Absent: JVD, tachycardia - Abdomen tender (. Tenderness of incision; active bowel sounds; incision is healing uneventfully; serosanguineous drainage), bowel sounds (present), surgical scars (none), masses (none) - Integumentary no rash, no growths, no abnormal pigmentation - Neurologic normal coordination, normal sensation - Musculoskeletal normal gait, normal posture - Psychiatric oriented to time, oriented to person, oriented to place, speech is normal, memory intact - Labs 03/18/19 04:33 03/18/19 04:33 Diabetes panel 03/18/19 Range/Units 04:33 Sodium 141 (133-145) mmol/L Potassium 3.5 (3.3-5.1) mmol/L Chloride 100 (96-108) mmol/L Carbon Dioxide 36 H (22-30) mmol/L BUN 9 (8-23) mg/dl Creatinine 0.6 L (0.7-1.2) mg/dl Glucose 90 (70-105) mg/dL Calcium 7.9 L (8.6-10.4) mg/dl AST 11 (0-37) U/l ALT 15 (0-40) U/l Alkaline Phosphatase 36 L (39-117) U/L Total Protein 5.0 L (5.9-8.4) gm/dL Albumin 3.0 L (3.2-5.2) gm/dL Triglycerides 155 H (<150) mg/dl Calcium panel 03/18/19 Range/Units 04:33 Calcium 7.9 L (8.6-10.4) mg/dl Phosphorus 2.6 L (2.7-4.5) mg/dL Albumin 3.0 L (3.2-5.2) gm/dL Pituitary panel 03/18/19 Range/Units 04:33 Sodium 141 (133-145) mmol/L Potassium 3.5 (3.3-5.1) mmol/L Chloride 100 (96-108) mmol/L Carbon Dioxide 36 H (22-30) mmol/L BUN 9 (8-23) mg/dl Creatinine 0.6 L (0.7-1.2) mg/dl Glucose 90 (70-105) mg/dL Calcium 7.9 L (8.6-10.4) mg/dl Adrenal panel 03/18/19 Range/Units 04:33 Sodium 141 (133-145) mmol/L Potassium 3.5 (3.3-5.1) mmol/L Chloride 100 (96-108) mmol/L Carbon Dioxide 36 H (22-30) mmol/L BUN 9 (8-23) mg/dl Creatinine 0.6 L (0.7-1.2) mg/dl Glucose 90 (70-105) mg/dL Calcium 7.9 L (8.6-10.4) mg/dl Total Bilirubin 0.3 (0.0-1.0) mg/dL AST 11 (0-37) U/l ALT 15 (0-40) U/l Alkaline Phosphatase 36 L (39-117) U/L Total Protein 5.0 L (5.9-8.4) gm/dL Albumin 3.0 L (3.2-5.2) gm/dL Assessment and Plan (1) Nontraumatic splenic rupture Status: Acute Assessment and plan: Patient remains clinically stable. Hemoglobin is stable No evidence of ongoing bleeding Advance diet Current Visit: Yes (2) COPD (chronic obstructive pulmonary disease) Status: Chronic Assessment and plan: Start inhalers as per home schedule Current Visit: No (3) Obstructive sleep apnea Status: Chronic Current Visit: No - Time Spent With Patient Total time spent is greater than 50% in coordination of care (as documented) at patient's floor/unit and/or counseling patient:
[2019-03-18] MEDS: HYDROcodone/APAP 5/325MG TABLET PO PRN ×3 (12:58→23:14)
[2019-03-18] MEDS ORDERED: ALBUTEROL SULFATE 1 PUFF INHALER INH PRN (13:12)
[2019-03-18] MEDS: ALBUTEROL SULFATE 2.5 MG/3 ML NEBULIZER NEB PRN (18:44)
[2019-03-18] MEDS ORDERED: FLUTICASONE HFA 220MCG INHALER INH SCH (21:00)
[2019-03-18] MEDS: SALMETEROL INH SCH (21:32)
[2019-03-18] MEDS: FLUTICASONE INH SCH (21:32)
[2019-03-19] MEDS: HYDROcodone/APAP 5/325MG TABLET PO PRN ×4 (04:10→18:15)
[2019-03-19] MEDS: ALBUTEROL SULFATE 2.5 MG/3 ML NEBULIZER NEB PRN ×4 (04:15→18:47)
[2019-03-19] MEDS: METOCLOPRAMIDE 10 MG/2 ML VIAL IV SCH ×4 (05:42→23:52)
[2019-03-19] MEDS: PIPERACILLIN SODIUM/TAZOBACTAM 3.375 GM in DEXTROSE 5% IN WATER 50 ML IV SCH ×4 (05:48→23:52)
--- NOTE | 2019-03-19 08:03 | Internal Med Progress Note ---
Medical - PN: Subj Patient information: Note initiated : 03/19/19 at 8:00 am Service Date, if different from initiated Date: [] Patient: Armando Amos a 63 y/o M admitted on 03/14/19 for chest pain. Chief Complaint: [] Interval history: Mr. Amos is a 63 year old M with a known history of COPD managed by pulmonology Dr. Bell. Patient presents to the ER with progressive upper abdominal pain that started roughly 2 weeks prior to presentation that has gradually intensified. He denies abdominal trauma or nausea or emesis. He further denies hematemesis or bloody stool. He denies weight loss. He denies pain worsening with respiration however pain is made worse by eating. Initial work-up in the ER was consistent with retroperitoneal hemorrhage on CT. Surgery was consulted and recommended hospitalist service to admit for monitoring and observation. Patient initial hemoglobin was 12.4 with systolics around mid 90s.. Patient received crystalloids. Initial white count 14.3. INR 1 creatinine 0.8. Hospitalist service was subsequently consulted At the time of evaluation patient is slightly anxious. Systolics around low 90s. No tachycardia or diaphoresis. Patient able to answer most of the questio ns. He complains of abdominal discomfort with pain 6 out of 10 to 8 out of 10 epigastric area relating to the flank and back. He denies recent trauma, URI symptoms, prior history of similar episodes or hospitalization or peptic ulcer disease. He is mildly short of breath but consistent with his baseline COPD. 03/14 6.30 AM- Responded to nurse call early this morning with dropping systolics. Hematocrit down to 24 from 35. Systolics down to mid 70s. Start aggressive crystalloid resuscitation/massive transfusion protocol with 4 units PRBC/vasopressors. Surgery consulted for emergent surgical intervention. 03/14-2 PM Patient now postop expiratory restart me. Status post 6 units PRBC transfusion. Currently on mechanical ventilation. On pressors to maintain map at goal. ICU sedation for mechanical ventilation on fentanyl/Versed. Potassium at 6. Initiate hyperkalemia protocol. Continue mechanical ventilation per protocol. Continue diuresis/crystalloids 03/15-patient doing well. On mechanical ventilation with ICU sedation on Versed/fentanyl. MONIKA drain output 90 cc last shift. Urine output greater than 30 cc an hour. Map at goal. Off pressors. Anticipate extubation in 24 hours. No overnight events, fever. White count 14,000. Hemoglobin stable around 11.1. Potassium trended down from 6-4.3. Eyes no even. Will start diuresing later in the evening in anticipation of extubation. Remains in ileus. Family at bedside. Discussed plan of care with family and patient. 03/16-patient doing well. Off sedations. Respond to verbal commands. Rapid shallow breathing index 22. Blood gas favorable on 25% FiO2. Good urine output. Status post 1 unit PRBC transfusion last night. No overnight fever chills. MONIKA drain no clear output. Nontender nondistended abdomen. ventilator liberation today. Discussed with surgery option of nutrition in light of 48 hours of nutrition support. Replace electrolytes as indicated. De-escalate antibiotics if approved by surgery. Continue diuresis to improve lung compliance/third spacing lymphedema 03/17-patient doing well overnight. Now on room air. Complains of dull discomfort/distention. X-ray abdomen pending. Chest x-ray this morning unremarkable. White count 16.4. Potassium 3.4/phosphorus 1.9/hemoglobin 9.5. No overnight fever. T-max99.5. Family at bedside. No concerns expressed to nursing staff. 03/18-patient feeling about her better. Had 2 BMs yesterday. No overnight fever chills or abdominal pain. Denies abdominal distention. No nausea. No concerns per staff. Tolerating diet and advancing as per surgery. Anticipate discharge in the next 24 to 48 hours. Continue bronchodilators 03/19 No overnight events. No new complaints. Has chronic dyspnea. He uses multiple inhalers at home but is not on home oxygen. Review of Systems: denies headache/fever/chills/nausea/vomiting/chest pain/cough/dyspnea/diarrhea. Otherwise see above. - Constitutional Vitals: Vital Signs Temp Pulse Resp BP Pulse Ox 97.7 F 64 16 132/80 96 03/19/19 04:17 03/19/19 04:17 03/19/19 04:17 03/19/19 04:17 03/19/19 04:17 Period Temp Pulse Resp BP Sys/Best Pulse Ox Last 24 Hr 97.7 F-98.2 F 63-98 16-18 117-141/74-86 86-96 Intake and Output 1003/19/19 03/19/19 21:59 05:59 13:59 Intake Total 650 650 Output Total 80 1450 200 Balance 570 -800 -200 Weight 95.708 kg Intake & Output: Intake & Output 03/18/19 03/19/19 03/19/19 21:59 05:59 13:59 Intake Total 650 650 Output Total 80 1450 200 Balance 570 -800 -200 Weight 95.708 kg Intake: IV 150 50 Zosyn 3.375 gm In Dextrose 5% 50 50 in Water 50 ml @ 100 mls/hr IV Q6H [facility] Rx#:[id number] Oral 500 600 Output: Drainage 80 Left Abdomen MONIKA Drain 80 Void Amount 1450 200 Other: Meal Dinner Percent of Meal Consumed 75% Urine Appearance Clear Clear Urine Color Bright Yellow Bright Yellow Exam: General: Alert, Awake, No acute Distress Eyes/N/T: EOMI, Head/Neck: neck supple, CV: RRR, No murmurs, Pulm: Clear b/l, no wheezing/rhonchi/rales Abd: soft, nontender, +BS x4, MONIKA drain in place Ext: no clubbing/cyanosis/edema Neuro: Alert, no focal deficits, moves all extremities, Skin: warm/dry Medical - PN: Obj Da - Labs CBC & Chem 7: 03/19/19 08:15 03/18/19 04:33 Labs: Abnormal Lab Results 03/18/19 03/18/19 03/17/19 04:33 04:33 03:40 WBC 16.1 H RBC 3.29 L Hgb 9.9 L Hct 29.6 L MPV 7.2 L Lymph % (Auto) [place] % (Auto) Gran # [place] # (Auto) Carbon Dioxide 36 H 32 H Anion Gap 5.0 L Creatinine 0.6 L 0.5 L Calcium 7.9 L 7.9 L Phosphorus 2.6 L 1.9 L Alkaline Phosphatase 36 L 34 L Total Protein 5.0 L 5.1 L Albumin 3.0 L 2.9 L Globulin 2.0 L Triglycerides 155 H 03/17/19 03:40 WBC 16.4 H RBC 3.16 L Hgb 9.5 L Hct 28.4 L MPV Lymph % (Auto) 13.1 L [place] % (Auto) 12.8 H Gran # 12.2 H [place] # (Auto) 2.1 H Carbon Dioxide Anion Gap Creatinine Calcium Phosphorus Alkaline Phosphatase Total Protein Albumin Globulin Triglycerides Meds: Medications Hydrocodone Bitart/Acetaminophen ([place] 5/325mg) 2 tab PO Q4HP PRN PRN Reason: PAIN LEVEL 3-6 Last Admin: 03/19/19 04:10 Dose: 2 tab Documented by: Albuterol Sulfate (Ventolin) 2 puff INH Q4HP PRN PRN Reason: Shortness Of Breath Albuterol Sulfate (Ventolin) 2.5 mg NEB Q4HP PRN PRN Reason: Shortness Of Breath Last Admin: 03/19/19 04:15 Dose: 2.5 mg Documented by: Bisacodyl (Dulcolax) 10 mg MD DAILYP PRN PRN Reason: Constipation Dextrose (Dextrose 50%) 0 ml IV UD PRN PRN Reason: Hypoglycemia Hydromorphone HCl (Dilaudid) 0.25 mg IV Q4-6HP PRN PRN Reason: PAIN LEVEL > 6 Last Admin: 03/18/19 23:14 Dose: 0.25 mg Documented by: Acetaminophen (Ofirmev) 1,000 mg in 100 mls @ 200 mls/hr IV Q6HP PRN; Protocol PRN Reason: PAIN/FEVER > 101 Last Infusion: 03/18/19 17:00 Dose: Infused Documented by: Piperacillin Sod/Tazobactam (Sod 3.375 gm/ Dextrose) 50 mls @ 100 mls/hr IV Q6H [facility]; Protocol Last Admin: 03/19/19 05:48 Dose: 100 mls/hr Documented by: Metoclopramide HCl (Reglan) 10 mg IV Q6 [facility] Last Admin: 03/19/19 05:42 Dose: 10 mg Documented by: Nicotine (Nicoderm) 21 mg TOPICAL DAILY@1000 JENNY Last Admin: 03/18/19 10:53 Dose: 21 mg Documented by: Fluticasone/Salmeterol Hfa 230/21 Inhaler 1 dose INH BID [facility] Last Admin: 03/18/19 21:32 Dose: 1 dose Documented by: Promethazine HCl (Phenergan) 12.5 mg IV Q4HP PRN PRN Reason: Nausea And Vomiting Tiotropium [place] (Spiriva) 18 mcg INH DAILY [facility] Medical - PN: A/P - Time Spent With Patient Total time spent is greater than 50% in coordination of care (as documented) at patient's floor/unit and/or counseling patient: - Narrative A/P Narrative: A: *Splenic rupture, nontraumatic w/intraperitoneal hemorrhage: 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 -stable *Hyperkalemia: 2/2 massive hemolysis, resolved *Postoperative ileus: resolved *Mechanical ventilation for airway protection -ventilator liberated 03/16 AM. *Low phosphorus/potassium: resolved *Leukocytosis/thrombocytosis: 2/2 splenectomy/steroids/stress due to intra- abdominal bleed and surgery -leukocytosis improved, no bandemia, platelets haven't peaked yet in post- splenectomy state *COPD (does not use home O2): Plan: -Postop care /diet advancement per surgery -d/c zosyn -continue home bronchodilators/budesonide -PT OT -Anticipate SNF transfer -post-splenectomy vaccines for encapsulated organisms per PCP -ppx: SCD full code Procedures - Arterial Line Size (Gauge): 20
[2019-03-19 08:46] LABS: Basophils # (Auto) 0 K/mcL (0.0-0.3); Basophils % (Auto) 0.3 % (0.0-2.0); Eosinophils # (Auto) 0.8 K/mcL (0.0-0.7); Eosinophils % (Auto) 5.6 % (0.0-7.0); Granulocytes % (Auto) 63.8 % (38.0-78.0); Hematocrit 33.8 % (41.0-55.0); Hemoglobin 11.2 g/dL (13.5-16.5); Lymphocytes # (Auto) 2.8 K/mcL (1.5-4.8); Lymphocytes % (Auto) 20.2 % (15.5-49.0); Mean Cell Volume 90.8 fL (80.0-100.0); Mean Platelet Volume 7.1 fL (7.4-10.4); Monocytes # (Auto) 1.4 K/mcL (0.1-0.9); Monocytes % (Auto) 10.1 % (1.0-12.0); Platelet Count 495 K/mcL (140-440); RBC 3.72 M/mcL (4.50-5.90); Red Cell Distribution Width 13.4 % (11.5-14.5); WBC 13.8 K/mcL (4.5-11.0)
[2019-03-19 09:09] LABS: ALT/SGPT 16 U/l (0-40); AST/SGOT 13 U/l (0-37); Albumin 3.2 gm/dL (3.2-5.2); Albumin/Globulin Ratio 1.3 (1.0-2.3); Alkaline Phosphatase 42 U/L (39-117); Bilirubin,Direct < 0.2 mg/dL (0.0-0.3); Bilirubin,Total 0.3 mg/dL (0.0-1.0); Blood Urea Nitrogen 6 mg/dl (8-23); Calcium 8.7 mg/dl (8.6-10.4); Carbon Dioxide 36 mmol/L (22-30); Chloride 96 mmol/L (96-108); Globulin 2.4 gm/dL (2.2-3.7); Glomerular Filtration Rate 117; Glucose 84 mg/dL (70-105); Lactate Dehydrogenase 179 U/L (94-250); Phosphorous 3.5 mg/dL (2.7-4.5); Triglycerides 136 mg/dl (<150); Uric Acid 2.4 mg/dL (2.5-8.0)
[2019-03-19] MEDS: SALMETEROL INH SCH ×2 (09:38→21:18)
[2019-03-19] MEDS: FLUTICASONE INH SCH ×2 (09:38→21:18)
[2019-03-19] MEDS: NICOTINE 21 MG PATCH TOPICAL SCH (09:39)
[2019-03-19] MEDS: TIOTROPIUM BROMIDE 18 MCG INHALANT INH SCH (09:39)
--- NOTE | 2019-03-19 10:03 | XRay Report ---
INDICATION: Chest pain TECHNIQUE: AP chest x-ray,portable upright COMPARISON: Previous chest x-rays dated 03/18/2019, 03/17/2019, 03/16/2019 FINDINGS:Right central venous catheter is been removed Mild right basilar parenchymal infiltrate most consistent with atelectasis. No parenchymal consolidation. Heart size and vascularity are within normal limits. No evidence for failure. IMPRESSION: 1. Mild right basilar parenchymal density consistent with atelectasis 2. Status post removal of right central venous catheter Interpreted and Authenticated by: Ace Ferreira 03/19/19
--- NOTE | 2019-03-19 11:03 | General Surgery Progress Note ---
Subjective Patient reports: feels better, still having pain, pain is less, tolerating a regular diet, flatus, bowel movement, shortness of breath, afebrile Narrative: Note initiated : 03/19/19 at 11:01 am Service Date, if different from initiated Date: [] Patient: Armando Amos 63 y/o M admitted on 03/14/19 for chest pain. Chief Complaint: [Patient is stable and improved. He has dyspnea but he is able to lie flat. He still needs oxygen at 1-2 L/m to maintain his saturation above 90%. He is able to ambulate with oxygen supplementation. He denies chest pain. His abdominal pain is improved. He is having good bowel movements and is having flatus. MONIKA drainage is serous. White blood count 13.8, hemoglobin 11. 2, hematocrit 33.8, BUN 6, creatinine 0.5.] Objective Temp Pulse Resp BP Pulse Ox 97.5 F 74 16 122/75 94 03/19/19 08:00 03/19/19 08:00 03/19/19 08:00 03/19/19 08:00 03/19/19 08:53 - Additional Data Intake & Output - Last 24 hours: Intake & Output 03/17/19 03/18/19 03/19/19 03/20/19 05:59 05:59 05:59 05:59 Intake Total 1638 1649.0909 1500 Output Total 2440 730 1530 200 Balance -947 784.5857 -30 -200 Weight 216 lb 4.8 oz 215 lb 211 lb - General physical appearance well developed, well nourished, no distress, moderate pain - Eyes PERRL, normal ocular movement - ENT normal pinna, normal nares, normal mucosa, no hearing loss, no congestion - Neck no masses, no bruits, trachea midline, no lymphadenopathy, no venous distension - Respiratory other (much improved inspiratory effort;) - Cardiovascular Cardiovascular exam: Present: normal rate and rhythm, +S1, +S2. Absent: JVD, RRR, tachycardia - Abdomen tender (moderate tenderness over incision; active bowel sounds; serous MONIKA drainage), bowel sounds (present), surgical scars (none), masses (none) - Integumentary no rash, no growths, no abnormal pigmentation - Neurologic normal coordination, normal sensation - Musculoskeletal normal gait, normal posture - Psychiatric oriented to time (this is no prescriptions), oriented to person, oriented to place, speech is normal, memory intact - Labs 03/19/19 08:15 03/19/19 08:15 Diabetes panel 03/19/19 Range/Units 08:15 Sodium 140 (133-145) mmol/L Potassium 3.7 (3.3-5.1) mmol/L Chloride 96 (96-108) mmol/L Carbon Dioxide 36 H (22-30) mmol/L BUN 6 L (8-23) mg/dl Creatinine 0.5 L (0.7-1.2) mg/dl Glucose 84 (70-105) mg/dL Calcium 8.7 (8.6-10.4) mg/dl AST 13 (0-37) U/l ALT 16 (0-40) U/l Alkaline Phosphatase 42 (39-117) U/L Total Protein 5.6 L (5.9-8.4) gm/dL Albumin 3.2 (3.2-5.2) gm/dL Triglycerides 136 (<150) mg/dl Calcium panel 03/19/19 Range/Units 08:15 Calcium 8.7 (8.6-10.4) mg/dl Phosphorus 3.5 (2.7-4.5) mg/dL Albumin 3.2 (3.2-5.2) gm/dL Pituitary panel 03/19/19 Range/Units 08:15 Sodium 140 (133-145) mmol/L Potassium 3.7 (3.3-5.1) mmol/L Chloride 96 (96-108) mmol/L Carbon Dioxide 36 H (22-30) mmol/L BUN 6 L (8-23) mg/dl Creatinine 0.5 L (0.7-1.2) mg/dl Glucose 84 (70-105) mg/dL Calcium 8.7 (8.6-10.4) mg/dl Adrenal panel 03/19/19 Range/Units 08:15 Sodium 140 (133-145) mmol/L Potassium 3.7 (3.3-5.1) mmol/L Chloride 96 (96-108) mmol/L Carbon Dioxide 36 H (22-30) mmol/L BUN 6 L (8-23) mg/dl Creatinine 0.5 L (0.7-1.2) mg/dl Glucose 84 (70-105) mg/dL Calcium 8.7 (8.6-10.4) mg/dl Total Bilirubin 0.3 (0.0-1.0) mg/dL AST 13 (0-37) U/l ALT 16 (0-40) U/l Alkaline Phosphatase 42 (39-117) U/L Total Protein 5.6 L (5.9-8.4) gm/dL Albumin 3.2 (3.2-5.2) gm/dL Assessment and Plan (1) Nontraumatic splenic rupture Status: Acute Assessment and plan: Patient remains clinically stable. Hemoglobin is stable Discontinue Benjamin-Rosenberg drain Advance diet Current Visit: Yes (2) COPD (chronic obstructive pulmonary disease) Status: Chronic Assessment and plan: Start inhalers as per home schedule Current Visit: No (3) Obstructive sleep apnea Status: Chronic Current Visit: No - Time Spent With Patient Total time spent is greater than 50% in coordination of care (as documented) at patient's floor/unit and/or counseling patient:
[2019-03-20] MEDS: HYDROcodone/APAP 5/325MG TABLET PO PRN ×4 (04:14→21:58)
[2019-03-20] MEDS: PIPERACILLIN SODIUM/TAZOBACTAM 3.375 GM in DEXTROSE 5% IN WATER 50 ML IV SCH (05:19)
[2019-03-20] MEDS: METOCLOPRAMIDE 10 MG/2 ML VIAL IV SCH (05:19)
[2019-03-20] MEDS: ALBUTEROL SULFATE 2.5 MG/3 ML NEBULIZER NEB PRN ×4 (05:24→21:36)
--- NOTE | 2019-03-20 08:03 | Internal Med Progress Note ---
Medical - PN: Subj Patient information: Note initiated : 03/20/19 at 8:01 am Service Date, if different from initiated Date: [] Patient: Armando Amos a 63 y/o M admitted on 03/14/19 for chest pain. Chief Complaint: [] Interval history: Mr. Amos is a 63 year old M with a known history of COPD managed by pulmonology Dr. Bell. Patient presents to the ER with progressive upper abdominal pain that started roughly 2 weeks prior to presentation that has gradually intensified. He denies abdominal trauma or nausea or emesis. He further denies hematemesis or bloody stool. He denies weight loss. He denies pain worsening with respiration however pain is made worse by eating. Initial work-up in the ER was consistent with retroperitoneal hemorrhage on CT. Surgery was consulted and recommended hospitalist service to admit for monitoring and observation. Patient initial hemoglobin was 12.4 with systolics around mid 90s.. Patient received crystalloids. Initial white count 14.3. INR 1 creatinine 0.8. Hospitalist service was subsequently consulted At the time of evaluation patient is slightly anxious. Systolics around low 90s. No tachycardia or diaphoresis. Patient able to answer most of the questio ns. He complains of abdominal discomfort with pain 6 out of 10 to 8 out of 10 epigastric area relating to the flank and back. He denies recent trauma, URI symptoms, prior history of similar episodes or hospitalization or peptic ulcer disease. He is mildly short of breath but consistent with his baseline COPD. 03/14 6.30 AM- Responded to nurse call early this morning with dropping systolics. Hematocrit down to 24 from 35. Systolics down to mid 70s. Start aggressive crystalloid resuscitation/massive transfusion protocol with 4 units PRBC/vasopressors. Surgery consulted for emergent surgical intervention. 03/14-2 PM Patient now postop expiratory restart me. Status post 6 units PRBC transfusion. Currently on mechanical ventilation. On pressors to maintain map at goal. ICU sedation for mechanical ventilation on fentanyl/Versed. Potassium at 6. Initiate hyperkalemia protocol. Continue mechanical ventilation per protocol. Continue diuresis/crystalloids 03/15-patient doing well. On mechanical ventilation with ICU sedation on Versed/fentanyl. MONIKA drain output 90 cc last shift. Urine output greater than 30 cc an hour. Map at goal. Off pressors. Anticipate extubation in 24 hours. No overnight events, fever. White count 14,000. Hemoglobin stable around 11.1. Potassium trended down from 6-4.3. Eyes no even. Will start diuresing later in the evening in anticipation of extubation. Remains in ileus. Family at bedside. Discussed plan of care with family and patient. 03/16-patient doing well. Off sedations. Respond to verbal commands. Rapid shallow breathing index 22. Blood gas favorable on 25% FiO2. Good urine output. Status post 1 unit PRBC transfusion last night. No overnight fever chills. MONIKA drain no clear output. Nontender nondistended abdomen. ventilator liberation today. Discussed with surgery option of nutrition in light of 48 hours of nutrition support. Replace electrolytes as indicated. De-escalate antibiotics if approved by surgery. Continue diuresis to improve lung compliance/third spacing lymphedema 03/17-patient doing well overnight. Now on room air. Complains of dull discomfort/distention. X-ray abdomen pending. Chest x-ray this morning unremarkable. White count 16.4. Potassium 3.4/phosphorus 1.9/hemoglobin 9.5. No overnight fever. T-max99.5. Family at bedside. No concerns expressed to nursing staff. 03/18-patient feeling about her better. Had 2 BMs yesterday. No overnight fever chills or abdominal pain. Denies abdominal distention. No nausea. No concerns per staff. Tolerating diet and advancing as per surgery. Anticipate discharge in the next 24 to 48 hours. Continue bronchodilators 03/19 No overnight events. No new complaints. Has chronic dyspnea. He uses multiple inhalers at home but is not on home oxygen. 03/20 Overnight events or new complaints. Occasional cough. Some mild shortness of breath. Sats 95% on 1 L, his inhalers at home for COPD but does not have home oxygen. Encouraged incentive spirometry and activity. Review of Systems: denies headache/fever/chills/nausea/vomiting/chest pain/diarrhea. Otherwise see above. - Constitutional Vitals: Vital Signs Temp Pulse Resp BP Pulse Ox 98.2 F 69 18 153/83 93 03/20/19 04:13 03/20/19 04:13 03/20/19 04:13 03/20/19 04:13 03/20/19 04:13 Period Temp Pulse Resp BP Sys/Best Pulse Ox Last 24 Hr 97.6 F-98.3 F 61-72 16-18 104-153/68-88 93-97 Intake and Output 03/19/19 03/20/19 03/20/19 21:59 05:59 13:59 Intake Total 50 850 Output Total 1100 Balance 50 -250 Weight 95.708 kg Intake & Output: Intake & Output 03/19/19 03/20/19 03/20/19 21:59 05:59 13:59 Intake Total 50 850 Output Total 1100 Balance 50 -250 Weight 95.708 kg Intake: IV 50 50 Zosyn 3.375 gm In Dextrose 5% 50 50 in Water 50 ml @ 100 mls/hr IV Q6H [facility] Rx#:[id number] Oral 800 Output: Void Amount 1100 Other: Urine Appearance Clear Urine Color Bright Yellow Exam: General: Alert, Awake, No acute Distress Eyes/N/T: EOMI, Head/Neck: neck supple, CV: RRR, No murmurs, Pulm: Clear b/l, mildly diminished bases, mild rhonchi right base, no wheezing Abd: soft, nontender, +BS x4, binder in place Ext: no clubbing/cyanosis/edema Neuro: Alert, no focal deficits, moves all extremities, Skin: warm/dry Medical - PN: Obj Da - Labs CBC & Chem 7: 03/19/19 08:15 03/19/19 08:15 Labs: Abnormal Lab Results 03/19/19 03/19/19 03/18/19 08:15 08:15 04:33 WBC 13.8 H RBC 3.72 L Hgb 11.2 L Hct 33.8 L Plt Count 495 H MPV 7.1 L Gran # 8.8 H [place] # (Auto) 1.4 H Eos # (Auto) 0.8 H Carbon Dioxide 36 H 36 H Anion Gap 5.0 L BUN 6 L Creatinine 0.5 L 0.6 L Uric Acid 2.4 L Calcium 7.9 L Phosphorus 2.6 L Alkaline Phosphatase 36 L Total Protein 5.6 L 5.0 L Albumin 3.0 L Globulin 2.0 L Triglycerides 155 H 03/18/19 04:33 WBC 16.1 H RBC 3.29 L Hgb 9.9 L Hct 29.6 L Plt Count MPV 7.2 L Gran # [place] # (Auto) Eos # (Auto) Carbon Dioxide Anion Gap BUN Creatinine Uric Acid Calcium Phosphorus Alkaline Phosphatase Total Protein Albumin Globulin Triglycerides Meds: Medications Hydrocodone Bitart/Acetaminophen ([place] 5/325mg) 2 tab PO Q4HP PRN PRN Reason: PAIN LEVEL 3-6 Last Admin: 03/20/19 04:14 Dose: 2 tab Documented by: Albuterol Sulfate (Ventolin) 2 puff INH Q4HP PRN PRN Reason: Shortness Of Breath Albuterol Sulfate (Ventolin) 2.5 mg NEB Q4HP PRN PRN Reason: Shortness Of Breath Last Admin: 03/20/19 05:24 Dose: 2.5 mg Documented by: Bisacodyl (Dulcolax) 10 mg GA DAILYP PRN PRN Reason: Constipation Dextrose (Dextrose 50%) 0 ml IV UD PRN PRN Reason: Hypoglycemia Hydromorphone HCl (Dilaudid) 0.25 mg IV Q4-6HP PRN PRN Reason: PAIN LEVEL > 6 Last Admin: 03/18/19 23:14 Dose: 0.25 mg Documented by: Acetaminophen (Ofirmev) 1,000 mg in 100 mls @ 200 mls/hr IV Q6HP PRN; Protocol PRN Reason: PAIN/FEVER > 101 Last Infusion: 03/18/19 17:00 Dose: Infused Documented by: Piperacillin Sod/Tazobactam (Sod 3.375 gm/ Dextrose) 50 mls @ 100 mls/hr IV Q6H [facility]; Protocol Last Admin: 03/20/19 05:19 Dose: 100 mls/hr Documented by: Metoclopramide HCl (Reglan) 10 mg IV Q6 [facility] Last Admin: 03/20/19 05:19 Dose: 10 mg Documented by: Nicotine (Nicoderm) 21 mg TOPICAL DAILY@1000 JENNY Last Admin: 03/19/19 09:39 Dose: 21 mg Documented by: Fluticasone/Salmeterol Hfa 230/21 Inhaler 1 dose INH BID [facility] Last Admin: 03/19/19 21:18 Dose: 1 dose Documented by: Promethazine HCl (Phenergan) 12.5 mg IV Q4HP PRN PRN Reason: Nausea And Vomiting Tiotropium [place] (Spiriva) 18 mcg INH DAILY [facility] Last Admin: 03/19/19 09:39 Dose: 1 cap Documented by: Medical - PN: A/P - Time Spent With Patient Total time spent is greater than 50% in coordination of care (as documented) at patient's floor/unit and/or counseling patient: - Narrative A/P Narrative: A: *Splenic rupture, nontraumatic w/intraperitoneal hemorrhage: 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 -stable *Hyperkalemia: 2/2 massive hemolysis, resolved *Postoperative ileus: resolved *Mechanical ventilation for airway protection: ventilator liberated 03/16 AM. *PNA (Strep pneumo): *Low phosphorus/potassium: resolved *Leukocytosis/thrombocytosis: 2/2 splenectomy/steroids/stress due to intra- abdominal bleed and surgery -leukocytosis improved, no bandemia, platelets haven't peaked yet in post- splenectomy state *COPD (does not use home O2): Plan: -Postop care /diet advancement per surgery -deescalate zosyn to likely Levaquin -continue home bronchodilators/budesonide -PT OT -Anticipate SNF transfer -post-splenectomy vaccines for encapsulated organisms per PCP -ppx: SCD full code Procedures - Arterial Line Size (Gauge): 20
--- NOTE | 2019-03-20 09:56 | Discharge Summary ---
Medical - DS: Prov Patient information: Note initiated : 03/20/19 at 9:53 am Service Date, if different from initiated Date: [] Patient: Armando Amos 63 y/o M admitted on 03/14/19 for chest pain. Chief Complaint: [] Date of admission: 03/14/19 05:31 Discharge date: 03/21/19 Primary care physician: PCP No Consults: 03/14/19 Consult to Physician [CONS] Stat Comment: Consulting Provider: Domenic Verma Reason For Exam: Physician to Consult Consult to Physician [CONS] Stat Comment: Consulting Provider: Jessica Hendrix Reason For Exam: Physician to Consult Medical - DS: Meds - Discharge Medications Prescriptions: Levofloxacin [Levaquin] 750 mg PO DAILY #1 tab Transmission Status: Received by [facility] #[id number] Active and Home Medications: Home Medications hydrocodone 5 mg-acetaminophen 325 mg tablet See Rx Instructions PO Q6H PRN 06/08/18 [History Confirmed 03/14/19 Last Taken Unknown] naproxen 250 mg tablet 250 mg PO .COMPLEX PRN tab 06/08/18 [History Confirmed 03/14/19 Last Taken Unknown] tiotropium bromide 18 mcg capsule with inhalation device 1 cap INHALATION QDAY #90 puff 06/30/18 [Rx Confirmed 03/14/19 Last Taken Unknown] albuterol sulfate 90 mcg/actuation aerosol inhaler 2 puff INHALATION Q4H PRN #54 g 12/14/18 [Rx Confirmed 03/14/19 Last Taken Unknown] fluticasone propionate-salmeterol 230 mcg-21 mcg/actuation HFA inhaler 2 puff INHALATION BID #36 g 12/14/18 [Rx Confirmed 03/14/19 Last Taken Unknown] ipratropium-albuterol 0.5 mg-3 mg(2.5 mg base)/3 mL nebulization soln 3 ml INHALATION Q6H PRN #360 ml 12/14/18 [Rx Confirmed 03/14/19 Last Taken Unknown] Medical - DS: Hosp Hospital Course: Mr. Amos is a 63 year old M with a known history of COPD managed by pulmonology Dr. Bell. Patient presents to the ER with progressive upper abdominal pain that started roughly 2 weeks prior to presentation that has gradually intensified. He denies abdominal trauma or nausea or emesis. He further denies hematemesis or bloody stool. He denies weight loss. He denies pain worsening with respiration however pain is made worse by eating. Initial work-up in the ER was consistent with retroperitoneal hemorrhage on CT. Surgery was consulted and recommended hospitalist service to admit for monitoring and observation. Patient initial hemoglobin was 12.4 with systolics around mid 90s.. Patient received crystalloids. Initial white count 14.3. INR 1 creatinine 0.8. Hospitalist service was subsequently consulted At the time of evaluation patient is slightly anxious. Systolics around low 90s. No tachycardia or diaphoresis. Patient able to answer most of the questions. He complains of abdominal discomfort with pain 6 out of 10 to 8 out of 10 epigastric area relating to the flank and back. He denies recent trauma, URI symptoms, prior history of similar episodes or hospitalization or peptic ulcer disease. He is mildly short of breath but consistent with his baseline COPD. 03/14 6.30 AM- Responded to nurse call early this morning with dropping systolics. Hematocrit down to 24 from 35. Systolics down to mid 70s. Start aggressive crystalloid resuscitation/massive transfusion protocol with 4 units PRBC/vasopressors. Surgery consulted for emergent surgical intervention. 03/14-2 PM Patient now postop expiratory restart me. Status post 6 units PRBC transfusion. Currently on mechanical ventilation. On pressors to maintain map at goal. ICU sedation for mechanical ventilation on fentanyl/Versed. Potassium at 6. Initiate hyperkalemia protocol. Continue mechanical ventilation per protocol. Continue diuresis/crystalloids 03/15-patient doing well. On mechanical ventilation with ICU sedation on Versed/fentanyl. MONIKA drain output 90 cc last shift. Urine output greater than 30 cc an hour. Map at goal. Off pressors. Anticipate extubation in 24 hours. No overnight events, fever. White count 14,000. Hemoglobin stable around 11.1. Potassium trended down from 6-4.3. Eyes no even. Will start diuresing later in the evening in anticipation of extubation. Remains in ileus. Family at bedside. Discussed plan of care with family and patient. 03/16-patient doing well. Off sedations. Respond to verbal commands. Rapid shallow breathing index 22. Blood gas favorable on 25% FiO2. Good urine output. Status post 1 unit PRBC transfusion last night. No overnight fever chills. MONIKA drain no clear output. Nontender nondistended abdomen. ventilator liberation today. Discussed with surgery option of nutrition in light of 48 hours of nutrition support. Replace electrolytes as indicated. De-escalate antibiotics if approved by surgery. Continue diuresis to improve lung compliance/third spacing lymphedema 03/17-patient doing well overnight. Now on room air. Complains of dull discomfort/distention. X-ray abdomen pending. Chest x-ray this morning unremarkable. White count 16.4. Potassium 3.4/phosphorus 1.9/hemoglobin 9.5. No overnight fever. T-max99.5. Family at bedside. No concerns expressed to nursing staff. 03/18-patient feeling about her better. Had 2 BMs yesterday. No overnight fev er chills or abdominal pain. Denies abdominal distention. No nausea. No concerns per staff. Tolerating diet and advancing as per surgery. Anticipate discharge in the next 24 to 48 hours. Continue bronchodilators 03/19 No overnight events. No new complaints. Has chronic dyspnea. He uses multiple inhalers at home but is not on home oxygen. 03/20 Overnight events or new complaints. Occasional cough. Some mild shortness of breath. Sats 95% on 1 L, his inhalers at home for COPD but does not have home oxygen. Encouraged incentive spirometry and activity. 03/21 Doing well. Decreased oxygen need. Stable for discharge to rehab Discharge diagnosis: Traumatic splenic rupture Streptococcus pneumonia acute blood loss Secondary discharge diagnosis: Hyperkalemia postoperative ileus electrolyte imbalance COPD - Time Spent with Patient Total time spent providing and/or coordinating discharge services: Greater than 30 minutes Medical - DS: Exam - Constitutional Vitals: Vital Signs Temp Pulse Pulse Resp BP BP Pulse Ox 03/20/19 04:13 98.2 F 69 18 153/83 93 03/19/19 23:55 98 F 72 18 136/88 96 03/19/19 18:58 98.2 F 70 18 104/68 97 03/19/19 16:15 98.3 F 61 16 151/86 95 03/19/19 14:44 70 16 03/19/19 11:56 97.6 F 72 16 120/79 93 Intake and Output 03/19/19 03/20/19 03/20/19 21:59 05:59 13:59 Intake Total 50 850 Output Total 1100 Balance 50 -250 Intake: IV 50 50 Zosyn 3.375 gm In Dextrose 5% 50 50 in Water 50 ml @ 100 mls/hr IV Q6H [facility] Rx#:[id number] Oral 800 Output: Void Amount 1100 Other: Urine Appearance Clear Urine Color Bright Yellow Weight 95.708 kg Medical - DS: Data Labs on day of discharge: Preliminary micro results at discharge 03/16/19 10:10 Blood Culture - Preliminary Blood 03/16/19 10:17 Blood Culture - Preliminary Blood Medical - DS: A/P - Patient/Caregiver Discharge Instructions Activity: as per physical therapy Diet: Regular Diet Additional Instructions: Follow-up with PCP in 3 to 7 days Prescriptions: Levofloxacin [Levaquin] 750 mg PO DAILY #1 tab Transmission Status: Received by [facility] #[id number] - Follow up Plan Follow up with: Nikky,PCP [Primary Care Provider] - Jessica Hendrix MD [Physician] - Disposition: Xfer SNF Prognosis: Fair Rehab Potential: Fair I certify that the patient requires SNF services: Yes Overall status at discharge: patient is progressing back to baseline
[2019-03-20] MEDS: TIOTROPIUM BROMIDE 18 MCG INHALANT INH SCH (10:01)
[2019-03-20] MEDS: FLUTICASONE INH SCH ×2 (10:01→22:00)
[2019-03-20] MEDS: NICOTINE 21 MG PATCH TOPICAL SCH (10:01)
[2019-03-20] MEDS: SALMETEROL INH SCH ×2 (10:01→22:00)
[2019-03-20] MEDS: LEVOFLOXACIN 750 MG TABLET PO SCH (10:58)
--- NOTE | 2019-03-20 14:10 | General Surgery Progress Note ---
Subjective Patient reports: feels better, pain is less, tolerating a regular diet, flatus, bowel movement, afebrile Narrative: Note initiated : 03/20/19 at 2:08 pm Service Date, if different from initiated Date: [] Patient: Armando Amos 63 y/o M admitted on 03/14/19 for chest pain. Chief Complaint: [Patient is doing well. He has stable vital signs and is afebrile. He does have some dyspnea and requires 1-2 L of oxygen by cannula. He has cough , but no major congestion. His abdominal discomfort is much improved. He denies nausea. He is having regular bowel movements.] Objective Temp Pulse Resp BP Pulse Ox 99.1 F H 71 20 113/72 92 03/20/19 11:35 03/20/19 10:06 03/20/19 11:35 03/20/19 11:35 03/20/19 11:35 - Additional Data Intake & Output - Last 24 hours: Intake & Output 03/18/19 03/19/19 03/20/19 03/21/19 05:59 05:59 05:59 05:59 Intake Total 1649.0909 1500 1850 Output Total 730 1530 1330 Balance 919.0909 -30 520 Weight 215 lb 211 lb 211 lb - General physical appearance well developed, well nourished, no distress, obese - Eyes PERRL, normal ocular movement - ENT normal pinna, normal nares, normal mucosa, no hearing loss, no congestion - Neck no masses, no bruits, trachea midline, no lymphadenopathy, no venous distension - Respiratory normal expansion, normal respiratory effort, clear to auscultation - Cardiovascular Cardiovascular exam: Present: normal rate and rhythm, RRR, +S1, +S2. Absent: JVD, tachycardia - Abdomen tender (still with moderate tenderness of incision; abdomen is nondistended; active bowel sounds) - Integumentary no rash, no growths, no abnormal pigmentation - Neurologic normal coordination, normal sensation - Musculoskeletal normal gait, normal posture - Psychiatric oriented to time, oriented to person, oriented to place, speech is normal, memory intact - Labs 03/19/19 08:15 03/19/19 08:15 Assessment and Plan (1) Nontraumatic splenic rupture Status: Acute Assessment and plan: Patient remains clinically stable. Hemoglobin is stable Stable for transfer to nursing care facility in the morning Current Visit: Yes (2) COPD (chronic obstructive pulmonary disease) Status: Chronic Assessment and plan: Start inhalers as per home schedule Current Visit: No (3) Obstructive sleep apnea Status: Chronic Current Visit: No - Time Spent With Patient Total time spent is greater than 50% in coordination of care (as documented) at patient's floor/unit and/or counseling patient:
[2019-03-20] MEDS: 0.9 % SODIUM CHLORIDE 10 ML SYRINGE IV SCH (21:24)
[2019-03-21] MEDS: 0.9 % SODIUM CHLORIDE 10 ML SYRINGE IV SCH (06:00)
[2019-03-21] MEDS: ALBUTEROL SULFATE 2.5 MG/3 ML NEBULIZER NEB PRN (07:21)
[2019-03-21] MEDS: FLUTICASONE INH SCH (09:42)
[2019-03-21] MEDS: LEVOFLOXACIN 750 MG TABLET PO SCH (09:42)
[2019-03-21] MEDS: SALMETEROL INH SCH (09:42)
[2019-03-21] MEDS: TIOTROPIUM BROMIDE 18 MCG INHALANT INH SCH (09:42)
[2019-03-21] MEDS: NICOTINE 21 MG PATCH TOPICAL SCH (09:43)
[2019-03-21] MEDS: HYDROcodone/APAP 5/325MG TABLET PO PRN (09:48)
[2019-03-21] MEDS ORDERED: FLU VACC QS2019-20(6MOS UP)/PF 60 MCG/0.5 ML SYRINGE IM ONE (12:42)
== END 2019-03-21 13:05 | DRG 799 ==
LOC: ED 00:37 → ICU 05:30 → MEDSUR 03-17 15:16
PROVIDERS: ADMIT Internal Medicine; ATTEND Internal Medicine